=== PATIENT | male | born 1990 | race Caucasian/White ===

== ENCOUNTER 2017-06-21 16:16 | Inpatient (IN) | payer MEDICAID ==
[~2017-06-21] VITALS: Ht 177.8 cm; Wt 68.2 kg
[~2017-06-21 16:16] MED LIST: MECL-111 PO; NO HOME MEDS; ONDA4TAB12 PO
[2017-06-21 17:39] LABS: BASOPHILS # (AUTO) 0.1 X10'3 (0-0.2); BASOPHILS % (AUTO) 0.5 % (0-1); EOSINOPHILS # (AUTO) 0.2 X10'3 (0-0.9); EOSINOPHILS % (AUTO) 1.8 % (0-6); HEMATOCRIT 49.2 % (42.0-52.0); HEMOGLOBIN 16.5 g/dl (14.0-17.9); LYMPHOCYTES # (AUTO) 2.5 X10'3 (1.1-4.8); LYMPHOCYTES % (AUTO) 22.9 % (21-51); MEAN CORPUSCULAR HEMOGLOBIN 29.4 PG (27.0-31.0); MEAN CORPUSCULAR HGB CONC 33.5 % (33.0-36.5); MEAN CORPUSCULAR VOLUME 87.6 FL (78-98); MEAN PLATELET VOLUME 8.3 FL (7.4-10.4); MONOCYTES # (AUTO) 0.6 X10'3 (0-0.9); MONOCYTES % (AUTO) 5.5 % (2-12); NEUTROPHILS # (AUTO) 7.5 X10'3 (1.8-7.7); NEUTROPHILS % (AUTO) 69.3 % (42-75); PLATELET COUNT 266 X10'3 (140-440); RED BLOOD COUNT 5.61 X10'6 (4.70-6.10); RED CELL DISTRIBUTION WIDTH 12.3 % (11.5-14.5); WHITE BLOOD COUNT 10.9 X10'3 (4.5-11.0)
[2017-06-21 17:49] LABS: PARTIAL THROMBOPLASTIN TIME 26 SECONDS (22-32); PROTHROMBIN TIME 10.4 SECONDS (9.0-12.0)
[2017-06-21 17:54] LABS: ALANINE AMINOTRANSFERASE 40 U/L (12-78); ALBUMIN 4.5 G/DL (3.4-5.0); ALBUMIN/GLOBULIN RATIO 1.2 (1.1-1.5); ALKALINE PHOSPHATASE 78 IU/L (46-116); ANION GAP 10 (8-16); ASPARTATE AMINO TRANSFERASE 16 U/L (10-37); BLOOD UREA NITROGEN 12 MG/DL (7-18); BUN/CREATININE RATIO 14.6 (5.4-32.0); CHLORIDE 104 MMOL/L (99-107); CREATININE 0.82 MG/DL (0.60-1.10); GLUCOSE 100 MG/DL (70-104); SODIUM 142 MMOL/L (135-145); TOTAL CARBON DIOXIDE 28.3 MMOL/L (24-32); TOTAL PROTEIN 8.3 G/DL (6.4-8.2); eGFR > 90 ML/MIN
[2017-06-21] MEDS ORDERED: nitroGLYCERIN 0.4mg SUBLingual tab SL PRN (19:40)
[2017-06-21] MEDS ORDERED: aspirin 81mg tab.chew PO ONE (19:40)
[2017-06-21] MEDS ORDERED: temazepam 15mg capsule PO PRN (21:00)
[2017-06-21] MEDS ORDERED: normal saline 1000ml 1,000 ML IVB ONE (21:43)
[2017-06-21] MEDS: normal saline 1000ml 1,000 ML IV SCH (21:44)
[2017-06-21] MEDS ORDERED: magnesium hydroxide 30ml (MOM) UD suspension PO PRN (21:45)
[2017-06-21] MEDS ORDERED: acetaminophen 650mg rectal suppository RC PRN (21:45)
[2017-06-21] MEDS ORDERED: diphenhydrAMINE 50 mg/ml inj IV PRN (21:45)
[2017-06-21] MEDS ORDERED: HYDROcodone/acetaminophen 5mg/325mg tablet PO PRN (21:45)
[2017-06-21] MEDS ORDERED: acetaminophen 325mg tablet PO PRN ×2 (21:45)
[2017-06-21] MEDS ORDERED: diphenhydrAMINE 25mg capsule PO PRN (21:45)
[2017-06-21] MEDS ORDERED: ondansetron/PF 4mg/2ml inj IV PRN (21:45)
[2017-06-21] MEDS ORDERED: bisacodyl 10mg suppository rectal RC PRN (21:45)
[2017-06-21] MEDS ORDERED: metoclopramide 5 mg/ml inj IV PRN (21:45)
[2017-06-21] MEDS ORDERED: HYDROcodone/acetaminophen 10/325mg tab PO PRN (21:45)
[2017-06-21] MEDS ORDERED: mag hydrox/Alum hydrox/simeth 30ml oral suspension PO PRN (21:45)
[2017-06-21 22:36] LABS: CHOL/HDL RATIO 5.3 (0.00-4.99); CHOLESTEROL 165 MG/DL (0-200); HDL CHOLESTEROL 31 MG/DL (35-60); LDL CHOLESTEROL 118 MG/DL (50-100); LIPASE 98 U/L (73-393); MAGNESIUM 2.1 MG/DL (1.5-2.4); PHOSPHORUS 3.8 MG/DL (2.3-4.5); TRIGLYCERIDES 208 MG/DL (20-135)
[2017-06-21 22:50] LABS: URINE AMPHETAMINE SCREEN NEGATIVE (Neg); URINE BARBITUATE SCREEN NEGATIVE (Neg); URINE BENZODIAZEPINES SCREEN NEGATIVE (Neg); URINE CANNABINOID SCREEN NEGATIVE (Neg); URINE COCAINE SCREEN NEGATIVE (Neg); URINE METHADONE SCREEN NEGATIVE (Neg); URINE OPIATE SCREEN NEGATIVE (Neg); URINE PHENCYCLIDINE SCREEN NEGATIVE (Neg)
[2017-06-21 22:56] LABS: D-DIMER < 0.19 MG/L FEU (0-0.50)
[2017-06-21 23:00] VITALS: BP 118/74
[2017-06-21] MEDS: heparin, porcine 5000 units/ml vial SQ SCH (23:13)
[2017-06-22 05:47] LABS: BASOPHILS % (AUTO) 0.2 % (0-1); EOSINOPHILS # (AUTO) 0.3 X10'3 (0-0.9); EOSINOPHILS % (AUTO) 2.1 % (0-6); HEMATOCRIT 42.9 % (42.0-52.0); HEMOGLOBIN 14.6 g/dl (14.0-17.9); LYMPHOCYTES % (AUTO) 40.7 % (21-51); MEAN CORPUSCULAR HEMOGLOBIN 29.9 PG (27.0-31.0); MEAN CORPUSCULAR HGB CONC 33.9 % (33.0-36.5); MEAN CORPUSCULAR VOLUME 88.3 FL (78-98); MEAN PLATELET VOLUME 8.6 FL (7.4-10.4); MONOCYTES # (AUTO) 0.9 X10'3 (0-0.9); MONOCYTES % (AUTO) 7.5 % (2-12); NEUTROPHILS # (AUTO) 6.1 X10'3 (1.8-7.7); NEUTROPHILS % (AUTO) 49.5 % (42-75); PLATELET COUNT 232 X10'3 (140-440); RED BLOOD COUNT 4.86 X10'6 (4.70-6.10); RED CELL DISTRIBUTION WIDTH 12.5 % (11.5-14.5); WHITE BLOOD COUNT 12.3 X10'3 (4.5-11.0)
[2017-06-22 06:01] LABS: ALBUMIN 3.6 G/DL (3.4-5.0); ANION GAP 6 (8-16); BLOOD UREA NITROGEN 11 MG/DL (7-18); BUN/CREATININE RATIO 12.9 (5.4-32.0); CALCIUM 9.1 MG/DL (8.5-10.1); CHLORIDE 109 MMOL/L (99-107); CREATININE 0.85 MG/DL (0.60-1.10); GLUCOSE 90 MG/DL (70-104); POTASSIUM 3.9 MMOL/L (3.5-5.1); SODIUM 144 MMOL/L (135-145); eGFR > 90 ML/MIN
[2017-06-22] MEDS ORDERED: pantoprazole 40mg Tablet.DR PO SCH (07:30)
[2017-06-22] MEDS ORDERED: docusate sod 100mg capsule PO SCH (08:00)
[2017-06-22] MEDS ORDERED: nicotine 21mg patch - 24 hr TD SCH (08:00)
[2017-06-22] MEDS ORDERED: aspirin 81mg tab.chew PO SCH (08:30)
[2017-06-22] MEDS: normal saline 1000ml 1,000 ML IV SCH (08:45)
[2017-06-22] MEDS: heparin, porcine 5000 units/ml vial SQ SCH ×2 (08:50→16:10)
[2017-06-22 08:55] VITALS: BP 120/68
[2017-06-22] MEDS ORDERED: nitroGLYCERIN 0.4mg SUBLingual tab SL PRN (15:05)
[2017-06-22] MEDS ORDERED: regadenoson 0.4mg/5ml syringe IV ONE (15:05)
[2017-06-22] MEDS ORDERED: aminophylline 250mg/10ml inj. IV PRN (15:05)
[2017-06-22] MEDS ORDERED: metoprolol tartrate 1mg/ml inj IV PRN (15:05)
[2017-06-22] MEDS ORDERED: iohexol 300mg/ml 100ml inj. ONE (16:00)
[2017-06-22] MEDS ORDERED: QUET50TA PO (16:25)
[2017-06-22] MEDS ORDERED: NICO-687 TD (16:25)
[2017-06-22] MEDS ORDERED: QUEtiapine 25mg tablet PO STA (17:15)
== END 2017-06-22 18:21 | disposition home or self-care (01) | DRG 203 ==
LOC: ER 16:17 → ED HOLD 21:49 → EDBEDREQ 22:20 → SUR 3N 22:56
PROVIDERS: ADMIT Family Medicine; ATTEND Family Medicine
PROC: BW241ZZ Computerized Tomography (CT Scan) of Chest and Abdomen using Low Osmolar Contrast (ICD-10-PCS; principal; 2017-06-22)
DX: R07.89 Other chest pain (principal); F20.9 Schizophrenia, unspecified; I10 Essential (primary) hypertension; E86.1 Hypovolemia; F12.90 Cannabis use, unspecified, uncomplicated; F17.210 Nicotine dependence, cigarettes, uncomplicated; F31.9 Bipolar disorder, unspecified; F41.0 Panic disorder [episodic paroxysmal anxiety]; F41.1 Generalized anxiety disorder; F90.9 Attention-deficit hyperactivity disorder, unspecified type; I49.3 Ventricular premature depolarization; K31.9 Disease of stomach and duodenum, unspecified; Y90.3 Blood alcohol level of 60-79 mg/100 ml; F10.10 Alcohol abuse, uncomplicated; F15.10 Other stimulant abuse, uncomplicated; Z88.0 Allergy status to penicillin; Z88.8 Allergy status to other drugs, medicaments and biological substances; Z79.899 Other long term (current) drug therapy; Z79.01 Long term (current) use of anticoagulants; Z79.82 Long term (current) use of aspirin; Z82.49 Family history of ischemic heart disease and other diseases of the circulatory system; Z56.0 Unemployment, unspecified
CPT/HCPCS: 36415; 71045; 71260; 80048; 80053; 80061; 80305; 83690; 83735; 84100; 84443; 84484; 85025; 85379; 85610; 85730; 87070; 93005; 93306; 99285; J1644; J7030; Q9967

== ENCOUNTER 2017-06-24 00:13 | Observation (INO) | payer MEDICAID ==
[~2017-06-24] VITALS: Ht 177.8 cm; Wt 70.0 kg
[2017-06-24] VITALS (11 sets, daily range): BP systolic 116–168; BP diastolic 72–102
[~2017-06-24 00:13] MED LIST changes: -MECL-111 PO; +NICO-687 TD; -NO HOME MEDS; -ONDA4TAB12 PO; +QUET50TA PO
[2017-06-24] MEDS ORDERED: aspirin 81mg tab.chew PO ONE ×2 (00:40→01:25)
[2017-06-24] MEDS ORDERED: nitroGLYCERIN 0.4mg SUBLingual tab SL PRN ×3 (00:40→04:25)
[2017-06-24 00:59] LABS: BASOPHILS # (AUTO) 0.1 X10'3 (0-0.2); BASOPHILS % (AUTO) 0.7 % (0-1); EOSINOPHILS # (AUTO) 0.1 X10'3 (0-0.9); HEMATOCRIT 45.9 % (42.0-52.0); HEMOGLOBIN 15.4 g/dl (14.0-17.9); LYMPHOCYTES # (AUTO) 3.7 X10'3 (1.1-4.8); LYMPHOCYTES % (AUTO) 30.5 % (21-51); MEAN CORPUSCULAR HEMOGLOBIN 29.6 PG (27.0-31.0); MEAN CORPUSCULAR HGB CONC 33.6 % (33.0-36.5); MEAN CORPUSCULAR VOLUME 88.1 FL (78-98); MEAN PLATELET VOLUME 8.6 FL (7.4-10.4); MONOCYTES # (AUTO) 0.7 X10'3 (0-0.9); MONOCYTES % (AUTO) 5.4 % (2-12); NEUTROPHILS # (AUTO) 7.7 X10'3 (1.8-7.7); NEUTROPHILS % (AUTO) 62.4 % (42-75); PLATELET COUNT 266 X10'3 (140-440); RED BLOOD COUNT 5.21 X10'6 (4.70-6.10); RED CELL DISTRIBUTION WIDTH 11.4 % (11.5-14.5); WHITE BLOOD COUNT 12.3 X10'3 (4.5-11.0)
[2017-06-24 01:09] LABS: PARTIAL THROMBOPLASTIN TIME 25 SECONDS (22-32)
[2017-06-24 01:24] LABS: CREATINE KINASE 65 U/L (39-308)
[2017-06-24 01:27] LABS: C-REACTIVE PROTEIN < 0.05 MG/DL (0.0-0.5)
[2017-06-24 02:12] LABS: ALANINE AMINOTRANSFERASE 40 U/L (12-78); ALBUMIN 4.5 G/DL (3.4-5.0); ALBUMIN/GLOBULIN RATIO 1.2 (1.1-1.5); ALKALINE PHOSPHATASE 87 IU/L (46-116); ANION GAP 12 (8-16); ASPARTATE AMINO TRANSFERASE 15 U/L (10-37); BILIRUBIN,TOTAL 0.6 MG/DL (0.1-1.0); BLOOD UREA NITROGEN 14 MG/DL (7-18); BUN/CREATININE RATIO 17.7 (5.4-32.0); CALCIUM 9.9 MG/DL (8.5-10.1); CHLORIDE 105 MMOL/L (99-107); CREATININE 0.79 MG/DL (0.60-1.10); GLUCOSE 103 MG/DL (70-104); POTASSIUM 3.9 MMOL/L (3.5-5.1); SODIUM 144 MMOL/L (135-145); TOTAL CARBON DIOXIDE 27.4 MMOL/L (24-32); TOTAL PROTEIN 8.2 G/DL (6.4-8.2); eGFR > 90 ML/MIN
[2017-06-24 02:19] LABS: CLARITY,URINE Clear (Clear); COLOR,URINE Yellow (Yellow); GLUCOSE, URINE Negative (Neg); KETONES,URINE Negative (Neg); LEUKOCYTE ESTERASE ,URINE Negative (Neg); NITRITES, URINE Negative (Neg); OCCULT BLOOD,URINE Negative (Neg); PROTEIN,URINE Negative (Neg); UROBILINOGEN,URINE 0.2 E.U/dL (0.2-1.0)
[2017-06-24 02:26] LABS: UA COLLECTION TYPE CLN CATCH MIDSTREAM
[2017-06-24 02:28] LABS: URINE AMPHETAMINE SCREEN NEGATIVE (Neg); URINE BARBITUATE SCREEN NEGATIVE (Neg); URINE BENZODIAZEPINES SCREEN NEGATIVE (Neg); URINE CANNABINOID SCREEN NEGATIVE (Neg); URINE COCAINE SCREEN NEGATIVE (Neg); URINE METHADONE SCREEN NEGATIVE (Neg); URINE OPIATE SCREEN NEGATIVE (Neg); URINE PHENCYCLIDINE SCREEN NEGATIVE (Neg)
[2017-06-24] MEDS ORDERED: aminophylline 250mg/10ml inj. IV PRN (04:25)
[2017-06-24] MEDS ORDERED: mag hydrox/Alum hydrox/simeth 30ml oral suspension PO PRN (04:25)
[2017-06-24] MEDS ORDERED: regadenoson 0.4mg/5ml syringe IV ONE ×2 (04:25→09:39)
[2017-06-24] MEDS ORDERED: metoprolol tartrate 1mg/ml inj IV PRN (04:25)
[2017-06-24] MEDS ORDERED: ondansetron/PF 4mg/2ml inj IV PRN (04:25)
[2017-06-24] MEDS ORDERED: magnesium hydroxide 30ml (MOM) UD suspension PO PRN (04:25)
[2017-06-24] MEDS ORDERED: acetaminophen 325mg tablet PO PRN ×2 (04:25)
[2017-06-24] MEDS: QUEtiapine 25mg tablet PO SCH ×2 (08:26→19:53)
[2017-06-24] MEDS ORDERED: aminophylline inj. 0 ML IV ONE (09:39)
[2017-06-24] MEDS ORDERED: nicotine 14mg patch - 24hr TD SCH (12:20)
[2017-06-24] MEDS ORDERED: ATEN25TA PO (18:12)
[2017-06-24] MEDS ORDERED: ATOR40TA PO (18:12)
[2017-06-24] MEDS ORDERED: ASPI81TA52 PO (18:12)
== END 2017-06-24 20:10 | disposition home or self-care (01) ==
LOC: ER 00:14 → ED HOLD 04:23 → PCU 3S 05:25
PROVIDERS: ADMIT Internal Medicine; ATTEND Family Medicine
DX: R07.89 Other chest pain (principal); R55 Syncope and collapse; D72.829 Elevated white blood cell count, unspecified; F20.9 Schizophrenia, unspecified; F15.90 Other stimulant use, unspecified, uncomplicated; Z72.0 Tobacco use; F10.20 Alcohol dependence, uncomplicated; Z82.49 Family history of ischemic heart disease and other diseases of the circulatory system; Z90.81 Acquired absence of spleen
CPT/HCPCS: 36415; 78452; 80053; 80305; 81003; 82550; 82553; 82948; 83735; 83880; 84484; 85025; 85610; 85730; 86140; 87070; 93005; 93017; 99285; A9500; G0378; J0280

== ENCOUNTER 2017-06-26 01:33 | Emergency (ER) | payer MEDICAID ==
[~2017-06-26] VITALS: Ht 154.9 cm; Wt 68.1 kg
[~2017-06-26 01:33] MED LIST changes: +ASPI81TA52 PO; +ATEN25TA PO; +ATOR40TA PO
[2017-06-26 02:55] VITALS: BP 142/63
== END 2017-06-26 02:49 | disposition home or self-care (01) ==
LOC: ER 01:33
DX: R00.2 Palpitations (principal); F20.9 Schizophrenia, unspecified; Z88.0 Allergy status to penicillin; Z88.8 Allergy status to other drugs, medicaments and biological substances
CPT/HCPCS: 93005; 99283

== ENCOUNTER 2017-06-27 22:32 | Emergency (ER) | payer MEDICAID ==
[~2017-06-27] VITALS: Ht 177.8 cm; Wt 70.6 kg
[2017-06-28 02:32] VITALS: BP 143/82
[2017-06-28] MEDS ORDERED: CLIN-80 PO (03:03)
== END 2017-06-28 03:00 | disposition home or self-care (01) ==
LOC: ER 22:33
DX: K04.7 Periapical abscess without sinus (principal); F12.10 Cannabis abuse, uncomplicated; F15.10 Other stimulant abuse, uncomplicated; Z88.8 Allergy status to other drugs, medicaments and biological substances; Z88.0 Allergy status to penicillin; Z79.82 Long term (current) use of aspirin
CPT/HCPCS: 99283

== ENCOUNTER 2017-07-19 19:07 | Emergency (ER) | payer MEDICAID ==
[~2017-07-19] VITALS: Ht 177.8 cm; Wt 71.8 kg
[~2017-07-19 19:07] MED LIST changes: +CLIN-80 PO
[2017-07-19 19:40] LABS: BASOPHILS # (AUTO) 0.1 X10'3 (0-0.2); BASOPHILS % (AUTO) 0.5 % (0-1); EOSINOPHILS # (AUTO) 0.2 X10'3 (0-0.9); EOSINOPHILS % (AUTO) 1.9 % (0-6); HEMATOCRIT 48.2 % (42.0-52.0); HEMOGLOBIN 16.5 g/dl (14.0-17.9); LYMPHOCYTES # (AUTO) 3.1 X10'3 (1.1-4.8); LYMPHOCYTES % (AUTO) 27.7 % (21-51); MEAN CORPUSCULAR HEMOGLOBIN 29.9 PG (27.0-31.0); MEAN CORPUSCULAR HGB CONC 34.3 % (33.0-36.5); MEAN CORPUSCULAR VOLUME 87.2 FL (78-98); MEAN PLATELET VOLUME 8.4 FL (7.4-10.4); MONOCYTES # (AUTO) 0.6 X10'3 (0-0.9); MONOCYTES % (AUTO) 5.6 % (2-12); NEUTROPHILS # (AUTO) 7.2 X10'3 (1.8-7.7); NEUTROPHILS % (AUTO) 64.3 % (42-75); PLATELET COUNT 283 X10'3 (140-440); RED BLOOD COUNT 5.52 X10'6 (4.70-6.10); RED CELL DISTRIBUTION WIDTH 12.3 % (11.5-14.5); WHITE BLOOD COUNT 11.2 X10'3 (4.5-11.0)
[2017-07-19 19:52] LABS: PARTIAL THROMBOPLASTIN TIME 26 SECONDS (22-32); PROTHROMBIN TIME 10.6 SECONDS (9.0-12.0)
[2017-07-19 19:59] LABS: ALANINE AMINOTRANSFERASE 64 U/L (12-78); ALBUMIN 4.8 G/DL (3.4-5.0); ALBUMIN/GLOBULIN RATIO 1.3 (1.1-1.5); ALKALINE PHOSPHATASE 88 IU/L (46-116); ANION GAP 8 (8-16); ASPARTATE AMINO TRANSFERASE 19 U/L (10-37); BILIRUBIN,TOTAL 1.2 MG/DL (0.1-1.0); BLOOD UREA NITROGEN 15 MG/DL (7-18); BUN/CREATININE RATIO 16.7 (5.4-32.0); CALCIUM 9.9 MG/DL (8.5-10.1); CHLORIDE 103 MMOL/L (99-107); GLUCOSE 101 MG/DL (70-104); POTASSIUM 3.7 MMOL/L (3.5-5.1); SODIUM 141 MMOL/L (135-145); TOTAL CARBON DIOXIDE 29.6 MMOL/L (24-32); TOTAL PROTEIN 8.5 G/DL (6.4-8.2); eGFR > 90 ML/MIN
[2017-07-19] MEDS ORDERED: CIPR-230 PO (21:48)
[2017-07-19] MEDS ORDERED: LOPE-155 PO (21:48)
[2017-07-19] MEDS ORDERED: IBUP-1984 PO (21:49)
[2017-07-19 21:55] VITALS: BP 128/77
[2017-07-20] MEDS ORDERED: ALBU8.5H8 IH (18:11)
== END 2017-07-19 21:57 | disposition home or self-care (01) ==
LOC: ER 19:08
DX: R07.89 Other chest pain (principal); R19.7 Diarrhea, unspecified; R68.83 Chills (without fever); I49.9 Cardiac arrhythmia, unspecified; F12.10 Cannabis abuse, uncomplicated; F15.10 Other stimulant abuse, uncomplicated; Z98.890 Other specified postprocedural states; Z56.0 Unemployment, unspecified; Z88.0 Allergy status to penicillin; Z88.1 Allergy status to other antibiotic agents; Z88.8 Allergy status to other drugs, medicaments and biological substances; Z79.82 Long term (current) use of aspirin; Z79.899 Other long term (current) drug therapy
CPT/HCPCS: 36415; 71045; 80053; 84484; 85025; 85610; 85730; 93005; 99285

== ENCOUNTER 2017-07-20 16:14 | Emergency (ER) | payer MEDICAID ==
[~2017-07-20] VITALS: Ht 177.8 cm; Wt 70.8 kg
[~2017-07-20 16:14] MED LIST changes: +CIPR-230 PO; +IBUP-1984 PO; +LOPE-155 PO
[2017-07-20] MEDS ORDERED: ketorolac trometh inj. 60 MG/2 ML VIAL IM ONE (17:05)
[2017-07-20] MEDS ORDERED: ALBU8.5H8 IH (18:11)
[2017-07-20 18:17] VITALS: BP 135/41
== END 2017-07-20 18:20 | disposition home or self-care (01) ==
LOC: ER 16:15
DX: F41.9 Anxiety disorder, unspecified (principal); F20.9 Schizophrenia, unspecified; F17.200 Nicotine dependence, unspecified, uncomplicated; F12.10 Cannabis abuse, uncomplicated; F15.10 Other stimulant abuse, uncomplicated; Z88.1 Allergy status to other antibiotic agents; Z88.0 Allergy status to penicillin; Z88.8 Allergy status to other drugs, medicaments and biological substances; Z79.82 Long term (current) use of aspirin
CPT/HCPCS: 93005; 96372; 99283; J1885

== ENCOUNTER 2017-07-24 01:44 | Emergency (ER) | payer MEDICAID ==
[~2017-07-24] VITALS: Ht 177.8 cm; Wt 71.3 kg
[~2017-07-24 01:44] MED LIST changes: +ALBU8.5H8 IH
[2017-07-24] MEDS ORDERED: ESCI5TAB PO (04:12)
[2017-07-24 05:02] VITALS: BP 135/63
== END 2017-07-24 04:59 | disposition home or self-care (01) ==
LOC: ER 01:45
DX: F41.9 Anxiety disorder, unspecified (principal); F31.9 Bipolar disorder, unspecified; F20.9 Schizophrenia, unspecified; F17.200 Nicotine dependence, unspecified, uncomplicated; F12.10 Cannabis abuse, uncomplicated; F15.10 Other stimulant abuse, uncomplicated; Z56.0 Unemployment, unspecified; Z88.0 Allergy status to penicillin; Z88.1 Allergy status to other antibiotic agents; Z88.8 Allergy status to other drugs, medicaments and biological substances; Z79.82 Long term (current) use of aspirin; Z79.899 Other long term (current) drug therapy
CPT/HCPCS: 99284

== ENCOUNTER 2017-07-29 22:11 | Emergency (ER) | payer MEDICAID ==
[~2017-07-29] VITALS: Ht 177.8 cm; Wt 72.4 kg
[~2017-07-29 22:11] MED LIST changes: -ATOR40TA PO; +ESCI5TAB PO
[2017-07-29 23:17] VITALS: BP 124/63
== END 2017-07-29 23:19 | disposition home or self-care (01) ==
LOC: ER 22:12
DX: R06.02 Shortness of breath (principal); R07.89 Other chest pain; R55 Syncope and collapse; I49.9 Cardiac arrhythmia, unspecified; F12.10 Cannabis abuse, uncomplicated; F15.10 Other stimulant abuse, uncomplicated; Z56.0 Unemployment, unspecified; Z88.0 Allergy status to penicillin; Z88.8 Allergy status to other drugs, medicaments and biological substances; Z79.82 Long term (current) use of aspirin; Z79.899 Other long term (current) drug therapy
CPT/HCPCS: 93005; 99283

== ENCOUNTER 2017-08-07 10:52 | Emergency (ER) | payer MEDICAID ==
[~2017-08-07] VITALS: Ht 177.8 cm; Wt 70.0 kg
[~2017-08-07 10:52] MED LIST changes: -CIPR-230 PO; -CLIN-80 PO
[2017-08-07 11:32] LABS: BASOPHILS % (AUTO) 0.5 % (0-1); EOSINOPHILS # (AUTO) 0.1 X10'3 (0-0.9); EOSINOPHILS % (AUTO) 1.2 % (0-6); HEMATOCRIT 49.5 % (42.0-52.0); HEMOGLOBIN 16.9 g/dl (14.0-17.9); LYMPHOCYTES % (AUTO) 24.5 % (21-51); MEAN CORPUSCULAR HEMOGLOBIN 29.7 PG (27.0-31.0); MEAN CORPUSCULAR HGB CONC 34.2 % (33.0-36.5); MEAN CORPUSCULAR VOLUME 86.9 FL (78-98); MEAN PLATELET VOLUME 7.9 FL (7.4-10.4); MONOCYTES # (AUTO) 0.5 X10'3 (0-0.9); MONOCYTES % (AUTO) 5.5 % (2-12); NEUTROPHILS # (AUTO) 5.7 X10'3 (1.8-7.7); NEUTROPHILS % (AUTO) 68.3 % (42-75); PLATELET COUNT 307 X10'3 (140-440); RED CELL DISTRIBUTION WIDTH 12.8 % (11.5-14.5); WHITE BLOOD COUNT 8.3 X10'3 (4.5-11.0)
[2017-08-07 11:43] LABS: PARTIAL THROMBOPLASTIN TIME 27 SECONDS (22-32); PROTHROMBIN TIME 10.8 SECONDS (9.0-12.0)
[2017-08-07 11:55] LABS: ALANINE AMINOTRANSFERASE 49 U/L (12-78); ALBUMIN 4.4 G/DL (3.4-5.0); ALBUMIN/GLOBULIN RATIO 1.2 (1.1-1.5); ALKALINE PHOSPHATASE 80 IU/L (46-116); ANION GAP 14 (8-16); ASPARTATE AMINO TRANSFERASE 20 U/L (10-37); BILIRUBIN,TOTAL 1.1 MG/DL (0.1-1.0); BLOOD UREA NITROGEN 13 MG/DL (7-18); BUN/CREATININE RATIO 13.7 (5.4-32.0); CALCIUM 9.6 MG/DL (8.5-10.1); CHLORIDE 103 MMOL/L (99-107); CREATININE 0.95 MG/DL (0.60-1.10); GLUCOSE 135 MG/DL (70-104); POTASSIUM 3.7 MMOL/L (3.5-5.1); SODIUM 143 MMOL/L (135-145); TOTAL CARBON DIOXIDE 25.7 MMOL/L (24-32); eGFR > 90 ML/MIN
[2017-08-07 13:10] LABS: URINE AMPHETAMINE SCREEN NEGATIVE (Neg); URINE BARBITUATE SCREEN NEGATIVE (Neg); URINE BENZODIAZEPINES SCREEN NEGATIVE (Neg); URINE CANNABINOID SCREEN POSITIVE (Neg); URINE COCAINE SCREEN NEGATIVE (Neg); URINE METHADONE SCREEN NEGATIVE (Neg); URINE OPIATE SCREEN NEGATIVE (Neg); URINE PHENCYCLIDINE SCREEN NEGATIVE (Neg)
[2017-08-07 14:26] VITALS: BP 115/71
== END 2017-08-07 14:27 | disposition home or self-care (01) ==
LOC: ER 10:52
DX: R55 Syncope and collapse (principal); F41.9 Anxiety disorder, unspecified; F20.9 Schizophrenia, unspecified; F32.9 Major depressive disorder, single episode, unspecified; F12.90 Cannabis use, unspecified, uncomplicated; F15.90 Other stimulant use, unspecified, uncomplicated; Z56.0 Unemployment, unspecified; Z88.0 Allergy status to penicillin; Z79.899 Other long term (current) drug therapy; Z79.82 Long term (current) use of aspirin
CPT/HCPCS: 36415; 71045; 80053; 80305; 82948; 84484; 85025; 85610; 85730; 93005; 99291

== ENCOUNTER 2017-08-09 21:35 | Emergency (ER) | payer MEDICAID ==
[~2017-08-09] VITALS: Ht 177.8 cm; Wt 71.3 kg
[2017-08-09 22:04] VITALS: BP 144/96
== END 2017-08-09 22:09 | disposition home or self-care (01) ==
LOC: ER 21:36
DX: R07.89 Other chest pain (principal); J20.9 Acute bronchitis, unspecified; G62.9 Polyneuropathy, unspecified; F12.10 Cannabis abuse, uncomplicated; F15.10 Other stimulant abuse, uncomplicated; Z88.0 Allergy status to penicillin; Z88.1 Allergy status to other antibiotic agents; Z88.8 Allergy status to other drugs, medicaments and biological substances; Z79.82 Long term (current) use of aspirin; Z79.899 Other long term (current) drug therapy; Z56.0 Unemployment, unspecified
CPT/HCPCS: 99281

== ENCOUNTER 2017-08-11 11:41 | Emergency (ER) | payer MEDICAID ==
[~2017-08-11] VITALS: Ht 177.8 cm; Wt 75.0 kg
[2017-08-11 12:08] LABS: BASOPHILS # (AUTO) 0.2 X10'3 (0-0.2); BASOPHILS % (AUTO) 2.1 % (0-1); EOSINOPHILS # (AUTO) 0.1 X10'3 (0-0.9); EOSINOPHILS % (AUTO) 0.7 % (0-6); HEMATOCRIT 50.2 % (42.0-52.0); HEMOGLOBIN 17.2 g/dl (14.0-17.9); LYMPHOCYTES # (AUTO) 2.6 X10'3 (1.1-4.8); LYMPHOCYTES % (AUTO) 26.7 % (21-51); MEAN CORPUSCULAR HEMOGLOBIN 29.5 PG (27.0-31.0); MEAN CORPUSCULAR HGB CONC 34.2 % (33.0-36.5); MEAN CORPUSCULAR VOLUME 86.3 FL (78-98); MEAN PLATELET VOLUME 8.4 FL (7.4-10.4); MONOCYTES # (AUTO) 0.5 X10'3 (0-0.9); NEUTROPHILS # (AUTO) 6.2 X10'3 (1.8-7.7); NEUTROPHILS % (AUTO) 65.5 % (42-75); PLATELET COUNT 305 X10'3 (140-440); RED BLOOD COUNT 5.82 X10'6 (4.70-6.10); RED CELL DISTRIBUTION WIDTH 11.9 % (11.5-14.5); WHITE BLOOD COUNT 9.6 X10'3 (4.5-11.0)
[2017-08-11 12:19] LABS: PARTIAL THROMBOPLASTIN TIME 27 SECONDS (22-32); PROTHROMBIN TIME 10.7 SECONDS (9.0-12.0)
[2017-08-11 12:29] LABS: ALANINE AMINOTRANSFERASE 49 U/L (12-78); ALBUMIN 4.6 G/DL (3.4-5.0); ALBUMIN/GLOBULIN RATIO 1.3 (1.1-1.5); ALKALINE PHOSPHATASE 83 IU/L (46-116); ANION GAP 6 (8-16); ASPARTATE AMINO TRANSFERASE 21 U/L (10-37); BILIRUBIN,TOTAL 1.2 MG/DL (0.1-1.0); BLOOD UREA NITROGEN 14 MG/DL (7-18); BUN/CREATININE RATIO 15.1 (5.4-32.0); CHLORIDE 104 MMOL/L (99-107); CREATININE 0.93 MG/DL (0.60-1.10); GLUCOSE 103 MG/DL (70-104); POTASSIUM 3.9 MMOL/L (3.5-5.1); SODIUM 142 MMOL/L (135-145); TOTAL CARBON DIOXIDE 31.9 MMOL/L (24-32); TOTAL PROTEIN 8.2 G/DL (6.4-8.2); eGFR > 90 ML/MIN
[2017-08-11 12:38] LABS: CALCIUM 9.6 MG/DL (8.5-10.1)
[2017-08-11] MEDS ORDERED: LIDOcaine 1.5% w/epinephrine 1:200,000 5ml ampul IJ ONE (13:10)
[2017-08-11] MEDS ORDERED: SULF1TAB49 PO (13:35)
[2017-08-11 14:17] VITALS: BP 125/53
== END 2017-08-11 14:19 | disposition home or self-care (01) ==
LOC: ER 11:42
DX: R07.89 Other chest pain (principal); L02.411 Cutaneous abscess of right axilla; F12.10 Cannabis abuse, uncomplicated; F15.10 Other stimulant abuse, uncomplicated; Z88.0 Allergy status to penicillin; Z88.1 Allergy status to other antibiotic agents; Z88.8 Allergy status to other drugs, medicaments and biological substances; Z79.82 Long term (current) use of aspirin; Z79.1 Long term (current) use of non-steroidal anti-inflammatories (NSAID); Z79.899 Other long term (current) drug therapy; Z56.0 Unemployment, unspecified
CPT/HCPCS: 10060; 36415; 71045; 80053; 84484; 85025; 85610; 85730; 93005; 99285; J3490

== ENCOUNTER 2017-08-14 22:27 | Emergency (ER) | payer MEDICAID ==
[~2017-08-14] VITALS: Ht 177.8 cm; Wt 71.0 kg
[~2017-08-14 22:27] MED LIST changes: +SULF1TAB49 PO
[2017-08-14 23:57] VITALS: BP 137/96
== END 2017-08-14 23:58 | disposition home or self-care (01) ==
LOC: ER 22:28
DX: R07.89 Other chest pain (principal); F12.10 Cannabis abuse, uncomplicated; F15.10 Other stimulant abuse, uncomplicated; Z88.1 Allergy status to other antibiotic agents; Z88.0 Allergy status to penicillin; Z88.8 Allergy status to other drugs, medicaments and biological substances; Z79.82 Long term (current) use of aspirin
CPT/HCPCS: 93005; 99283

== ENCOUNTER 2017-08-20 22:04 | Emergency (ER) | payer MEDICAID ==
[~2017-08-20] VITALS: Ht 147.3 cm; Wt 70.4 kg
[~2017-08-20 22:04] MED LIST changes: -IBUP-1984 PO
[2017-08-21] MEDS ORDERED: aspirin 81mg tab.chew PO ONE (00:45)
[2017-08-21 00:56] VITALS: BP 138/75
== END 2017-08-21 00:59 | disposition home or self-care (01) ==
LOC: ER 22:06
DX: R07.89 Other chest pain (principal); F12.10 Cannabis abuse, uncomplicated; F15.10 Other stimulant abuse, uncomplicated; Z88.0 Allergy status to penicillin; Z88.1 Allergy status to other antibiotic agents; Z88.8 Allergy status to other drugs, medicaments and biological substances; Z86.14 Personal history of Methicillin resistant Staphylococcus aureus infection; Z79.82 Long term (current) use of aspirin; Z79.899 Other long term (current) drug therapy; Z56.0 Unemployment, unspecified
CPT/HCPCS: 71046; 93005; 99284

== ENCOUNTER 2017-08-28 20:31 | Emergency (ER) | payer MEDICAID ==
[~2017-08-28] VITALS: Ht 177.8 cm; Wt 72.5 kg
[~2017-08-28 20:31] MED LIST changes: -ESCI5TAB PO
[2017-08-28] MEDS ORDERED: normal saline 1000ML IV soln IVB ONE (21:45)
[2017-08-28] MEDS ORDERED: iohexol 300mg/ml 100ml inj. ONE (22:10)
[2017-08-28 22:24] LABS: BASOPHILS # (AUTO) 0.1 X10'3 (0-0.2); BASOPHILS % (AUTO) 0.8 % (0-1); EOSINOPHILS # (AUTO) 0.1 X10'3 (0-0.9); HEMATOCRIT 48.2 % (42.0-52.0); HEMOGLOBIN 16.4 g/dl (14.0-17.9); LYMPHOCYTES # (AUTO) 3.6 X10'3 (1.1-4.8); LYMPHOCYTES % (AUTO) 32.9 % (21-51); MEAN CORPUSCULAR HEMOGLOBIN 29.8 PG (27.0-31.0); MEAN CORPUSCULAR HGB CONC 34.1 % (33.0-36.5); MEAN CORPUSCULAR VOLUME 87.4 FL (78-98); MEAN PLATELET VOLUME 8.1 FL (7.4-10.4); MONOCYTES # (AUTO) 0.6 X10'3 (0-0.9); MONOCYTES % (AUTO) 5.6 % (2-12); NEUTROPHILS # (AUTO) 6.6 X10'3 (1.8-7.7); NEUTROPHILS % (AUTO) 59.7 % (42-75); PLATELET COUNT 241 X10'3 (140-440); RED BLOOD COUNT 5.52 X10'6 (4.70-6.10); RED CELL DISTRIBUTION WIDTH 12.3 % (11.5-14.5); WHITE BLOOD COUNT 11.1 X10'3 (4.5-11.0)
[2017-08-28 22:27] LABS: CLARITY,URINE SLIGHTLY CLOUDY (Clear); COLOR,URINE YELLOW (Yellow); GLUCOSE, URINE NEGATIVE (Neg); KETONES,URINE NEGATIVE (Neg); LEUKOCYTE ESTERASE ,URINE NEGATIVE (Neg); NITRITES, URINE NEGATIVE (Neg); OCCULT BLOOD,URINE NEGATIVE (Neg); PH,URINE 6.5 (4.8-8.0); PROTEIN,URINE NEGATIVE (Neg); UA COLLECTION TYPE CLN CATCH MIDSTREAM; UROBILINOGEN,URINE 0.2 E.U/dL (0.2-1.0)
[2017-08-28 22:40] LABS: ALANINE AMINOTRANSFERASE 60 U/L (12-78); ALBUMIN 4.4 G/DL (3.4-5.0); ALBUMIN/GLOBULIN RATIO 1.2 (1.1-1.5); ALKALINE PHOSPHATASE 81 IU/L (46-116); ANION GAP 6 (8-16); ASPARTATE AMINO TRANSFERASE 20 U/L (10-37); BILIRUBIN,TOTAL 0.7 MG/DL (0.1-1.0); BLOOD UREA NITROGEN 14 MG/DL (7-18); BUN/CREATININE RATIO 12.6 (5.4-32.0); CALCIUM 9.6 MG/DL (8.5-10.1); CHLORIDE 104 MMOL/L (99-107); CREATININE 1.11 MG/DL (0.60-1.10); GLUCOSE 99 MG/DL (70-104); LIPASE 96 U/L (73-393); POTASSIUM 4.2 MMOL/L (3.5-5.1); SODIUM 141 MMOL/L (135-145); TOTAL CARBON DIOXIDE 30.8 MMOL/L (24-32); TOTAL PROTEIN 8.2 G/DL (6.4-8.2); eGFR 81 ML/MIN
[2017-08-28 22:56] LABS: BACTERIA,URINE NONE SEEN /HPF (Neg); RBC,URINE 0-2 /HPF (0-2); WBC,URINE 0-4 /HPF (0-4)
[2017-08-28 22:57] LABS: AMORPHOUS URATES 2+; MUCUS STRANDS NONE SEEN /LPF (Neg); SQUAMOUS EPITHELIAL CELL,UR FEW /LPF (FEW)
[2017-08-29 00:05] VITALS: BP 115/66
== END 2017-08-29 00:06 | disposition home or self-care (01) ==
LOC: ER 20:32
DX: S30.1XXA Contusion of abdominal wall, initial encounter (principal); I49.9 Cardiac arrhythmia, unspecified; F12.10 Cannabis abuse, uncomplicated; F15.10 Other stimulant abuse, uncomplicated; Z56.0 Unemployment, unspecified; Z98.890 Other specified postprocedural states; Z86.14 Personal history of Methicillin resistant Staphylococcus aureus infection; Z88.0 Allergy status to penicillin; Z88.1 Allergy status to other antibiotic agents; Z88.8 Allergy status to other drugs, medicaments and biological substances; Z79.899 Other long term (current) drug therapy; Z79.82 Long term (current) use of aspirin; V89.2XXA Person injured in unspecified motor-vehicle accident, traffic, initial encounter; Y93.89 Activity, other specified; Y92.89 Other specified places as the place of occurrence of the external cause; Y99.8 Other external cause status
CPT/HCPCS: 36415; 74176; 80053; 81001; 83690; 85025; 96360; 99285; J7030; Q9967

== ENCOUNTER 2017-09-05 22:16 | Emergency (ER) | payer MEDICAID ==
[~2017-09-05] VITALS: Ht 177.8 cm; Wt 71.8 kg
[2017-09-05] MEDS ORDERED: DOXY100C2 PO (23:17)
[2017-09-05 23:45] VITALS: BP 142/81
== END 2017-09-05 23:50 | disposition home or self-care (01) ==
LOC: ER 22:17
DX: L02.411 Cutaneous abscess of right axilla (principal); I49.9 Cardiac arrhythmia, unspecified; Z86.14 Personal history of Methicillin resistant Staphylococcus aureus infection; Z56.0 Unemployment, unspecified; Z88.0 Allergy status to penicillin; Z88.8 Allergy status to other drugs, medicaments and biological substances; Z79.82 Long term (current) use of aspirin; Z79.899 Other long term (current) drug therapy
CPT/HCPCS: 99283

== ENCOUNTER 2017-09-14 22:57 | Emergency (ER) | payer MEDICAID ==
[~2017-09-14] VITALS: Ht 177.8 cm; Wt 72.7 kg
[~2017-09-14 22:57] MED LIST changes: +DOXY100C2 PO; -SULF1TAB49 PO
[2017-09-15 00:10] VITALS: BP 157/88
== END 2017-09-15 00:12 | disposition home or self-care (01) ==
LOC: ER 23:00
DX: R07.89 Other chest pain (principal); R51 Headache; I49.9 Cardiac arrhythmia, unspecified; Z86.14 Personal history of Methicillin resistant Staphylococcus aureus infection; Z56.0 Unemployment, unspecified; Z88.0 Allergy status to penicillin; Z88.1 Allergy status to other antibiotic agents; Z88.8 Allergy status to other drugs, medicaments and biological substances; Z79.82 Long term (current) use of aspirin; Z79.899 Other long term (current) drug therapy
CPT/HCPCS: 93005; 99283

== ENCOUNTER 2017-10-01 17:10 | Emergency (ER) | payer MEDICAID ==
[~2017-10-01] VITALS: Ht 177.8 cm; Wt 72.7 kg
[~2017-10-01 17:10] MED LIST changes: -DOXY100C2 PO
[2017-10-01 17:39] LABS: BASOPHILS # (AUTO) 0.1 X10'3 (0-0.2); BASOPHILS % (AUTO) 0.4 % (0-1); EOSINOPHILS # (AUTO) 0.2 X10'3 (0-0.9); EOSINOPHILS % (AUTO) 1.6 % (0-6); HEMATOCRIT 47.6 % (42.0-52.0); HEMOGLOBIN 16.6 g/dl (14.0-17.9); LYMPHOCYTES # (AUTO) 1.8 X10'3 (1.1-4.8); LYMPHOCYTES % (AUTO) 14.8 % (21-51); MEAN CORPUSCULAR HEMOGLOBIN 29.8 PG (27.0-31.0); MEAN CORPUSCULAR HGB CONC 34.9 % (33.0-36.5); MEAN CORPUSCULAR VOLUME 85.4 FL (78-98); MEAN PLATELET VOLUME 8.2 FL (7.4-10.4); MONOCYTES # (AUTO) 0.8 X10'3 (0-0.9); MONOCYTES % (AUTO) 6.9 % (2-12); NEUTROPHILS # (AUTO) 9.1 X10'3 (1.8-7.7); NEUTROPHILS % (AUTO) 76.3 % (42-75); PLATELET COUNT 269 X10'3 (140-440); RED BLOOD COUNT 5.57 X10'6 (4.70-6.10); RED CELL DISTRIBUTION WIDTH 12.4 % (11.5-14.5); WHITE BLOOD COUNT 11.9 X10'3 (4.5-11.0)
[2017-10-01 17:50] LABS: PARTIAL THROMBOPLASTIN TIME 27 SECONDS (22-32); PROTHROMBIN TIME 10.3 SECONDS (9.0-12.0)
[2017-10-01 17:57] LABS: ALANINE AMINOTRANSFERASE 91 U/L (12-78); ALBUMIN 4.1 G/DL (3.4-5.0); ALBUMIN/GLOBULIN RATIO 1.1 (1.1-1.5); ALKALINE PHOSPHATASE 84 IU/L (46-116); ANION GAP 11 (8-16); ASPARTATE AMINO TRANSFERASE 28 U/L (10-37); BILIRUBIN,TOTAL 0.8 MG/DL (0.1-1.0); BLOOD UREA NITROGEN 12 MG/DL (7-18); BUN/CREATININE RATIO 13.8 (5.4-32.0); CALCIUM 9.3 MG/DL (8.5-10.1); CHLORIDE 102 MMOL/L (99-107); CREATININE 0.87 MG/DL (0.60-1.10); GLUCOSE 99 MG/DL (70-104); POTASSIUM 3.5 MMOL/L (3.5-5.1); SODIUM 140 MMOL/L (135-145); TOTAL CARBON DIOXIDE 27.3 MMOL/L (24-32); eGFR > 90 ML/MIN
[2017-10-01 20:25] VITALS: BP 142/71
== END 2017-10-01 20:47 | disposition home or self-care (01) ==
LOC: ER 17:11
DX: R06.02 Shortness of breath (principal); R51 Headache; R42 Dizziness and giddiness; I49.9 Cardiac arrhythmia, unspecified; F12.10 Cannabis abuse, uncomplicated; Z86.14 Personal history of Methicillin resistant Staphylococcus aureus infection; Z56.0 Unemployment, unspecified; Z88.0 Allergy status to penicillin; Z88.8 Allergy status to other drugs, medicaments and biological substances; Z79.82 Long term (current) use of aspirin; Z79.899 Other long term (current) drug therapy
CPT/HCPCS: 36415; 71045; 80053; 84484; 85025; 85610; 85730; 93005; 99285

== ENCOUNTER 2017-10-09 12:56 | Emergency (ER) | payer MEDICAID ==
[~2017-10-09] VITALS: Ht 177.8 cm; Wt 72.7 kg
[2017-10-09 14:07] VITALS: BP 136/88
[2017-10-09] MEDS ORDERED: SULF1TAB49 PO (14:08)
[2017-10-09] MEDS ORDERED: LIDOcaine 1.5% w/epinephrine 1:200,000 5ml ampul IJ ONE (14:10)
== END 2017-10-09 14:50 | disposition home or self-care (01) ==
LOC: ER 12:57
DX: L02.411 Cutaneous abscess of right axilla (principal); I49.9 Cardiac arrhythmia, unspecified; F12.10 Cannabis abuse, uncomplicated; Z86.14 Personal history of Methicillin resistant Staphylococcus aureus infection; Z56.0 Unemployment, unspecified; Z88.0 Allergy status to penicillin; Z88.8 Allergy status to other drugs, medicaments and biological substances; Z79.82 Long term (current) use of aspirin; Z79.899 Other long term (current) drug therapy
CPT/HCPCS: 10060; 93005; 99283; A6449; J3490

== ENCOUNTER 2017-10-14 19:02 | Emergency (ER) | payer MEDICAID ==
[~2017-10-14] VITALS: Ht 177.8 cm; Wt 53.9 kg
[~2017-10-14 19:02] MED LIST changes: +SULF1TAB49 PO
[2017-10-14 19:09] VITALS: BP 132/76
== END 2017-10-14 22:08 | disposition left against medical advice (07) ==
LOC: ER 19:03
DX: R07.89 Other chest pain (principal); Z53.21 Procedure and treatment not carried out due to patient leaving prior to being seen by health care provider
CPT/HCPCS: 93005; 99281

== ENCOUNTER 2017-11-06 20:37 | Emergency (ER) | payer MEDICAID ==
[~2017-11-06] VITALS: Ht 177.8 cm; Wt 76.5 kg
[~2017-11-06 20:37] MED LIST changes: -SULF1TAB49 PO
[2017-11-06] MEDS ORDERED: METO-384 PO (22:41)
[2017-11-06 22:55] VITALS: BP 152/88
== END 2017-11-06 22:57 | disposition home or self-care (01) ==
LOC: ER 20:37
DX: R00.8 Other abnormalities of heart beat (principal); I10 Essential (primary) hypertension; F12.10 Cannabis abuse, uncomplicated; Z86.14 Personal history of Methicillin resistant Staphylococcus aureus infection; Z88.0 Allergy status to penicillin; Z88.1 Allergy status to other antibiotic agents; Z88.8 Allergy status to other drugs, medicaments and biological substances; Z79.82 Long term (current) use of aspirin; Z79.899 Other long term (current) drug therapy; Z56.0 Unemployment, unspecified
CPT/HCPCS: 93005; 99284

== ENCOUNTER 2017-11-30 19:04 | Emergency (ER) | payer MEDICAID ==
[~2017-11-30] VITALS: Ht 180.3 cm; Wt 72.7 kg
[~2017-11-30 19:04] MED LIST changes: +METO-384 PO
[2017-11-30 19:44] LABS: BASOPHILS # (AUTO) 0.1 X10'3 (0-0.2); BASOPHILS % (AUTO) 0.5 % (0-1); EOSINOPHILS # (AUTO) 0.1 X10'3 (0-0.9); EOSINOPHILS % (AUTO) 0.7 % (0-6); HEMATOCRIT 50.4 % (42.0-52.0); HEMOGLOBIN 17.4 g/dl (14.0-17.9); LYMPHOCYTES # (AUTO) 3.2 X10'3 (1.1-4.8); LYMPHOCYTES % (AUTO) 24.5 % (21-51); MEAN CORPUSCULAR HEMOGLOBIN 29.1 PG (27.0-31.0); MEAN CORPUSCULAR HGB CONC 34.6 % (33.0-36.5); MEAN CORPUSCULAR VOLUME 84.1 FL (78-98); MEAN PLATELET VOLUME 8.6 FL (7.4-10.4); MONOCYTES % (AUTO) 7.7 % (2-12); NEUTROPHILS # (AUTO) 8.6 X10'3 (1.8-7.7); NEUTROPHILS % (AUTO) 66.6 % (42-75); PLATELET COUNT 253 X10'3 (140-440); RED BLOOD COUNT 5.99 X10'6 (4.70-6.10); RED CELL DISTRIBUTION WIDTH 13.4 % (11.5-14.5); WHITE BLOOD COUNT 12.9 X10'3 (4.5-11.0)
[2017-11-30 19:53] LABS: PARTIAL THROMBOPLASTIN TIME 28 SECONDS (22-32); PROTHROMBIN TIME 10.7 SECONDS (9.0-12.0)
[2017-11-30 20:08] LABS: ALANINE AMINOTRANSFERASE 82 U/L (12-78); ALBUMIN 4.7 G/DL (3.4-5.0); ALBUMIN/GLOBULIN RATIO 1.3 (1.1-1.5); ALKALINE PHOSPHATASE 87 IU/L (46-116); ANION GAP 13 (8-16); ASPARTATE AMINO TRANSFERASE 31 U/L (10-37); BILIRUBIN,TOTAL 1.3 MG/DL (0.1-1.0); BLOOD UREA NITROGEN 14 MG/DL (7-18); BUN/CREATININE RATIO 14.6 (5.4-32.0); CHLORIDE 104 MMOL/L (99-107); CREATININE 0.96 MG/DL (0.60-1.10); GLUCOSE 99 MG/DL (70-104); POTASSIUM 3.7 MMOL/L (3.5-5.1); SODIUM 142 MMOL/L (135-145); TOTAL CARBON DIOXIDE 25.4 MMOL/L (24-32); TOTAL PROTEIN 8.4 G/DL (6.4-8.2); eGFR > 90 ML/MIN
[2017-11-30] MEDS ORDERED: METO50TA17 PO (21:55)
[2017-11-30] MEDS ORDERED: CLIN300C54 PO (21:55)
[2017-11-30 22:04] VITALS: BP 143/98
== END 2017-11-30 22:06 | disposition home or self-care (01) ==
LOC: ER 19:05
DX: R00.0 Tachycardia, unspecified (principal); I10 Essential (primary) hypertension; K08.89 Other specified disorders of teeth and supporting structures; F12.90 Cannabis use, unspecified, uncomplicated; Z86.14 Personal history of Methicillin resistant Staphylococcus aureus infection; Z98.890 Other specified postprocedural states; Z56.0 Unemployment, unspecified; Z88.0 Allergy status to penicillin; Z88.1 Allergy status to other antibiotic agents; Z88.8 Allergy status to other drugs, medicaments and biological substances; Z79.82 Long term (current) use of aspirin; Z79.2 Long term (current) use of antibiotics; Z79.899 Other long term (current) drug therapy
CPT/HCPCS: 36415; 71045; 80053; 84484; 85025; 85610; 85730; 93005; 99285

== ENCOUNTER 2018-02-22 11:12 | Emergency (ER) | payer MEDICAID ==
[~2018-02-22] VITALS: Ht 172.7 cm; Wt 77.5 kg
[~2018-02-22 11:12] MED LIST changes: +METO50TA17 PO
[2018-02-22 12:35] LABS: BASOPHILS # (AUTO) 0.1 X10'3 (0-0.2); BASOPHILS % (AUTO) 0.4 % (0-1); EOSINOPHILS # (AUTO) 0.1 X10'3 (0-0.9); EOSINOPHILS % (AUTO) 0.3 % (0-6); HEMATOCRIT 50.3 % (42.0-52.0); HEMOGLOBIN 17.1 g/dl (14.0-17.9); LYMPHOCYTES # (AUTO) 2.7 X10'3 (1.1-4.8); LYMPHOCYTES % (AUTO) 17.4 % (21-51); MEAN CORPUSCULAR HEMOGLOBIN 29.4 PG (27.0-31.0); MEAN CORPUSCULAR HGB CONC 34.1 % (33.0-36.5); MEAN CORPUSCULAR VOLUME 86.3 FL (78-98); MEAN PLATELET VOLUME 8.2 FL (7.4-10.4); MONOCYTES % (AUTO) 6.5 % (2-12); NEUTROPHILS # (AUTO) 11.9 X10'3 (1.8-7.7); NEUTROPHILS % (AUTO) 75.4 % (42-75); PLATELET COUNT 313 X10'3 (140-440); RED BLOOD COUNT 5.83 X10'6 (4.70-6.10); RED CELL DISTRIBUTION WIDTH 12.5 % (11.5-14.5); WHITE BLOOD COUNT 15.7 X10'3 (4.5-11.0)
[2018-02-22 12:41] LABS: CLARITY,URINE CLEAR (Clear); COLOR,URINE YELLOW (Yellow); GLUCOSE, URINE NEGATIVE (Neg); KETONES,URINE NEGATIVE (Neg); LEUKOCYTE ESTERASE ,URINE NEGATIVE (Neg); NITRITES, URINE NEGATIVE (Neg); OCCULT BLOOD,URINE NEGATIVE (Neg); PROTEIN,URINE NEGATIVE (Neg)
[2018-02-22 12:42] VITALS: BP 133/66
[2018-02-22 12:46] LABS: UA COLLECTION TYPE CLN CATCH MIDSTREAM
[2018-02-22 12:56] LABS: ALANINE AMINOTRANSFERASE 55 U/L (12-78); ALKALINE PHOSPHATASE 85 IU/L (46-116); ANION GAP 9 (8-16); ASPARTATE AMINO TRANSFERASE 17 U/L (10-37); BILIRUBIN,TOTAL 0.8 MG/DL (0.1-1.0); BLOOD UREA NITROGEN 9 MG/DL (7-18); BUN/CREATININE RATIO 10.8 (5.4-32.0); CALCIUM 9.5 MG/DL (8.5-10.1); CHLORIDE 102 MMOL/L (99-107); CREATININE 0.83 MG/DL (0.60-1.10); GLUCOSE 91 MG/DL (70-104); SODIUM 137 MMOL/L (135-145); TOTAL CARBON DIOXIDE 26.3 MMOL/L (24-32); TOTAL PROTEIN 7.9 G/DL (6.4-8.2); eGFR > 90 ML/MIN
[2018-02-24] MEDS ORDERED: SULF1TAB49 PO (01:27)
== END 2018-02-22 13:02 | disposition home or self-care (01) ==
LOC: ER 11:12
DX: J20.9 Acute bronchitis, unspecified (principal); I10 Essential (primary) hypertension; Z86.14 Personal history of Methicillin resistant Staphylococcus aureus infection; F12.90 Cannabis use, unspecified, uncomplicated; F17.210 Nicotine dependence, cigarettes, uncomplicated; Z88.0 Allergy status to penicillin; Z88.1 Allergy status to other antibiotic agents; Z88.8 Allergy status to other drugs, medicaments and biological substances; Z79.82 Long term (current) use of aspirin; Z79.899 Other long term (current) drug therapy; Z56.0 Unemployment, unspecified
CPT/HCPCS: 36415; 71045; 80053; 81003; 84484; 85025; 93005; 99285; 99406

== ENCOUNTER 2018-05-03 21:25 | Emergency (ER) | payer MEDICAID ==
[~2018-05-03] VITALS: Ht 177.8 cm; Wt 72.7 kg
[2018-05-03 21:30] VITALS: BP 119/81
== END 2018-05-03 22:58 | disposition home or self-care (01) ==
LOC: ER 21:26
DX: R00.2 Palpitations (principal); I10 Essential (primary) hypertension; F12.90 Cannabis use, unspecified, uncomplicated; Z56.0 Unemployment, unspecified; Z88.6 Allergy status to analgesic agent; Z88.1 Allergy status to other antibiotic agents; Z88.0 Allergy status to penicillin; Z88.8 Allergy status to other drugs, medicaments and biological substances; Z79.82 Long term (current) use of aspirin
CPT/HCPCS: 93005; 99283

== ENCOUNTER 2018-06-27 21:12 | Emergency (ER) | payer MEDICAID ==
[~2018-06-27] VITALS: Ht 175.3 cm; Wt 74.6 kg
[2018-06-27 21:42] LABS: BASOPHILS # (AUTO) 0.1 X10'3 (0-0.2); EOSINOPHILS # (AUTO) 0.2 X10'3 (0-0.9); EOSINOPHILS % (AUTO) 1.5 % (0-6); HEMATOCRIT 47.7 % (42.0-52.0); HEMOGLOBIN 16.3 g/dl (14.0-17.9); LYMPHOCYTES # (AUTO) 3.8 X10'3 (1.1-4.8); MEAN CORPUSCULAR HEMOGLOBIN 29.4 PG (27.0-31.0); MEAN CORPUSCULAR HGB CONC 34.1 % (33.0-36.5); MEAN CORPUSCULAR VOLUME 86.3 FL (78-98); MEAN PLATELET VOLUME 8.5 FL (7.4-10.4); MONOCYTES # (AUTO) 0.6 X10'3 (0-0.9); MONOCYTES % (AUTO) 5.1 % (2-12); NEUTROPHILS # (AUTO) 6.2 X10'3 (1.8-7.7); NEUTROPHILS % (AUTO) 57.4 % (42-75); PLATELET COUNT 272 X10'3 (140-440); RED BLOOD COUNT 5.52 X10'6 (4.70-6.10); RED CELL DISTRIBUTION WIDTH 12.5 % (11.5-14.5); WHITE BLOOD COUNT 10.8 X10'3 (4.5-11.0)
[2018-06-27 21:56] LABS: ALANINE AMINOTRANSFERASE 41 U/L (12-78); ALBUMIN 4.2 G/DL (3.4-5.0); ALBUMIN/GLOBULIN RATIO 1.2 (1.1-1.5); ALKALINE PHOSPHATASE 78 IU/L (46-116); ANION GAP 9 (8-16); ASPARTATE AMINO TRANSFERASE 18 U/L (10-37); BLOOD UREA NITROGEN 14 MG/DL (7-18); BUN/CREATININE RATIO 11.9 (5.4-32.0); CALCIUM 8.9 MG/DL (8.5-10.1); CHLORIDE 103 MMOL/L (99-107); CREATININE 1.18 MG/DL (0.60-1.10); GLUCOSE 97 MG/DL (70-104); POTASSIUM 3.5 MMOL/L (3.5-5.1); SODIUM 141 MMOL/L (135-145); TOTAL CARBON DIOXIDE 28.9 MMOL/L (24-32); TOTAL PROTEIN 7.6 G/DL (6.4-8.2); eGFR 75 ML/MIN
[2018-06-27 22:37] VITALS: BP 124/52
== END 2018-06-27 22:46 | disposition home or self-care (01) ==
LOC: ER 21:13
DX: R00.2 Palpitations (principal); R00.8 Other abnormalities of heart beat; I10 Essential (primary) hypertension; F12.90 Cannabis use, unspecified, uncomplicated; Z56.0 Unemployment, unspecified; Z88.8 Allergy status to other drugs, medicaments and biological substances; Z88.0 Allergy status to penicillin; Z88.1 Allergy status to other antibiotic agents; Z79.82 Long term (current) use of aspirin; Z79.899 Other long term (current) drug therapy
CPT/HCPCS: 36415; 71045; 80053; 83880; 84484; 85025; 93005; 99284

== ENCOUNTER → 2018-08-09 | Emergency (ER) | payer MEDICAID ==
[~2018-08-09] VITALS: Ht 180.3 cm; Wt 75.0 kg
--- NOTE | 2018-08-09 19:24 | NUR ---
VERBALIZED TO ORDER EKG AND WAIT FOR FURTHER WORK UP TO BE ORDERED AFTER EKG IS READ
[2018-08-09 19:26] VITALS: BP 127/79
== END | disposition left against medical advice (07) ==
LOC: ER 19:21
DX: R07.89 Other chest pain (principal); Z53.21 Procedure and treatment not carried out due to patient leaving prior to being seen by health care provider
CPT/HCPCS: 93005

== ENCOUNTER 2018-09-07 11:30 | Emergency (ER) | payer MEDICAID ==
[~2018-09-07] VITALS: Ht 180.3 cm; Wt 75.0 kg
[2018-09-07] MEDS ORDERED: aspirin 81mg tab.chew PO ONE (12:00)
[2018-09-07] MEDS ORDERED: ALPR2TAB2 PO (12:09)
[2018-09-07] MEDS ORDERED: METO-384 PO (12:13)
[2018-09-07] MEDS ORDERED: METO25TA6 PO (12:14)
[2018-09-07 12:20] LABS: BASOPHILS # (AUTO) 0.1 X10'3 (0-0.2); BASOPHILS % (AUTO) 0.9 % (0-1); EOSINOPHILS # (AUTO) 0.1 X10'3 (0-0.9); EOSINOPHILS % (AUTO) 1.5 % (0-6); HEMATOCRIT 48.2 % (42.0-52.0); HEMOGLOBIN 16.6 g/dl (14.0-17.9); LYMPHOCYTES # (AUTO) 3.1 X10'3 (1.1-4.8); LYMPHOCYTES % (AUTO) 35.7 % (21-51); MEAN CORPUSCULAR HEMOGLOBIN 29.8 PG (27.0-31.0); MEAN CORPUSCULAR HGB CONC 34.5 g/dL (33.0-36.5); MEAN CORPUSCULAR VOLUME 86.4 FL (78-98); MEAN PLATELET VOLUME 8.4 FL (7.4-10.4); MONOCYTES # (AUTO) 0.8 X10'3 (0-0.9); MONOCYTES % (AUTO) 9.7 % (2-12); NEUTROPHILS # (AUTO) 4.5 X10'3 (1.8-7.7); NEUTROPHILS % (AUTO) 52.2 % (42-75); PLATELET COUNT 247 X10'3 (140-440); RED BLOOD COUNT 5.58 X10'6 (4.70-6.10); RED CELL DISTRIBUTION WIDTH 13.6 % (11.5-14.5); WHITE BLOOD COUNT 8.6 X10'3 (4.5-11.0)
[2018-09-07 12:36] LABS: ALANINE AMINOTRANSFERASE 58 U/L (12-78); ALBUMIN/GLOBULIN RATIO 1.1 (1.1-1.5); ALKALINE PHOSPHATASE 78 IU/L (46-116); ANION GAP 8 (8-16); ASPARTATE AMINO TRANSFERASE 19 U/L (10-37); BLOOD UREA NITROGEN 9 MG/DL (7-18); BUN/CREATININE RATIO 10.6 (5.4-32.0); CALCIUM 9.4 MG/DL (8.5-10.1); CHLORIDE 104 MMOL/L (99-107); CREATININE 0.85 MG/DL (0.60-1.10); GLUCOSE 83 MG/DL (70-104); POTASSIUM 3.5 MMOL/L (3.5-5.1); SODIUM 141 MMOL/L (135-145); TOTAL CARBON DIOXIDE 29.5 MMOL/L (24-32); TOTAL PROTEIN 7.7 G/DL (6.4-8.2); eGFR > 90 ML/MIN
[2018-09-07] MEDS ORDERED: potassium Cl 20 mEq SR tablet PO STA (12:37)
[2018-09-07] MEDS ORDERED: normal saline 1000ML IV soln IVB ONE (12:40)
[2018-09-07 12:43] LABS: MAGNESIUM 1.7 MG/DL (1.5-2.4)
--- NOTE | 2018-09-07 13:04 | NUR ---
INTERGATED PACE MAKER PER DR. ALATORRE WITH BEDSIDE MACHINE.
--- NOTE | 2018-09-07 13:12 | NUR ---
CALLED [facility] TRANSMISSION. TAKES 20-30MIN TO TRANSMIT. THEN WE GET A FAX.
[2018-09-07] MEDS ORDERED: DOXE25CA3 PO (13:21)
--- NOTE | 2018-09-07 13:45 | NUR ---
MO FROM [facility] AT BEDSIDE WITH PTJoseph
[2018-09-07 14:16] VITALS: BP 143/84
== END 2018-09-07 14:10 | disposition home or self-care (01) ==
LOC: ER 11:31
DX: R42 Dizziness and giddiness (principal); R00.2 Palpitations; R07.89 Other chest pain; I11.0 Hypertensive heart disease with heart failure; F17.210 Nicotine dependence, cigarettes, uncomplicated; F12.90 Cannabis use, unspecified, uncomplicated; Z56.0 Unemployment, unspecified; Z88.0 Allergy status to penicillin; Z88.8 Allergy status to other drugs, medicaments and biological substances; Z88.6 Allergy status to analgesic agent; Z79.82 Long term (current) use of aspirin; Z79.899 Other long term (current) drug therapy; Z95.0 Presence of cardiac pacemaker
CPT/HCPCS: 36415; 71045; 80053; 83735; 83880; 84484; 85025; 93005; 99284; J7030

== ENCOUNTER 2018-10-03 18:35 | Emergency (ER) | payer MEDICAID ==
[~2018-10-03] VITALS: Ht 180.3 cm; Wt 75.0 kg
[~2018-10-03 18:35] MED LIST changes: -ALBU8.5H8 IH; +ALPR2TAB2 PO; -ASPI81TA52 PO; -ATEN25TA PO; +DOXE25CA3 PO; -LOPE-155 PO; +METO25TA6 PO; -METO50TA17 PO; -NICO-687 TD; -QUET50TA PO
[2018-10-03 18:46] VITALS: BP 168/74
[2018-10-03 19:21] LABS: BASOPHILS # (AUTO) 0.1 X10'3 (0-0.2); BASOPHILS % (AUTO) 0.9 % (0-1); EOSINOPHILS # (AUTO) 0.1 X10'3 (0-0.9); EOSINOPHILS % (AUTO) 1.1 % (0-6); HEMATOCRIT 48.8 % (42.0-52.0); HEMOGLOBIN 16.6 g/dl (14.0-17.9); LYMPHOCYTES # (AUTO) 5.2 X10'3 (1.1-4.8); LYMPHOCYTES % (AUTO) 39.9 % (21-51); MEAN CORPUSCULAR HEMOGLOBIN 29.9 PG (27.0-31.0); MEAN CORPUSCULAR HGB CONC 34.1 g/dL (33.0-36.5); MEAN CORPUSCULAR VOLUME 87.6 FL (78-98); MEAN PLATELET VOLUME 8.8 FL (7.4-10.4); MONOCYTES % (AUTO) 7.9 % (2-12); NEUTROPHILS # (AUTO) 6.5 X10'3 (1.8-7.7); NEUTROPHILS % (AUTO) 50.2 % (42-75); PLATELET COUNT 262 X10'3 (140-440); RED BLOOD COUNT 5.57 X10'6 (4.70-6.10); RED CELL DISTRIBUTION WIDTH 13.4 % (11.5-14.5)
[2018-10-03 19:33] LABS: ANION GAP 11 (8-16); CHLORIDE 102 MMOL/L (99-107); GLUCOSE 103 MG/DL (70-104); POTASSIUM 3.7 MMOL/L (3.5-5.1); SODIUM 141 MMOL/L (135-145); TOTAL CARBON DIOXIDE 27.8 MMOL/L (24-32)
[2018-10-03 19:34] LABS: ALANINE AMINOTRANSFERASE 51 U/L (12-78); ALBUMIN 4.4 G/DL (3.4-5.0); ALBUMIN/GLOBULIN RATIO 1.3 (1.1-1.5); ALKALINE PHOSPHATASE 88 IU/L (46-116); ASPARTATE AMINO TRANSFERASE 22 U/L (10-37); BILIRUBIN,TOTAL 0.5 MG/DL (0.1-1.0); BLOOD UREA NITROGEN 9 MG/DL (7-18); BUN/CREATININE RATIO 9.5 (5.4-32.0); CALCIUM 9.5 MG/DL (8.5-10.1); CREATININE 0.95 MG/DL (0.60-1.10); TOTAL PROTEIN 7.9 G/DL (6.4-8.2); eGFR > 90 ML/MIN
[2018-10-03 19:42] LABS: PARTIAL THROMBOPLASTIN TIME 27 SECONDS (22-32); PROTHROMBIN TIME 10.2 SECONDS (9.0-12.0)
--- NOTE | 2018-10-03 19:46 | NUR ---
Pt shaking his right leg, and asking "how did I get here." He is alert and talking to me. He appears to NOT be having a seizure.
[2018-10-03] MEDS ORDERED: acetaminophen 325mg tablet PO ONE (21:20)
--- NOTE | 2018-10-03 21:32 | NUR ---
wants his pacemaker interogated. [facility] call center called and they are going to page out the regional person that does this and they will get back to me on an ETA. Pt made aware. Gave him some tylenol for generalized chest wall discomfort.
--- NOTE | 2018-10-03 22:41 | NUR ---
[facility] and the interogator has not showed up yet. Abimael says he is tired of waiting and thinking about just leaving.
--- NOTE | 2018-10-03 22:43 | NUR ---
Yaya from [facility] called, doing an interogation now.
== END 2018-10-03 23:03 | disposition home or self-care (01) ==
LOC: ER 18:36
DX: R07.89 Other chest pain (principal); I49.9 Cardiac arrhythmia, unspecified; I10 Essential (primary) hypertension; F12.90 Cannabis use, unspecified, uncomplicated; Z86.14 Personal history of Methicillin resistant Staphylococcus aureus infection; Z98.890 Other specified postprocedural states; Z56.0 Unemployment, unspecified; Z88.0 Allergy status to penicillin; Z88.1 Allergy status to other antibiotic agents; Z88.8 Allergy status to other drugs, medicaments and biological substances; Z79.899 Other long term (current) drug therapy
CPT/HCPCS: 36415; 71045; 80053; 84484; 85025; 85610; 85730; 93005; 99284

== ENCOUNTER 2018-11-25 16:29 | Emergency (ER) | payer MEDICAID ==
[~2018-11-25] VITALS: Ht 180.3 cm; Wt 77.3 kg
[2018-11-25 17:23] VITALS: BP 131/69
== END 2018-11-25 17:25 | disposition home or self-care (01) ==
LOC: ER 16:30
DX: R07.89 Other chest pain (principal); I10 Essential (primary) hypertension; F12.90 Cannabis use, unspecified, uncomplicated; Z56.0 Unemployment, unspecified; Z95.0 Presence of cardiac pacemaker; Z88.8 Allergy status to other drugs, medicaments and biological substances; Z88.0 Allergy status to penicillin; Z88.1 Allergy status to other antibiotic agents; Z88.5 Allergy status to narcotic agent
CPT/HCPCS: 93005; 99283

== ENCOUNTER 2018-12-04 22:21 | Emergency (ER) | payer MEDICAID ==
[~2018-12-04] VITALS: Ht 175.3 cm; Wt 72.0 kg
[2018-12-04] MEDS ORDERED: ALPRAZolam 0.5mg tablet PO ONE (23:15)
[2018-12-04] MEDS ORDERED: ALPR2TAB2 PO (23:25)
[2018-12-04 23:47] VITALS: BP 107/66
== END 2018-12-04 23:49 | disposition home or self-care (01) ==
LOC: ER 22:22
DX: F11.23 Opioid dependence with withdrawal (principal); G40.802 Other epilepsy, not intractable, without status epilepticus; R07.89 Other chest pain; I49.9 Cardiac arrhythmia, unspecified; I10 Essential (primary) hypertension; F41.9 Anxiety disorder, unspecified; F32.9 Major depressive disorder, single episode, unspecified; F20.9 Schizophrenia, unspecified; F12.90 Cannabis use, unspecified, uncomplicated; Z86.14 Personal history of Methicillin resistant Staphylococcus aureus infection; Z95.0 Presence of cardiac pacemaker; Z98.890 Other specified postprocedural states; Z56.0 Unemployment, unspecified; Z88.0 Allergy status to penicillin; Z88.1 Allergy status to other antibiotic agents; Z88.8 Allergy status to other drugs, medicaments and biological substances; Z79.899 Other long term (current) drug therapy
CPT/HCPCS: 93005; 99283

== ENCOUNTER 2018-12-26 19:10 | Emergency (ER) | payer MEDICAID ==
[~2018-12-26] VITALS: Ht 175.3 cm; Wt 72.7 kg
[~2018-12-26 19:10] MED LIST changes: -DOXE25CA3 PO; +DOXE50CA4 PO; +KEP500T PO; -METO25TA6 PO
[2018-12-26 20:01] LABS: BASOPHILS # (AUTO) 0.1 X10'3 (0-0.2); BASOPHILS % (AUTO) 0.5 % (0-1); EOSINOPHILS # (AUTO) 0.1 X10'3 (0-0.9); EOSINOPHILS % (AUTO) 0.9 % (0-6); HEMATOCRIT 43.2 % (42.0-52.0); HEMOGLOBIN 14.6 g/dl (14.0-17.9); LYMPHOCYTES # (AUTO) 3.1 X10'3 (1.1-4.8); LYMPHOCYTES % (AUTO) 27.6 % (21-51); MEAN CORPUSCULAR HEMOGLOBIN 29.7 PG (27.0-31.0); MEAN CORPUSCULAR HGB CONC 33.8 g/dL (33.0-36.5); MEAN CORPUSCULAR VOLUME 87.8 FL (78-98); MEAN PLATELET VOLUME 8.5 FL (7.4-10.4); MONOCYTES # (AUTO) 0.8 X10'3 (0-0.9); MONOCYTES % (AUTO) 6.8 % (2-12); NEUTROPHILS # (AUTO) 7.3 X10'3 (1.8-7.7); NEUTROPHILS % (AUTO) 64.2 % (42-75); PLATELET COUNT 237 X10'3 (140-440); RED BLOOD COUNT 4.92 X10'6 (4.70-6.10); RED CELL DISTRIBUTION WIDTH 12.8 % (11.5-14.5); WHITE BLOOD COUNT 11.4 X10'3 (4.5-11.0)
[2018-12-26 20:03] LABS: ALANINE AMINOTRANSFERASE 37 U/L (12-78); ALBUMIN 3.7 G/DL (3.4-5.0); ALBUMIN/GLOBULIN RATIO 1.2 (1.1-1.5); ALKALINE PHOSPHATASE 75 IU/L (46-116); ANION GAP 9 (8-16); ASPARTATE AMINO TRANSFERASE 14 U/L (10-37); BILIRUBIN,TOTAL 0.7 MG/DL (0.1-1.0); BLOOD UREA NITROGEN 11 MG/DL (7-18); BUN/CREATININE RATIO 11.7 (5.4-32.0); CALCIUM 8.2 MG/DL (8.5-10.1); CHLORIDE 104 MMOL/L (99-107); CREATININE 0.94 MG/DL (0.60-1.10); GLUCOSE 140 MG/DL (70-104); MAGNESIUM 1.8 MG/DL (1.5-2.4); POTASSIUM 3.2 MMOL/L (3.5-5.1); SODIUM 140 MMOL/L (135-145); TOTAL PROTEIN 6.9 G/DL (6.4-8.2); eGFR > 90 ML/MIN
[2018-12-26] MEDS ORDERED: HYDROcodone/acetaminophen 5mg/325mg tablet PO ONE (20:15)
[2018-12-26] MEDS ORDERED: BACDS PO (21:15)
[2018-12-26] MEDS ORDERED: sulfamethoxazole/trimethoprim DS (800/160mg) tablet PO ONE (21:15)
[2018-12-26 22:39] VITALS: BP 128/69
== END 2018-12-26 21:15 | disposition home or self-care (01) ==
LOC: ER 19:12
DX: S00.93XA Contusion of unspecified part of head, initial encounter (principal); M25.512 Pain in left shoulder; R68.84 Jaw pain; R55 Syncope and collapse; I48.91 Unspecified atrial fibrillation; I10 Essential (primary) hypertension; Z86.14 Personal history of Methicillin resistant Staphylococcus aureus infection; F41.9 Anxiety disorder, unspecified; F32.9 Major depressive disorder, single episode, unspecified; Z95.0 Presence of cardiac pacemaker; F17.210 Nicotine dependence, cigarettes, uncomplicated; F12.90 Cannabis use, unspecified, uncomplicated; Z88.0 Allergy status to penicillin; Z88.5 Allergy status to narcotic agent; Z88.1 Allergy status to other antibiotic agents; Z88.8 Allergy status to other drugs, medicaments and biological substances; Z79.899 Other long term (current) drug therapy; Z56.0 Unemployment, unspecified; W19.XXXA Unspecified fall, initial encounter; Y93.89 Activity, other specified; Y92.89 Other specified places as the place of occurrence of the external cause; Y99.8 Other external cause status
CPT/HCPCS: 36415; 70450; 70486; 71045; 80053; 83735; 85025; 93005; 99284

== ENCOUNTER 2018-12-30 15:35 | Emergency (ER) | payer MEDICAID ==
[~2018-12-30] VITALS: Ht 175.3 cm; Wt 70.9 kg
[~2018-12-30 15:35] MED LIST changes: +BACDS PO
[2018-12-30 15:43] VITALS: BP 115/83
--- NOTE | 2018-12-30 15:55 | NUR ---
Spoke to EDMD regarding pt history. States that EKG is all that is needed at this time.
--- NOTE | 2018-12-30 15:55 | NUR ---
Pt stated to registration that he is "just going to go to [facility]". She attempted to have pt wait to speak with myself or MD, but pt immediately left the lobby.
== END 2018-12-30 15:45 | disposition left against medical advice (07) ==
LOC: ER 15:36
DX: L02.412 Cutaneous abscess of left axilla (principal); I48.91 Unspecified atrial fibrillation; Z53.21 Procedure and treatment not carried out due to patient leaving prior to being seen by health care provider; Z95.0 Presence of cardiac pacemaker; Z79.899 Other long term (current) drug therapy
CPT/HCPCS: 93005

== ENCOUNTER 2019-02-13 21:57 | Emergency (ER) | payer MEDICAID ==
[~2019-02-13] VITALS: Ht 175.3 cm; Wt 70.5 kg
[~2019-02-13 21:57] MED LIST changes: -BACDS PO
[2019-02-13] MEDS ORDERED: aspirin 81mg tab.chew PO ONE (22:35)
[2019-02-13 22:45] LABS: BASOPHILS # (AUTO) 0.1 X10'3 (0-0.2); BASOPHILS % (AUTO) 0.8 % (0-1); EOSINOPHILS # (AUTO) 0.1 X10'3 (0-0.9); EOSINOPHILS % (AUTO) 0.5 % (0-6); HEMATOCRIT 48.3 % (42.0-52.0); HEMOGLOBIN 16.4 g/dl (14.0-17.9); LYMPHOCYTES # (AUTO) 3.8 X10'3 (1.1-4.8); LYMPHOCYTES % (AUTO) 29.3 % (21-51); MEAN CORPUSCULAR HEMOGLOBIN 29.7 PG (27.0-31.0); MEAN CORPUSCULAR HGB CONC 33.9 g/dL (33.0-36.5); MEAN CORPUSCULAR VOLUME 87.7 FL (78-98); MEAN PLATELET VOLUME 8.2 FL (7.4-10.4); MONOCYTES % (AUTO) 7.7 % (2-12); NEUTROPHILS % (AUTO) 61.7 % (42-75); PLATELET COUNT 260 X10'3 (140-440); RED BLOOD COUNT 5.51 X10'6 (4.70-6.10); RED CELL DISTRIBUTION WIDTH 13.2 % (11.5-14.5)
[2019-02-13 22:56] LABS: PARTIAL THROMBOPLASTIN TIME 29 SECONDS (22-32)
[2019-02-13] MEDS ORDERED: HYDR-4353 PO (22:58)
[2019-02-13 23:09] LABS: ALANINE AMINOTRANSFERASE 59 U/L (12-78); ALBUMIN 4.5 G/DL (3.4-5.0); ALBUMIN/GLOBULIN RATIO 1.3 (1.1-1.5); ALKALINE PHOSPHATASE 74 IU/L (46-116); ANION GAP 16 (8-16); ASPARTATE AMINO TRANSFERASE 21 U/L (10-37); BILIRUBIN,TOTAL 1.8 MG/DL (0.1-1.0); BLOOD UREA NITROGEN 11 MG/DL (7-18); BUN/CREATININE RATIO 11.3 (5.4-32.0); CALCIUM 9.6 MG/DL (8.5-10.1); CHLORIDE 102 MMOL/L (99-107); CREATININE 0.97 MG/DL (0.60-1.10); GLUCOSE 109 MG/DL (70-104); POTASSIUM 3.3 MMOL/L (3.5-5.1); SODIUM 138 MMOL/L (135-145); TOTAL CARBON DIOXIDE 20.5 MMOL/L (24-32); eGFR > 90 ML/MIN
[2019-02-13] MEDS ORDERED: ondansetron/PF 4mg/2ml inj IV ONE (23:40)
[2019-02-13] MEDS ORDERED: normal saline 1000ML IV soln IVB ONE (23:40)
[2019-02-13] MEDS ORDERED: iohexol 350MG/ML 100ml bottle IV ONE (23:48)
[2019-02-14] MEDS ORDERED: ketorolac trometh. 30mg/ml inj. IV ONE (00:30)
[2019-02-14 01:13] VITALS: BP 120/74
== END 2019-02-14 01:16 | disposition home or self-care (01) ==
LOC: ER 21:57
DX: G40.909 Epilepsy, unspecified, not intractable, without status epilepticus (principal); R55 Syncope and collapse; I10 Essential (primary) hypertension; I48.91 Unspecified atrial fibrillation; F32.9 Major depressive disorder, single episode, unspecified; F41.9 Anxiety disorder, unspecified; F20.9 Schizophrenia, unspecified; F12.90 Cannabis use, unspecified, uncomplicated; Z98.890 Other specified postprocedural states; Z95.0 Presence of cardiac pacemaker; Z56.0 Unemployment, unspecified; Z88.6 Allergy status to analgesic agent; Z88.1 Allergy status to other antibiotic agents; Z88.0 Allergy status to penicillin; Z88.8 Allergy status to other drugs, medicaments and biological substances
CPT/HCPCS: 36415; 71045; 71275; 80053; 84484; 85025; 85610; 85730; 93005; 96361; 96374; 96375; 99284; J1885; J2405; J7030; Q9967

== ENCOUNTER 2019-03-25 20:56 | Emergency (ER) | payer MEDICAID ==
[~2019-03-25] VITALS: Ht 175.3 cm; Wt 72.0 kg
[~2019-03-25 20:56] MED LIST changes: -DOXE50CA4 PO; +HYDR-4353 PO
[2019-03-25 21:35] LABS: BASOPHILS # (AUTO) 0.1 X10'3 (0-0.2); BASOPHILS % (AUTO) 0.7 % (0-1); EOSINOPHILS # (AUTO) 0.1 X10'3 (0-0.9); EOSINOPHILS % (AUTO) 0.6 % (0-6); HEMATOCRIT 45.6 % (42.0-52.0); HEMOGLOBIN 15.5 g/dl (14.0-17.9); LYMPHOCYTES # (AUTO) 4.6 X10'3 (1.1-4.8); LYMPHOCYTES % (AUTO) 36.5 % (21-51); MEAN CORPUSCULAR HEMOGLOBIN 30.1 PG (27.0-31.0); MEAN CORPUSCULAR HGB CONC 33.9 g/dL (33.0-36.5); MEAN PLATELET VOLUME 8.6 FL (7.4-10.4); MONOCYTES % (AUTO) 7.7 % (2-12); NEUTROPHILS # (AUTO) 6.8 X10'3 (1.8-7.7); NEUTROPHILS % (AUTO) 54.5 % (42-75); PLATELET COUNT 257 X10'3 (140-440); RED BLOOD COUNT 5.13 X10'6 (4.70-6.10); RED CELL DISTRIBUTION WIDTH 13.4 % (11.5-14.5); WHITE BLOOD COUNT 12.5 X10'3 (4.5-11.0)
[2019-03-25 22:02] LABS: PARTIAL THROMBOPLASTIN TIME 27 SECONDS (22-32)
[2019-03-25] MEDS ORDERED: ketorolac tromethamine 15mg/ml inj. IM ONE (22:20)
[2019-03-25] MEDS ORDERED: acetaminophen 325mg tablet PO ONE (22:25)
[2019-03-25 22:37] LABS: ALANINE AMINOTRANSFERASE 36 U/L (12-78); ALBUMIN 4.5 G/DL (3.4-5.0); ALBUMIN/GLOBULIN RATIO 1.3 (1.1-1.5); ALKALINE PHOSPHATASE 73 IU/L (46-116); ANION GAP 10 (8-16); ASPARTATE AMINO TRANSFERASE 19 U/L (10-37); BILIRUBIN,TOTAL 1.1 MG/DL (0.1-1.0); BLOOD UREA NITROGEN 8 MG/DL (7-18); BUN/CREATININE RATIO 8.2 (5.4-32.0); CALCIUM 9.3 MG/DL (8.5-10.1); CHLORIDE 106 MMOL/L (99-107); CREATININE 0.97 MG/DL (0.60-1.10); GLUCOSE 88 MG/DL (70-104); POTASSIUM 3.6 MMOL/L (3.5-5.1); SODIUM 143 MMOL/L (135-145); TOTAL CARBON DIOXIDE 27.1 MMOL/L (24-32); eGFR > 90 ML/MIN
[2019-03-25 23:06] VITALS: BP 118/60
== END 2019-03-25 23:05 | disposition home or self-care (01) ==
LOC: ER 20:56
DX: R55 Syncope and collapse (principal); R07.89 Other chest pain; I48.91 Unspecified atrial fibrillation; I10 Essential (primary) hypertension; F12.90 Cannabis use, unspecified, uncomplicated; F17.200 Nicotine dependence, unspecified, uncomplicated; Z56.0 Unemployment, unspecified; Z98.890 Other specified postprocedural states; Z95.0 Presence of cardiac pacemaker; Z86.14 Personal history of Methicillin resistant Staphylococcus aureus infection; Z88.0 Allergy status to penicillin; Z88.1 Allergy status to other antibiotic agents; Z88.6 Allergy status to analgesic agent
CPT/HCPCS: 36415; 71046; 80053; 84484; 85025; 85610; 85730; 93005; 99284; J1885

== ENCOUNTER 2019-06-02 18:38 | Emergency (ER) | payer MEDICAID ==
[~2019-06-02] VITALS: Ht 175.3 cm; Wt 72.7 kg
[2019-06-02 19:06] VITALS: BP 106/77
[2019-06-02] MEDS ORDERED: HYDR-3965 PO (21:12)
== END 2019-06-02 21:25 | disposition home or self-care (01) ==
LOC: ER 18:41
DX: S92.352A Displaced fracture of fifth metatarsal bone, left foot, initial encounter for closed fracture (principal); I48.91 Unspecified atrial fibrillation; I10 Essential (primary) hypertension; F41.9 Anxiety disorder, unspecified; F32.9 Major depressive disorder, single episode, unspecified; F20.9 Schizophrenia, unspecified; F12.90 Cannabis use, unspecified, uncomplicated; Z86.14 Personal history of Methicillin resistant Staphylococcus aureus infection; Z95.0 Presence of cardiac pacemaker; Z98.890 Other specified postprocedural states; Z88.0 Allergy status to penicillin; Z88.8 Allergy status to other drugs, medicaments and biological substances; Z79.899 Other long term (current) drug therapy; W51.XXXA Accidental striking against or bumped into by another person, initial encounter; Y93.89 Activity, other specified; Y92.89 Other specified places as the place of occurrence of the external cause; Y99.8 Other external cause status
CPT/HCPCS: 29515; 73630; 99284

== ENCOUNTER 2019-06-20 20:59 | Emergency (ER) | payer MEDICAID ==
[~2019-06-20] VITALS: Ht 175.3 cm; Wt 71.0 kg
[2019-06-20 21:42] LABS: BASOPHILS # (AUTO) 0.2 X10'3 (0-0.2); BASOPHILS % (AUTO) 1.2 % (0-1); EOSINOPHILS # (AUTO) 0.1 X10'3 (0-0.9); HEMATOCRIT 44.3 % (42.0-52.0); HEMOGLOBIN 15.2 g/dl (14.0-17.9); LYMPHOCYTES # (AUTO) 3.8 X10'3 (1.1-4.8); LYMPHOCYTES % (AUTO) 27.9 % (21-51); MEAN CORPUSCULAR HGB CONC 34.2 g/dL (33.0-36.5); MEAN CORPUSCULAR VOLUME 87.5 FL (78-98); MEAN PLATELET VOLUME 8.4 FL (7.4-10.4); NEUTROPHILS # (AUTO) 8.7 X10'3 (1.8-7.7); NEUTROPHILS % (AUTO) 62.9 % (42-75); PLATELET COUNT 270 X10'3 (140-440); RED BLOOD COUNT 5.06 X10'6 (4.70-6.10); RED CELL DISTRIBUTION WIDTH 13.1 % (11.5-14.5); WHITE BLOOD COUNT 13.8 X10'3 (4.5-11.0)
[2019-06-20 21:58] LABS: ALANINE AMINOTRANSFERASE 27 U/L (12-78); ALBUMIN 4.3 G/DL (3.4-5.0); ALBUMIN/GLOBULIN RATIO 1.3 (1.1-1.5); ALKALINE PHOSPHATASE 77 IU/L (46-116); ANION GAP 8 (8-16); ASPARTATE AMINO TRANSFERASE 15 U/L (10-37); BILIRUBIN,TOTAL 0.6 MG/DL (0.1-1.0); BLOOD UREA NITROGEN 14 MG/DL (7-18); BUN/CREATININE RATIO 14.3 (5.4-32.0); CHLORIDE 106 MMOL/L (99-107); CREATININE 0.98 MG/DL (0.60-1.10); GLUCOSE 97 MG/DL (70-104); POTASSIUM 3.8 MMOL/L (3.5-5.1); SODIUM 144 MMOL/L (135-145); TOTAL CARBON DIOXIDE 29.8 MMOL/L (24-32); TOTAL PROTEIN 7.7 G/DL (6.4-8.2); eGFR > 90 ML/MIN
--- NOTE | 2019-06-20 22:16 | NUR ---
Pacemaker interrogated using [facility] device.
[2019-06-20 23:14] VITALS: BP 117/75
== END 2019-06-20 23:15 | disposition home or self-care (01) ==
LOC: ER 21:00
DX: R07.89 Other chest pain (principal); R55 Syncope and collapse; R10.13 Epigastric pain; I48.91 Unspecified atrial fibrillation; I10 Essential (primary) hypertension; F17.200 Nicotine dependence, unspecified, uncomplicated; F12.90 Cannabis use, unspecified, uncomplicated; Z95.0 Presence of cardiac pacemaker; Z98.890 Other specified postprocedural states; Z56.0 Unemployment, unspecified; Z86.14 Personal history of Methicillin resistant Staphylococcus aureus infection; Z88.6 Allergy status to analgesic agent; Z88.0 Allergy status to penicillin; Z88.1 Allergy status to other antibiotic agents
CPT/HCPCS: 36415; 71045; 80053; 84484; 85025; 93005; 99284

== ENCOUNTER 2019-07-11 20:18 | Emergency (ER) | payer MEDICAID ==
[~2019-07-11] VITALS: Ht 175.3 cm; Wt 75.0 kg
[2019-07-11 20:20] VITALS: BP 138/83
[2019-07-11 21:04] LABS: BASOPHILS # (AUTO) 0.1 X10'3 (0-0.2); BASOPHILS % (AUTO) 0.5 % (0-1); EOSINOPHILS # (AUTO) 0.1 X10'3 (0-0.9); EOSINOPHILS % (AUTO) 1.1 % (0-6); HEMATOCRIT 44.3 % (42.0-52.0); LYMPHOCYTES # (AUTO) 3.3 X10'3 (1.1-4.8); LYMPHOCYTES % (AUTO) 29.2 % (21-51); MEAN CORPUSCULAR HEMOGLOBIN 29.7 PG (27.0-31.0); MEAN CORPUSCULAR HGB CONC 33.8 g/dL (33.0-36.5); MEAN CORPUSCULAR VOLUME 88.1 FL (78-98); MEAN PLATELET VOLUME 8.8 FL (7.4-10.4); MONOCYTES # (AUTO) 0.8 X10'3 (0-0.9); MONOCYTES % (AUTO) 7.3 % (2-12); NEUTROPHILS # (AUTO) 7.1 X10'3 (1.8-7.7); NEUTROPHILS % (AUTO) 61.9 % (42-75); PLATELET COUNT 265 X10'3 (140-440); RED BLOOD COUNT 5.03 X10'6 (4.70-6.10); RED CELL DISTRIBUTION WIDTH 12.8 % (11.5-14.5); WHITE BLOOD COUNT 11.4 X10'3 (4.5-11.0)
[2019-07-11 21:18] LABS: ALANINE AMINOTRANSFERASE 26 U/L (12-78); ALBUMIN 4.1 G/DL (3.4-5.0); ALBUMIN/GLOBULIN RATIO 1.3 (1.1-1.5); ALKALINE PHOSPHATASE 80 IU/L (46-116); ANION GAP 10 (8-16); ASPARTATE AMINO TRANSFERASE 14 U/L (10-37); BILIRUBIN,TOTAL 0.7 MG/DL (0.1-1.0); BLOOD UREA NITROGEN 9 MG/DL (7-18); BUN/CREATININE RATIO 9.7 (5.4-32.0); CALCIUM 8.7 MG/DL (8.5-10.1); CHLORIDE 106 MMOL/L (99-107); CREATININE 0.93 MG/DL (0.60-1.10); GLUCOSE 108 MG/DL (70-104); POTASSIUM 3.7 MMOL/L (3.5-5.1); SODIUM 142 MMOL/L (135-145); TOTAL CARBON DIOXIDE 25.9 MMOL/L (24-32); TOTAL PROTEIN 7.3 G/DL (6.4-8.2); eGFR > 90 ML/MIN
== END 2019-07-11 22:15 | disposition left against medical advice (07) ==
LOC: ER 20:19
DX: R55 Syncope and collapse (principal); Z53.21 Procedure and treatment not carried out due to patient leaving prior to being seen by health care provider
CPT/HCPCS: 36415; 71045; 80053; 84484; 85025; 93005

== ENCOUNTER 2019-07-29 10:08 | Emergency (ER) | payer MEDICAID ==
[~2019-07-29] VITALS: Ht 180.3 cm; Wt 78.0 kg
[2019-07-29 10:12] VITALS: BP 98/63
== END 2019-07-29 10:44 | disposition home or self-care (01) ==
LOC: ER 10:09
DX: Z02.79 Encounter for issue of other medical certificate (principal); I48.91 Unspecified atrial fibrillation; I10 Essential (primary) hypertension; F12.90 Cannabis use, unspecified, uncomplicated; F17.210 Nicotine dependence, cigarettes, uncomplicated; Z56.0 Unemployment, unspecified; Z98.890 Other specified postprocedural states; Z95.0 Presence of cardiac pacemaker; Z86.14 Personal history of Methicillin resistant Staphylococcus aureus infection; Z88.8 Allergy status to other drugs, medicaments and biological substances; Z88.0 Allergy status to penicillin; Z88.1 Allergy status to other antibiotic agents
CPT/HCPCS: 99281

== ENCOUNTER 2019-08-10 21:21 | Emergency (ER) | payer MEDICAID ==
[~2019-08-10] VITALS: Ht 152.4 cm; Wt 75.0 kg
[2019-08-10 21:47] LABS: BASOPHILS # (AUTO) 0.2 X10'3 (0-0.2); BASOPHILS % (AUTO) 1.4 % (0-1); EOSINOPHILS # (AUTO) 0.2 X10'3 (0-0.9); EOSINOPHILS % (AUTO) 1.4 % (0-6); HEMATOCRIT 45.3 % (42.0-52.0); HEMOGLOBIN 15.5 g/dl (14.0-17.9); LYMPHOCYTES % (AUTO) 33.1 % (21-51); MEAN CORPUSCULAR HEMOGLOBIN 30.1 PG (27.0-31.0); MEAN CORPUSCULAR HGB CONC 34.1 g/dL (33.0-36.5); MEAN CORPUSCULAR VOLUME 88.2 FL (78-98); MEAN PLATELET VOLUME 8.4 FL (7.4-10.4); MONOCYTES % (AUTO) 8.1 % (2-12); NEUTROPHILS # (AUTO) 6.7 X10'3 (1.8-7.7); PLATELET COUNT 280 X10'3 (140-440); RED BLOOD COUNT 5.13 X10'6 (4.70-6.10); RED CELL DISTRIBUTION WIDTH 13.2 % (11.5-14.5)
[2019-08-10 21:53] VITALS: BP 109/69
[2019-08-10 22:03] LABS: ALANINE AMINOTRANSFERASE 23 U/L (12-78); ALBUMIN 4.2 G/DL (3.4-5.0); ALBUMIN/GLOBULIN RATIO 1.2 (1.1-1.5); ALKALINE PHOSPHATASE 79 IU/L (46-116); ANION GAP 6 (8-16); ASPARTATE AMINO TRANSFERASE 15 U/L (10-37); BILIRUBIN,TOTAL 0.9 MG/DL (0.1-1.0); BLOOD UREA NITROGEN 10 MG/DL (7-18); BUN/CREATININE RATIO 9.4 (5.4-32.0); CALCIUM 8.9 MG/DL (8.5-10.1); CHLORIDE 107 MMOL/L (99-107); CREATININE 1.06 MG/DL (0.60-1.10); GLUCOSE 95 MG/DL (70-104); POTASSIUM 3.4 MMOL/L (3.5-5.1); SODIUM 144 MMOL/L (135-145); TOTAL CARBON DIOXIDE 30.6 MMOL/L (24-32); TOTAL PROTEIN 7.6 G/DL (6.4-8.2); eGFR 84 ML/MIN
[2019-08-10] MEDS ORDERED: potassium Cl 20 mEq SR tablet PO ONE (22:10)
[2019-08-10] MEDS ORDERED: cefpodoxime proxetil 100mg tablet PO ONE (22:45)
[2019-08-10] MEDS ORDERED: azithromycin 250mg tablet PO ONE (22:45)
[2019-08-10] MEDS ORDERED: ALBU8HFA PO (22:51)
[2019-08-10] MEDS ORDERED: AZIT500T PO (22:51)
[2019-08-10] MEDS ORDERED: CEFP200T13 PO (22:51)
[2019-08-10] MEDS ORDERED: BENZ-16 PO (23:09)
== END 2019-08-10 23:31 | disposition home or self-care (01) ==
LOC: ER 21:22
DX: J18.8 Other pneumonia, unspecified organism (principal); I48.91 Unspecified atrial fibrillation; I10 Essential (primary) hypertension; R07.89 Other chest pain; F41.9 Anxiety disorder, unspecified; F12.90 Cannabis use, unspecified, uncomplicated; F32.9 Major depressive disorder, single episode, unspecified; F20.9 Schizophrenia, unspecified; Z56.0 Unemployment, unspecified; Z88.0 Allergy status to penicillin; Z88.1 Allergy status to other antibiotic agents; Z88.8 Allergy status to other drugs, medicaments and biological substances; Z88.5 Allergy status to narcotic agent; Z79.2 Long term (current) use of antibiotics; Z79.899 Other long term (current) drug therapy
CPT/HCPCS: 36415; 71045; 80053; 84484; 85025; 93005; 99285

== ENCOUNTER 2019-08-26 11:54 | Emergency (ER) | payer MEDICAID ==
[~2019-08-26] VITALS: Ht 177.8 cm; Wt 70.5 kg
[~2019-08-26 11:54] MED LIST changes: +ALBU8HFA PO
[2019-08-26 11:57] VITALS: BP 115/62
[2019-08-26] MEDS ORDERED: CLIN150C2 PO (13:21)
[2019-08-26] MEDS ORDERED: acetaminophen 325mg tablet PO ONE (13:25)
== END 2019-08-26 13:32 | disposition home or self-care (01) ==
LOC: ER 11:55
DX: S60.221A Contusion of right hand, initial encounter (principal); S60.021A Contusion of right index finger without damage to nail, initial encounter; S60.031A Contusion of right middle finger without damage to nail, initial encounter; S60.041A Contusion of right ring finger without damage to nail, initial encounter; S60.051A Contusion of right little finger without damage to nail, initial encounter; I48.91 Unspecified atrial fibrillation; I10 Essential (primary) hypertension; F41.9 Anxiety disorder, unspecified; F32.9 Major depressive disorder, single episode, unspecified; F20.9 Schizophrenia, unspecified; F12.90 Cannabis use, unspecified, uncomplicated; Z86.69 Personal history of other diseases of the nervous system and sense organs; Z86.14 Personal history of Methicillin resistant Staphylococcus aureus infection; Z95.0 Presence of cardiac pacemaker; Z98.890 Other specified postprocedural states; Z56.0 Unemployment, unspecified; Z88.0 Allergy status to penicillin; Z88.8 Allergy status to other drugs, medicaments and biological substances; Z79.2 Long term (current) use of antibiotics; Z79.899 Other long term (current) drug therapy; X99.1XXA Assault by knife, initial encounter; Y93.89 Activity, other specified; Y92.89 Other specified places as the place of occurrence of the external cause; Y99.8 Other external cause status
CPT/HCPCS: 73130; 93005; 99284

== ENCOUNTER 2020-03-11 14:34 | Emergency (ER) | payer MEDICAID, OTHER ==
[~2020-03-11] VITALS: Ht 177.8 cm; Wt 84.1 kg
[~2020-03-11 14:34] MED LIST changes: -ALBU8HFA PO
[2020-03-11 15:32] LABS: BASOPHILS # (AUTO) 0.1 X10'3 (0-0.2); EOSINOPHILS # (AUTO) 0.1 X10'3 (0-0.9); EOSINOPHILS % (AUTO) 0.5 % (0-6); HEMATOCRIT 45.4 % (42.0-52.0); HEMOGLOBIN 15.6 g/dl (14.0-17.9); LYMPHOCYTES # (AUTO) 2.6 X10'3 (1.1-4.8); LYMPHOCYTES % (AUTO) 26.4 % (21-51); MEAN CORPUSCULAR HEMOGLOBIN 29.7 PG (27.0-31.0); MEAN CORPUSCULAR HGB CONC 34.4 g/dL (33.0-36.5); MEAN CORPUSCULAR VOLUME 86.2 FL (78-98); MEAN PLATELET VOLUME 8.1 FL (7.4-10.4); MONOCYTES # (AUTO) 0.7 X10'3 (0-0.9); MONOCYTES % (AUTO) 6.9 % (2-12); NEUTROPHILS # (AUTO) 6.5 X10'3 (1.8-7.7); NEUTROPHILS % (AUTO) 65.2 % (42-75); PLATELET COUNT 272 X10'3 (140-440); RED BLOOD COUNT 5.26 X10'6 (4.70-6.10); RED CELL DISTRIBUTION WIDTH 12.3 % (11.5-14.5); WHITE BLOOD COUNT 9.9 X10'3 (4.5-11.0)
[2020-03-11 15:36] LABS: ALBUMIN 4.3 G/DL (3.4-5.0); ALBUMIN/GLOBULIN RATIO 1.2 (1.1-1.5); ANION GAP 7 (8-16); ASPARTATE AMINO TRANSFERASE 20 U/L (10-37); BILIRUBIN,TOTAL 0.9 MG/DL (0.1-1.0); BLOOD UREA NITROGEN 13 MG/DL (7-18); CALCIUM 9.1 MG/DL (8.5-10.1); CHLORIDE 103 MMOL/L (99-107); CREATININE 1.18 MG/DL (0.60-1.10); GLUCOSE 117 MG/DL (70-104); POTASSIUM 4.2 MMOL/L (3.5-5.1); SODIUM 140 MMOL/L (135-145); TOTAL CARBON DIOXIDE 29.6 MMOL/L (24-32); eGFR 74 ML/MIN
[2020-03-11 15:37] LABS: ALANINE AMINOTRANSFERASE 48 U/L (12-78); ALKALINE PHOSPHATASE 73 IU/L (46-116)
[2020-03-11 15:53] LABS: D-DIMER < 0.19 MG/L FEU (0-0.50)
[2020-03-11 17:00] VITALS: BP 128/88
== END 2020-03-11 18:19 ==
LOC: ER 14:35
DX: I48.0 Paroxysmal atrial fibrillation (principal); R07.89 Other chest pain; I47.1 Supraventricular tachycardia; I10 Essential (primary) hypertension; F41.9 Anxiety disorder, unspecified; F32.9 Major depressive disorder, single episode, unspecified; F20.9 Schizophrenia, unspecified; F12.90 Cannabis use, unspecified, uncomplicated; Z86.69 Personal history of other diseases of the nervous system and sense organs; Z86.14 Personal history of Methicillin resistant Staphylococcus aureus infection; Z95.0 Presence of cardiac pacemaker; Z98.890 Other specified postprocedural states; Z56.0 Unemployment, unspecified; Z88.0 Allergy status to penicillin; Z88.8 Allergy status to other drugs, medicaments and biological substances; Z79.899 Other long term (current) drug therapy
CPT/HCPCS: 36415; 71045; 80053; 83880; 84484; 85025; 85379; 93005; 99285

== ENCOUNTER 2021-06-02 12:08 | Emergency (ER) | payer MEDICAID, OTHER ==
[~2021-06-02] VITALS: Ht 175.3 cm; Wt 84.1 kg
[2021-06-02 12:35] LABS: BASOPHILS # (AUTO) 0.1 X10'3 (0-0.2); BASOPHILS % (AUTO) 0.6 % (0-1); EOSINOPHILS # (AUTO) 0.1 X10'3 (0-0.9); EOSINOPHILS % (AUTO) 0.6 % (0-6); HEMATOCRIT 47.8 % (42.0-52.0); HEMOGLOBIN 16.5 g/dl (14.0-17.9); LYMPHOCYTES # (AUTO) 2.5 X10'3 (1.1-4.8); LYMPHOCYTES % (AUTO) 21.9 % (21-51); MEAN CORPUSCULAR HGB CONC 34.5 g/dL (33.0-36.5); MEAN PLATELET VOLUME 8.1 FL (7.4-10.4); MONOCYTES # (AUTO) 1.1 X10'3 (0-0.9); MONOCYTES % (AUTO) 9.3 % (2-12); NEUTROPHILS # (AUTO) 7.9 X10'3 (1.8-7.7); NEUTROPHILS % (AUTO) 67.6 % (42-75); PLATELET COUNT 302 X10'3 (140-440); RED BLOOD COUNT 5.49 X10'6 (4.70-6.10); WHITE BLOOD COUNT 11.6 X10'3 (4.5-11.0)
[2021-06-02 12:43] LABS: ALANINE AMINOTRANSFERASE 49 U/L (12-78); ALBUMIN 3.8 G/DL (3.4-5.0); ALKALINE PHOSPHATASE 86 IU/L (46-116); ANION GAP 7 (8-16); ASPARTATE AMINO TRANSFERASE 29 U/L (10-37); BILIRUBIN,TOTAL 0.8 MG/DL (0.1-1.0); BLOOD UREA NITROGEN 10 MG/DL (7-18); BUN/CREATININE RATIO 10.3 (5.4-32.0); CALCIUM 9.3 MG/DL (8.5-10.1); CHLORIDE 106 MMOL/L (99-107); CREATININE 0.97 MG/DL (0.60-1.10); GLUCOSE 93 MG/DL (70-104); SODIUM 144 MMOL/L (135-145); TOTAL CARBON DIOXIDE 30.6 MMOL/L (24-32); TOTAL PROTEIN 7.7 G/DL (6.4-8.2); eGFR > 90 ML/MIN
[2021-06-02] MEDS ORDERED: FLEC100T2 PO (14:55)
--- NOTE | 2021-06-02 15:41 | NUR ---
pacemaker interagated nothing found on intaragation
[2021-06-02 16:32] VITALS: BP 137/98
== END 2021-06-02 16:34 | disposition home or self-care (01) ==
LOC: ER 12:09
DX: R07.89 Other chest pain (principal); R06.02 Shortness of breath; M79.602 Pain in left arm; R20.0 Anesthesia of skin; G40.909 Epilepsy, unspecified, not intractable, without status epilepticus; I48.91 Unspecified atrial fibrillation; I10 Essential (primary) hypertension; F17.200 Nicotine dependence, unspecified, uncomplicated; F12.90 Cannabis use, unspecified, uncomplicated; Z56.0 Unemployment, unspecified; Z72.89 Other problems related to lifestyle; Z98.890 Other specified postprocedural states; Z86.14 Personal history of Methicillin resistant Staphylococcus aureus infection; Z87.81 Personal history of (healed) traumatic fracture; Z88.8 Allergy status to other drugs, medicaments and biological substances; Z88.0 Allergy status to penicillin; Z88.1 Allergy status to other antibiotic agents; Z88.6 Allergy status to analgesic agent; Z79.899 Other long term (current) drug therapy; Z95.0 Presence of cardiac pacemaker
CPT/HCPCS: 36415; 71045; 80053; 83880; 84484; 85025; 93005; 99285

== ENCOUNTER 2021-08-05 09:02 | Emergency (ER) | payer MEDICAID ==
[~2021-08-05] VITALS: Ht 177.8 cm; Wt 88.6 kg
[~2021-08-05 09:02] MED LIST changes: +FLEC100T2 PO
[2021-08-05] MEDS ORDERED: aspirin 81mg tab.chew PO ONE (09:20)
[2021-08-05 09:30] VITALS: BP 107/77
[2021-08-05 09:43] LABS: BASOPHILS # (AUTO) 0.1 X10'3 (0-0.2); NEUTROPHILS # (AUTO) 7.6 X10'3 (1.8-7.7)
[2021-08-05 09:45] LABS: BASOPHILS % (AUTO) 0.9 % (0-1); EOSINOPHILS # (AUTO) 0.1 X10'3 (0-0.9); EOSINOPHILS % (AUTO) 0.5 % (0-6); HEMATOCRIT 49.4 % (42.0-52.0); HEMOGLOBIN 17.2 g/dl (14.0-17.9); LYMPHOCYTES # (AUTO) 2.2 X10'3 (1.1-4.8); LYMPHOCYTES % (AUTO) 20.2 % (21-51); MEAN CORPUSCULAR HEMOGLOBIN 31.3 PG (27.0-31.0); MEAN CORPUSCULAR HGB CONC 34.9 g/dL (33.0-36.5); MEAN CORPUSCULAR VOLUME 89.9 FL (78-98); NEUTROPHILS % (AUTO) 69.4 % (42-75); PLATELET COUNT 275 X10'3 (140-440); RED CELL DISTRIBUTION WIDTH 13.8 % (11.5-14.5); WHITE BLOOD COUNT 10.9 X10'3 (4.5-11.0)
[2021-08-05 10:08] LABS: ALANINE AMINOTRANSFERASE 74 U/L (12-78); ALBUMIN 3.8 G/DL (3.4-5.0); ANION GAP 10 (8-16); ASPARTATE AMINO TRANSFERASE 30 U/L (10-37); BILIRUBIN,TOTAL 0.9 MG/DL (0.1-1.0); BLOOD UREA NITROGEN 11 MG/DL (7-18); BUN/CREATININE RATIO 12.4 (5.4-32.0); CALCIUM 8.9 MG/DL (8.5-10.1); CHLORIDE 105 MMOL/L (99-107); CREATININE 0.89 MG/DL (0.60-1.10); GLUCOSE 99 MG/DL (70-104); POTASSIUM 3.8 MMOL/L (3.5-5.1); SODIUM 140 MMOL/L (135-145); TOTAL CARBON DIOXIDE 24.7 MMOL/L (24-32); TOTAL PROTEIN 7.5 G/DL (6.4-8.2); eGFR > 90 ML/MIN
== END 2021-08-05 11:39 | disposition home or self-care (01) ==
LOC: ER 09:02
DX: R07.89 Other chest pain (principal); M79.602 Pain in left arm; F41.9 Anxiety disorder, unspecified; Z95.0 Presence of cardiac pacemaker
CPT/HCPCS: 36415; 71045; 80053; 83735; 83880; 84484; 85025; 93005; 99285

== ENCOUNTER 2021-09-01 13:04 | Emergency (ER) | payer MEDICAID ==
[~2021-09-01] VITALS: Ht 177.8 cm; Wt 88.6 kg
[2021-09-01 13:15] VITALS: BP 112/77
[2021-09-01 13:47] LABS: BASOPHILS # (AUTO) 0.1 X10'3 (0-0.2); BASOPHILS % (AUTO) 0.6 % (0-1); EOSINOPHILS % (AUTO) 0.4 % (0-6); HEMATOCRIT 51.1 % (42.0-52.0); HEMOGLOBIN 17.2 g/dl (14.0-17.9); LYMPHOCYTES # (AUTO) 2.1 X10'3 (1.1-4.8); MEAN CORPUSCULAR HEMOGLOBIN 31.1 PG (27.0-31.0); MEAN CORPUSCULAR HGB CONC 33.6 g/dL (33.0-36.5); MEAN CORPUSCULAR VOLUME 92.6 FL (78-98); MEAN PLATELET VOLUME 8.1 FL (7.4-10.4); MONOCYTES % (AUTO) 8.7 % (2-12); NEUTROPHILS # (AUTO) 8.6 X10'3 (1.8-7.7); NEUTROPHILS % (AUTO) 72.3 % (42-75); PLATELET COUNT 293 X10'3 (140-440); RED BLOOD COUNT 5.52 X10'6 (4.70-6.10); RED CELL DISTRIBUTION WIDTH 13.5 % (11.5-14.5); WHITE BLOOD COUNT 11.8 X10'3 (4.5-11.0)
[2021-09-01 14:02] LABS: ALANINE AMINOTRANSFERASE 58 U/L (12-78); ALBUMIN 3.9 G/DL (3.4-5.0); ALKALINE PHOSPHATASE 78 IU/L (46-116); ANION GAP 10 (8-16); ASPARTATE AMINO TRANSFERASE 34 U/L (10-37); BILIRUBIN,TOTAL 0.8 MG/DL (0.1-1.0); BLOOD UREA NITROGEN 9 MG/DL (7-18); BUN/CREATININE RATIO 10.6 (5.4-32.0); CALCIUM 9.3 MG/DL (8.5-10.1); CHLORIDE 104 MMOL/L (99-107); CREATININE 0.85 MG/DL (0.60-1.10); GLUCOSE 101 MG/DL (70-104); POTASSIUM 4.3 MMOL/L (3.5-5.1); SODIUM 139 MMOL/L (135-145); TOTAL CARBON DIOXIDE 24.6 MMOL/L (24-32); TOTAL PROTEIN 7.9 G/DL (6.4-8.2); eGFR > 90 ML/MIN
== END 2021-09-01 19:34 | disposition left against medical advice (07) ==
LOC: ER 13:05
DX: R07.9 Chest pain, unspecified (principal); Z53.21 Procedure and treatment not carried out due to patient leaving prior to being seen by health care provider
CPT/HCPCS: 36415; 71045; 80053; 83880; 84484; 85025; 93005

== ENCOUNTER 2021-09-05 16:18 | Emergency (ER) | payer MEDICAID ==
[~2021-09-05] VITALS: Ht 177.8 cm; Wt 86.0 kg
[2021-09-05 17:59] VITALS: BP 117/73
[2021-09-05] MEDS ORDERED: DOXYCYCLINE 100MG CAPSULE PO STA (18:10)
[2021-09-05] MEDS ORDERED: ALBU8.5H17 IH (18:14)
[2021-09-05] MEDS ORDERED: DOXY100C43 PO (18:14)
== END 2021-09-05 19:02 | disposition home or self-care (01) ==
LOC: ER 16:19
DX: J40 Bronchitis, not specified as acute or chronic (principal); J02.9 Acute pharyngitis, unspecified; R05.9 Cough, unspecified; R07.89 Other chest pain; I48.91 Unspecified atrial fibrillation; I10 Essential (primary) hypertension; F41.9 Anxiety disorder, unspecified; F32.A Depression, unspecified; F12.90 Cannabis use, unspecified, uncomplicated; F17.210 Nicotine dependence, cigarettes, uncomplicated; F20.9 Schizophrenia, unspecified; Z86.69 Personal history of other diseases of the nervous system and sense organs; Z86.14 Personal history of Methicillin resistant Staphylococcus aureus infection; Z95.0 Presence of cardiac pacemaker; Z98.890 Other specified postprocedural states; Z72.89 Other problems related to lifestyle; Z56.0 Unemployment, unspecified; Z88.8 Allergy status to other drugs, medicaments and biological substances; Z88.1 Allergy status to other antibiotic agents; Z79.2 Long term (current) use of antibiotics; Z79.899 Other long term (current) drug therapy
CPT/HCPCS: 93005; 99283

== ENCOUNTER 2021-09-11 16:49 | Emergency (ER) | payer MEDICAID ==
[~2021-09-11] VITALS: Ht 177.8 cm; Wt 88.6 kg
[~2021-09-11 16:49] MED LIST changes: +ALBU8.5H17 IH; +DOXY100C43 PO
[2021-09-11 17:21] LABS: HEMOGLOBIN 16.5 g/dl (14.0-17.9); WHITE BLOOD COUNT 10.8 X10'3 (4.5-11.0)
[2021-09-11 17:23] LABS: BASOPHILS # (AUTO) 0.1 X10'3 (0-0.2); BASOPHILS % (AUTO) 0.9 % (0-1); EOSINOPHILS % (AUTO) 0.3 % (0-6); LYMPHOCYTES % (AUTO) 18.9 % (21-51); MEAN CORPUSCULAR HEMOGLOBIN 31.2 PG (27.0-31.0); MEAN CORPUSCULAR HGB CONC 34.5 g/dL (33.0-36.5); MEAN CORPUSCULAR VOLUME 90.6 FL (78-98); MONOCYTES # (AUTO) 0.8 X10'3 (0-0.9); MONOCYTES % (AUTO) 7.7 % (2-12); NEUTROPHILS # (AUTO) 7.8 X10'3 (1.8-7.7); NEUTROPHILS % (AUTO) 72.2 % (42-75); PLATELET COUNT 235 X10'3 (140-440); RED CELL DISTRIBUTION WIDTH 12.7 % (11.5-14.5)
[2021-09-11 17:35] LABS: ALANINE AMINOTRANSFERASE 46 U/L (12-78); ALBUMIN 3.7 G/DL (3.4-5.0); ALKALINE PHOSPHATASE 68 IU/L (46-116); ANION GAP 14 (8-16); ASPARTATE AMINO TRANSFERASE 29 U/L (10-37); BILIRUBIN,TOTAL 0.9 MG/DL (0.1-1.0); BLOOD UREA NITROGEN 8 MG/DL (7-18); BUN/CREATININE RATIO 8.7 (5.4-32.0); CALCIUM 8.8 MG/DL (8.5-10.1); CHLORIDE 106 MMOL/L (99-107); CREATININE 0.92 MG/DL (0.60-1.10); GLUCOSE 139 MG/DL (70-104); POTASSIUM 3.5 MMOL/L (3.5-5.1); SODIUM 143 MMOL/L (135-145); TOTAL CARBON DIOXIDE 23.4 MMOL/L (24-32); TOTAL PROTEIN 7.4 G/DL (6.4-8.2); eGFR > 90 ML/MIN
[2021-09-11 18:42] VITALS: BP 151/99
== END 2021-09-11 19:47 | disposition home or self-care (01) ==
LOC: ER 16:50
DX: R07.9 Chest pain, unspecified (principal); I11.9 Hypertensive heart disease without heart failure; F31.9 Bipolar disorder, unspecified; F20.9 Schizophrenia, unspecified; F12.10 Cannabis abuse, uncomplicated; Z88.8 Allergy status to other drugs, medicaments and biological substances; Z88.0 Allergy status to penicillin; Z88.1 Allergy status to other antibiotic agents; Z88.6 Allergy status to analgesic agent
CPT/HCPCS: 36415; 71045; 80053; 83880; 84484; 85025; 93005; 99285

== ENCOUNTER 2021-09-28 18:57 | Emergency (ER) | payer MEDICAID ==
[~2021-09-28] VITALS: Ht 180.3 cm; Wt 93.0 kg
[~2021-09-28 18:57] MED LIST changes: -DOXY100C43 PO
[2021-09-28 19:26] LABS: BASOPHILS # (AUTO) 0.1 X10'3 (0-0.2); BASOPHILS % (AUTO) 0.5 % (0-1); EOSINOPHILS # (AUTO) 0.1 X10'3 (0-0.9); EOSINOPHILS % (AUTO) 0.7 % (0-6); HEMATOCRIT 47.8 % (42.0-52.0); HEMOGLOBIN 16.3 g/dl (14.0-17.9); LYMPHOCYTES # (AUTO) 3.1 X10'3 (1.1-4.8); LYMPHOCYTES % (AUTO) 22.5 % (21-51); MEAN CORPUSCULAR HEMOGLOBIN 31.3 PG (27.0-31.0); MEAN CORPUSCULAR HGB CONC 34.1 g/dL (33.0-36.5); MEAN CORPUSCULAR VOLUME 91.7 FL (78-98); MONOCYTES % (AUTO) 7.6 % (2-12); NEUTROPHILS # (AUTO) 9.5 X10'3 (1.8-7.7); NEUTROPHILS % (AUTO) 68.7 % (42-75); PLATELET COUNT 259 X10'3 (140-440); RED BLOOD COUNT 5.21 X10'6 (4.70-6.10); RED CELL DISTRIBUTION WIDTH 13.3 % (11.5-14.5); WHITE BLOOD COUNT 13.8 X10'3 (4.5-11.0)
[2021-09-28] MEDS ORDERED: chlordiazePOXIDE 25mg capsule PO ONE (19:35)
[2021-09-28] MEDS ORDERED: normal saline 1000ML IV soln IVB ONE (19:35)
[2021-09-28 19:57] LABS: ALANINE AMINOTRANSFERASE 67 U/L (12-78); ALBUMIN 3.6 G/DL (3.4-5.0); ALKALINE PHOSPHATASE 68 IU/L (46-116); ANION GAP 15 (8-16); ASPARTATE AMINO TRANSFERASE 43 U/L (10-37); BILIRUBIN,TOTAL 0.6 MG/DL (0.1-1.0); BLOOD UREA NITROGEN 11 MG/DL (7-18); BUN/CREATININE RATIO 11.7 (5.4-32.0); CALCIUM 8.7 MG/DL (8.5-10.1); CHLORIDE 101 MMOL/L (99-107); CREATININE 0.94 MG/DL (0.60-1.10); GLUCOSE 119 MG/DL (70-104); POTASSIUM 3.7 MMOL/L (3.5-5.1); SODIUM 139 MMOL/L (135-145); TOTAL CARBON DIOXIDE 22.7 MMOL/L (24-32); TOTAL PROTEIN 7.2 G/DL (6.4-8.2); eGFR > 90 ML/MIN
[2021-09-28] MEDS ORDERED: CHLO25CA10 PO (20:25)
[2021-09-28 20:40] VITALS: BP 124/81
== END 2021-09-28 20:42 | disposition home or self-care (01) ==
LOC: ER 18:57
DX: R07.9 Chest pain, unspecified (principal); F10.230 Alcohol dependence with withdrawal, uncomplicated; I11.9 Hypertensive heart disease without heart failure; F31.9 Bipolar disorder, unspecified; F20.9 Schizophrenia, unspecified; F17.210 Nicotine dependence, cigarettes, uncomplicated; F12.10 Cannabis abuse, uncomplicated; Z88.2 Allergy status to sulfonamides; Z88.0 Allergy status to penicillin; Z88.6 Allergy status to analgesic agent; Z87.81 Personal history of (healed) traumatic fracture
CPT/HCPCS: 36415; 71045; 80053; 83880; 84484; 85025; 93005; 99285; J7030

== ENCOUNTER 2021-10-04 16:25 | Emergency (ER) | payer MEDICAID ==
[~2021-10-04] VITALS: Ht 180.3 cm; Wt 87.2 kg
[~2021-10-04 16:25] MED LIST changes: +CHLO25CA10 PO
[2021-10-04 16:36] VITALS: BP 113/74
[2021-10-04] MEDS ORDERED: dexamethasone sod phosphate 10mg/ml inj PO STA (17:00)
[2021-10-04] MEDS ORDERED: CEPH500C2 PO (17:37)
[2021-10-04] MEDS ORDERED: cephalexin 250mg capsule PO ONE (17:40)
== END 2021-10-04 17:57 | disposition home or self-care (01) ==
LOC: ER 16:25
DX: J02.9 Acute pharyngitis, unspecified (principal); R05.9 Cough, unspecified; R11.0 Nausea; I48.91 Unspecified atrial fibrillation; I10 Essential (primary) hypertension; F17.200 Nicotine dependence, unspecified, uncomplicated; F12.90 Cannabis use, unspecified, uncomplicated; Z87.81 Personal history of (healed) traumatic fracture; Z86.14 Personal history of Methicillin resistant Staphylococcus aureus infection; Z72.89 Other problems related to lifestyle; Z56.0 Unemployment, unspecified; Z95.0 Presence of cardiac pacemaker; Z88.0 Allergy status to penicillin; Z88.1 Allergy status to other antibiotic agents; Z88.8 Allergy status to other drugs, medicaments and biological substances; Z79.2 Long term (current) use of antibiotics; Z79.899 Other long term (current) drug therapy
CPT/HCPCS: 87880; 99283; J1100

== ENCOUNTER 2021-11-19 15:25 | Emergency (ER) | payer MEDICAID ==
[~2021-11-19] VITALS: Ht 175.3 cm; Wt 88.6 kg
[2021-11-19 15:31] VITALS: BP 122/80
[2021-11-19 16:07] LABS: BASOPHILS # (AUTO) 0.2 X10'3 (0-0.2); BASOPHILS % (AUTO) 1.6 % (0-1); EOSINOPHILS % (AUTO) 0.3 % (0-6); HEMATOCRIT 48.8 % (42.0-52.0); HEMOGLOBIN 16.5 g/dl (14.0-17.9); LYMPHOCYTES # (AUTO) 3.2 X10'3 (1.1-4.8); LYMPHOCYTES % (AUTO) 30.5 % (21-51); MEAN CORPUSCULAR HEMOGLOBIN 30.2 PG (27.0-31.0); MEAN CORPUSCULAR HGB CONC 33.9 g/dL (33.0-36.5); MEAN CORPUSCULAR VOLUME 89.2 FL (78-98); MEAN PLATELET VOLUME 8.2 FL (7.4-10.4); MONOCYTES # (AUTO) 0.9 X10'3 (0-0.9); MONOCYTES % (AUTO) 9.1 % (2-12); NEUTROPHILS # (AUTO) 6.1 X10'3 (1.8-7.7); NEUTROPHILS % (AUTO) 58.5 % (42-75); PLATELET COUNT 283 X10'3 (140-440); RED BLOOD COUNT 5.47 X10'6 (4.70-6.10); RED CELL DISTRIBUTION WIDTH 13.8 % (11.5-14.5); WHITE BLOOD COUNT 10.4 X10'3 (4.5-11.0)
[2021-11-19 16:25] LABS: ALANINE AMINOTRANSFERASE 28 U/L (12-78); ALBUMIN 4.2 G/DL (3.4-5.0); ALBUMIN/GLOBULIN RATIO 1.1 (1.1-1.5); ALKALINE PHOSPHATASE 82 IU/L (46-116); ANION GAP 13 (8-16); ASPARTATE AMINO TRANSFERASE 23 U/L (10-37); BLOOD UREA NITROGEN 6 MG/DL (7-18); BUN/CREATININE RATIO 6.3 (5.4-32.0); CALCIUM 9.1 MG/DL (8.5-10.1); CHLORIDE 105 MMOL/L (99-107); CREATININE 0.95 MG/DL (0.60-1.10); GLUCOSE 114 MG/DL (70-104); POTASSIUM 3.5 MMOL/L (3.5-5.1); SODIUM 143 MMOL/L (135-145); TOTAL CARBON DIOXIDE 25.3 MMOL/L (24-32); TOTAL PROTEIN 8.1 G/DL (6.4-8.2); eGFR > 90 ML/MIN
[2021-11-19] MEDS ORDERED: DOXY100C76 PO (18:03)
== END 2021-11-19 18:09 | disposition home or self-care (01) ==
LOC: ER 15:26
DX: J20.9 Acute bronchitis, unspecified (principal); R07.9 Chest pain, unspecified; I11.9 Hypertensive heart disease without heart failure; F31.9 Bipolar disorder, unspecified; F20.9 Schizophrenia, unspecified; Z86.14 Personal history of Methicillin resistant Staphylococcus aureus infection; F12.10 Cannabis abuse, uncomplicated; Z88.0 Allergy status to penicillin; Z88.2 Allergy status to sulfonamides; Z88.1 Allergy status to other antibiotic agents; Z88.8 Allergy status to other drugs, medicaments and biological substances; Z79.899 Other long term (current) drug therapy
CPT/HCPCS: 36415; 71045; 80053; 83880; 84484; 85025; 93005; 99285

== ENCOUNTER 2021-12-13 18:32 | Emergency (ER) | payer MEDICAID ==
[~2021-12-13] VITALS: Ht 177.8 cm; Wt 81.6 kg
[2021-12-13 18:53] VITALS: BP 120/87
[2021-12-13 19:33] LABS: HEMOGLOBIN 16.6 g/dl (14.0-17.9); RED CELL DISTRIBUTION WIDTH 13.9 % (11.5-14.5)
[2021-12-13 19:35] LABS: BASOPHILS # (AUTO) 0.1 X10'3 (0-0.2); BASOPHILS % (AUTO) 0.6 % (0-1); EOSINOPHILS # (AUTO) 0.1 X10'3 (0-0.9); EOSINOPHILS % (AUTO) 0.9 % (0-6); HEMATOCRIT 48.5 % (42.0-52.0); LYMPHOCYTES # (AUTO) 3.2 X10'3 (1.1-4.8); LYMPHOCYTES % (AUTO) 27.3 % (21-51); MEAN CORPUSCULAR HEMOGLOBIN 30.4 PG (27.0-31.0); MEAN CORPUSCULAR HGB CONC 34.2 g/dL (33.0-36.5); MEAN CORPUSCULAR VOLUME 88.9 FL (78-98); MEAN PLATELET VOLUME 7.9 FL (7.4-10.4); MONOCYTES % (AUTO) 8.2 % (2-12); NEUTROPHILS # (AUTO) 7.4 X10'3 (1.8-7.7); PLATELET COUNT 298 X10'3 (140-440); RED BLOOD COUNT 5.46 X10'6 (4.70-6.10); WHITE BLOOD COUNT 11.7 X10'3 (4.5-11.0)
[2021-12-13 19:41] LABS: ALANINE AMINOTRANSFERASE 31 U/L (12-78); ALBUMIN 3.8 G/DL (3.4-5.0); ALKALINE PHOSPHATASE 73 IU/L (46-116); ANION GAP 9 (8-16); ASPARTATE AMINO TRANSFERASE 24 U/L (10-37); BILIRUBIN,TOTAL 0.8 MG/DL (0.1-1.0); BLOOD UREA NITROGEN 6 MG/DL (7-18); BUN/CREATININE RATIO 7.4 (5.4-32.0); CALCIUM 8.9 MG/DL (8.5-10.1); CHLORIDE 105 MMOL/L (99-107); CREATININE 0.81 MG/DL (0.60-1.10); GLUCOSE 98 MG/DL (70-104); POTASSIUM 3.8 MMOL/L (3.5-5.1); SODIUM 141 MMOL/L (135-145); TOTAL CARBON DIOXIDE 26.9 MMOL/L (24-32); TOTAL PROTEIN 7.6 G/DL (6.4-8.2); eGFR > 90 ML/MIN
== END 2021-12-13 20:03 | disposition left against medical advice (07) ==
LOC: ER 18:33
DX: R42 Dizziness and giddiness (principal); R07.9 Chest pain, unspecified; R06.02 Shortness of breath; Z53.21 Procedure and treatment not carried out due to patient leaving prior to being seen by health care provider
CPT/HCPCS: 36415; 71045; 80053; 83880; 84484; 85025; 93005

== ENCOUNTER 2022-03-13 08:11 | Emergency (ER) | payer MEDICAID ==
[~2022-03-13] VITALS: Ht 175.3 cm; Wt 84.1 kg
[2022-03-13 09:02] LABS: BASOPHILS # (AUTO) 0.1 X10'3 (0-0.2); BASOPHILS % (AUTO) 0.8 % (0-1); EOSINOPHILS % (AUTO) 0.3 % (0-6); HEMATOCRIT 51.5 % (42.0-52.0); HEMOGLOBIN 17.7 g/dl (14.0-17.9); LYMPHOCYTES # (AUTO) 2.7 X10'3 (1.1-4.8); LYMPHOCYTES % (AUTO) 27.6 % (21-51); MEAN CORPUSCULAR HEMOGLOBIN 30.6 PG (27.0-31.0); MEAN CORPUSCULAR HGB CONC 34.4 g/dL (33.0-36.5); MEAN CORPUSCULAR VOLUME 88.9 FL (78-98); MEAN PLATELET VOLUME 8.8 FL (7.4-10.4); MONOCYTES # (AUTO) 0.6 X10'3 (0-0.9); MONOCYTES % (AUTO) 6.1 % (2-12); NEUTROPHILS # (AUTO) 6.4 X10'3 (1.8-7.7); NEUTROPHILS % (AUTO) 65.2 % (42-75); PLATELET COUNT 287 X10'3 (140-440); RED BLOOD COUNT 5.79 X10'6 (4.70-6.10); RED CELL DISTRIBUTION WIDTH 12.9 % (11.5-14.5); WHITE BLOOD COUNT 9.8 X10'3 (4.5-11.0)
[2022-03-13 09:20] LABS: ALANINE AMINOTRANSFERASE 36 U/L (12-78); ALBUMIN 4.6 G/DL (3.4-5.0); ALBUMIN/GLOBULIN RATIO 1.2 (1.1-1.5); ALKALINE PHOSPHATASE 70 IU/L (46-116); ANION GAP 11 (8-16); ASPARTATE AMINO TRANSFERASE 16 U/L (10-37); BILIRUBIN,TOTAL 0.8 MG/DL (0.1-1.0); BLOOD UREA NITROGEN 7 MG/DL (7-18); BUN/CREATININE RATIO 7.8 (5.4-32.0); CALCIUM 8.7 MG/DL (8.5-10.1); CHLORIDE 107 MMOL/L (99-107); GLUCOSE 105 MG/DL (70-104); POTASSIUM 3.8 MMOL/L (3.5-5.1); SODIUM 144 MMOL/L (135-145); TOTAL CARBON DIOXIDE 26.5 MMOL/L (24-32); TOTAL PROTEIN 8.6 G/DL (6.4-8.2); eGFR > 90 ML/MIN
[2022-03-13] MEDS ORDERED: normal saline 1000ML IV soln IVB ONE (09:20)
[2022-03-13 09:23] LABS: ETHANOL 0.167 GM/DL (0.0-0.010)
[2022-03-13] MEDS ORDERED: OLANZapine **IM** 10 mg inj. IM ONE (11:10)
[2022-03-13] MEDS ORDERED: diphenhydrAMINE 50 mg/ml inj IM ONE (11:10)
--- NOTE | 2022-03-13 11:21 | NUR ---
Amanda rivers in [facility] - 03/13/22 at 1539 by TAMMY Removed LLE restraint.
--- NOTE | 2022-03-13 11:25 | NUR ---
Amanda rivers in [facility] - 03/13/22 at 1541 by TAMMY Removed LLE restraint.
--- NOTE | 2022-03-13 11:45 | NUR ---
Pt moved from ER main bed 9 to ER overflow bed 20 at 1045 accompanied by PCT and security. Pt refused to comply with safety measures. He would not change into green scrubs or remove his jewelry despite explanation of why it must be done and despite a show of support by staff and security. Pt became belligerent with verbal threats and posturing. Pt did not respond to verbal de-escalation and could not follow direction. Pt was not receptive to oral meds and became combative. An order was obtained for emergent IM meds and 4 point behavioral restraints. Pt was given Zyprexa 10 mg and Benadryl 50 mg IM. Behavioral restraints initiated at 1121.
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
--- NOTE | 2022-03-13 12:25 | NUR ---
Removed LLE restraint.
--- NOTE | 2022-03-13 12:40 | NUR ---
Pt is calm and sleeping. All restraints removed.
[2022-03-13] MEDS ORDERED: ALPR1TAB2 PO (12:59)
[2022-03-13] MEDS ORDERED: PREG150C PO (12:59)
[2022-03-13] MEDS ORDERED: METO75TA PO (12:59)
--- NOTE | 2022-03-13 14:13 | NUR ---
Pt is independently repositioning himself in bed, he turned from his back to his right side.
--- NOTE | 2022-03-13 14:49 | NUR ---
Esther Arceo: [phone]
[2022-03-13] MEDS: pregabalin 75mg capsule PO SCH ×2 (17:00→20:21)
--- NOTE | 2022-03-13 17:01 | NUR ---
Urine collected and sent. Pt is on the phone with his .
[2022-03-13 17:15] LABS: CLARITY,URINE CLEAR (Clear); GLUCOSE, URINE NEGATIVE (Neg); KETONES,URINE NEGATIVE (Neg); LEUKOCYTE ESTERASE ,URINE NEGATIVE (Neg); NITRITES, URINE NEGATIVE (Neg); OCCULT BLOOD,URINE NEGATIVE (Neg); PROTEIN,URINE NEGATIVE (Neg); UROBILINOGEN,URINE 0.2 E.U/dL (0.2-1.0)
[2022-03-13 17:16] LABS: COLOR,URINE STRAW (Yellow); UA COLLECTION TYPE CLN CATCH MIDSTREAM
[2022-03-13 17:35] LABS: URINE AMPHETAMINE SCREEN NEGATIVE (Neg); URINE BARBITUATE SCREEN NEGATIVE (Neg); URINE BENZODIAZEPINES SCREEN POSITIVE (Neg); URINE CANNABINOID SCREEN POSITIVE (Neg); URINE COCAINE SCREEN NEGATIVE (Neg); URINE METHADONE SCREEN NEGATIVE (Neg); URINE OPIATE SCREEN NEGATIVE (Neg); URINE PHENCYCLIDINE SCREEN NEGATIVE (Neg)
--- NOTE | 2022-03-13 17:54 | NUR ---
Faxed packet to [facility].
--- NOTE | 2022-03-13 18:01 | NUR ---
Pt refused his Lyrica, states he has not been taking it. Pt requesting Xanax and wished to ensure that he would get his metoprolol and flecainide tonight.
[2022-03-13] MEDS: ALPRAZolam 0.5mg tablet PO PRN (18:08)
--- NOTE | 2022-03-13 19:46 | NUR ---
Patient was sleeping at shift change. Patient awoke and ate dinner. 1:1 Interview at bedside. Patient is oriented X4, he is cooperative. Speech is clear. Eye contact is good. Patient states he would like to go home. He denies S/I, H/I, or any hallucinations. Patient states his S/I state was secondary to alcohol intoxification. Patient was advised that he would need to be evaluated by [facility] prior to his hold being changed in any way. He exhibits understanding. Patient returns to sleep.
[2022-03-13] MEDS: flecainide 50mg tablet PO SCH (20:21)
[2022-03-13] MEDS: metoprolol tartrate 25mg tablet PO SCH (20:21)
--- NOTE | 2022-03-13 21:40 | NUR ---
Patient is sleeping quietly, supine in bed.
--- NOTE | 2022-03-14 00:02 | NUR ---
Patient is sleeping on his left side. Mid Fowlers bed position.
--- NOTE | 2022-03-14 02:31 | NUR ---
Patient sleeping quietly, he has self repositioned in bed. No distress noted.
--- NOTE | 2022-03-14 05:28 | NUR ---
Patient is sleeping, mid fowlers in bed. No distress.
--- NOTE | 2022-03-14 07:00 | NUR ---
Pt is lying in bed, appears to be sleeping.
[2022-03-14] MEDS: metoprolol tartrate 25mg tablet PO SCH (08:00)
[2022-03-14] MEDS: pregabalin 75mg capsule PO SCH (08:23)
[2022-03-14] MEDS: flecainide 50mg tablet PO SCH (08:23)
[2022-03-14] MEDS: ALPRAZolam 0.5mg tablet PO PRN (08:25)
--- NOTE | 2022-03-14 09:00 | NUR ---
Pt being evaluated by SCM.
--- NOTE | 2022-03-14 09:45 | NUR ---
Pt is being discharged home with .
--- NOTE | 2022-03-14 09:55 | NUR ---
Removed saline lock right AC.
--- NOTE | 2022-03-14 10:11 | NUR ---
Pt discharged home, ambulated off the unit accompanied by security.
[2022-03-14 10:12] VITALS: BP 94/61
== END 2022-03-14 10:11 | disposition home or self-care (01) ==
LOC: ER 08:12
DX: R45.851 Suicidal ideations (principal); Z20.822 Contact with and (suspected) exposure to COVID-19; F10.920 Alcohol use, unspecified with intoxication, uncomplicated; F20.9 Schizophrenia, unspecified; F31.9 Bipolar disorder, unspecified; F15.10 Other stimulant abuse, uncomplicated; F12.10 Cannabis abuse, uncomplicated; I11.9 Hypertensive heart disease without heart failure; Z95.1 Presence of aortocoronary bypass graft; Z88.0 Allergy status to penicillin; Z88.6 Allergy status to analgesic agent; Z88.1 Allergy status to other antibiotic agents; Z79.899 Other long term (current) drug therapy
CPT/HCPCS: 36415; 80053; 80305; 80320; 81003; 84443; 85025; 87811; 96360; 96372; 99285; J1200; J3490; J7030; A6258

== ENCOUNTER 2022-07-01 13:32 | Emergency (ER) | payer MEDICAID ==
[~2022-07-01 13:32] MED LIST changes: -ALBU8.5H17 IH; +ALPR1TAB2 PO; -ALPR2TAB2 PO; -CHLO25CA10 PO; -HYDR-4353 PO; -KEP500T PO; -METO-384 PO; +METO75TA PO; +PREG150C PO
[2022-07-01 13:58] LABS: BASOPHILS # (AUTO) 0.1 X10'3 (0-0.2); BASOPHILS % (AUTO) 0.7 % (0-1); EOSINOPHILS # (AUTO) 0.1 X10'3 (0-0.9); EOSINOPHILS % (AUTO) 0.4 % (0-6); HEMATOCRIT 46.5 % (42.0-52.0); HEMOGLOBIN 15.6 g/dl (14.0-17.9); LYMPHOCYTES # (AUTO) 3.6 X10'3 (1.1-4.8); LYMPHOCYTES % (AUTO) 22.7 % (21-51); MEAN CORPUSCULAR HEMOGLOBIN 31.2 PG (27.0-31.0); MEAN CORPUSCULAR HGB CONC 33.5 g/dL (33.0-36.5); MEAN CORPUSCULAR VOLUME 93.1 FL (78-98); MEAN PLATELET VOLUME 7.6 FL (7.4-10.4); MONOCYTES # (AUTO) 1.9 X10'3 (0-0.9); MONOCYTES % (AUTO) 11.7 % (2-12); NEUTROPHILS # (AUTO) 10.3 X10'3 (1.8-7.7); NEUTROPHILS % (AUTO) 64.5 % (42-75); PLATELET COUNT 416 X10'3 (140-440); RED BLOOD COUNT 4.99 X10'6 (4.70-6.10)
[2022-07-01 14:16] LABS: ALANINE AMINOTRANSFERASE 26 U/L (12-78); ALBUMIN 3.4 G/DL (3.4-5.0); ALBUMIN/GLOBULIN RATIO 0.8 (1.1-1.5); ALKALINE PHOSPHATASE 80 IU/L (46-116); ANION GAP 7 (8-16); ASPARTATE AMINO TRANSFERASE 22 U/L (10-37); BILIRUBIN,TOTAL 0.6 MG/DL (0.1-1.0); BLOOD UREA NITROGEN 2 MG/DL (7-18); BUN/CREATININE RATIO 2.4 (5.4-32.0); CALCIUM 8.7 MG/DL (8.5-10.1); CHLORIDE 103 MMOL/L (99-107); CREATININE 0.85 MG/DL (0.60-1.10); GLUCOSE 147 MG/DL (70-104); MAGNESIUM 1.9 MG/DL (1.5-2.4); POTASSIUM 3.7 MMOL/L (3.5-5.1); SODIUM 140 MMOL/L (135-145); TOTAL CARBON DIOXIDE 29.8 MMOL/L (24-32); TOTAL PROTEIN 7.5 G/DL (6.4-8.2); eGFR > 90 ML/MIN
== END 2022-07-01 15:44 | disposition left against medical advice (07) ==
LOC: ER 13:33
DX: R55 Syncope and collapse (principal); Z53.21 Procedure and treatment not carried out due to patient leaving prior to being seen by health care provider
CPT/HCPCS: 36415; 80053; 83735; 83880; 84484; 85025; 93005

== ENCOUNTER 2022-08-19 20:06 | Emergency (ER) | payer MEDICAID ==
[~2022-08-19] VITALS: Ht 175.3 cm; Wt 67.8 kg
[2022-08-19 21:07] LABS: BASOPHILS # (AUTO) 0.1 X10'3 (0-0.2); BASOPHILS % (AUTO) 1.1 % (0-1); EOSINOPHILS # (AUTO) 0.1 X10'3 (0-0.9); EOSINOPHILS % (AUTO) 1.2 % (0-6); HEMATOCRIT 49.6 % (42.0-52.0); LYMPHOCYTES % (AUTO) 33.6 % (21-51); MEAN CORPUSCULAR HEMOGLOBIN 31.8 PG (27.0-31.0); MEAN CORPUSCULAR HGB CONC 34.2 g/dL (33.0-36.5); MEAN PLATELET VOLUME 7.9 FL (7.4-10.4); MONOCYTES # (AUTO) 0.7 X10'3 (0-0.9); NEUTROPHILS # (AUTO) 6.9 X10'3 (1.8-7.7); NEUTROPHILS % (AUTO) 58.1 % (42-75); PLATELET COUNT 335 X10'3 (140-440); RED BLOOD COUNT 5.34 X10'6 (4.70-6.10); RED CELL DISTRIBUTION WIDTH 13.7 % (11.5-14.5); WHITE BLOOD COUNT 11.9 X10'3 (4.5-11.0)
[2022-08-19 21:17] LABS: ALANINE AMINOTRANSFERASE 74 U/L (12-78); ALBUMIN 4.1 G/DL (3.4-5.0); ALKALINE PHOSPHATASE 86 IU/L (46-116); ANION GAP 8 (8-16); ASPARTATE AMINO TRANSFERASE 37 U/L (10-37); BILIRUBIN,TOTAL 0.4 MG/DL (0.1-1.0); BLOOD UREA NITROGEN 11 MG/DL (7-18); BUN/CREATININE RATIO 11.8 (5.4-32.0); CALCIUM 8.8 MG/DL (8.5-10.1); CHLORIDE 105 MMOL/L (99-107); CREATININE 0.93 MG/DL (0.60-1.10); GLUCOSE 105 MG/DL (70-104); POTASSIUM 3.8 MMOL/L (3.5-5.1); SODIUM 143 MMOL/L (135-145); TOTAL CARBON DIOXIDE 30.4 MMOL/L (24-32); TOTAL PROTEIN 8.1 G/DL (6.4-8.2); eGFR > 90 ML/MIN
[2022-08-19 21:24] LABS: MAGNESIUM 2.3 MG/DL (1.5-2.4)
--- NOTE | 2022-08-19 21:52 | NUR ---
PER PTS SISTER, CLEO, PT IS A KNOWN DRUG USER AND ETOH.
[2022-08-19 22:14] VITALS: BP 126/93
--- NOTE | 2022-08-19 22:38 | NUR ---
WENT TO CALL PT FOR A ROOM. HE SAID THAT HE WAS GOING TO GO HOME NOW, THAT [facility] AND THAT HIS RIDE IS HERE. HE SAID THAT HE FEELS FINE.
== END 2022-08-19 22:40 | disposition left against medical advice (07) ==
LOC: ER 20:06
DX: R55 Syncope and collapse (principal); Z53.21 Procedure and treatment not carried out due to patient leaving prior to being seen by health care provider
CPT/HCPCS: 36415; 71045; 80053; 83735; 83880; 84484; 85025; 93005; 99281

== ENCOUNTER 2022-08-26 10:01 | Inpatient (IN) | payer MEDICAID ==
[~2022-08-26] VITALS: Ht 177.8 cm; Wt 80.8 kg
[2022-08-26] MEDS ORDERED: ALPRAZolam 0.5mg tablet PO ONE (12:50)
[2022-08-26] MEDS ORDERED: normal saline 1000ML IV soln IV ONE (12:50)
[2022-08-26] MEDS ORDERED: chlordiazePOXIDE 25mg capsule PO ONE (12:50)
[2022-08-26 13:42] LABS: BASOPHILS # (AUTO) 0.1 X10'3 (0-0.2); BASOPHILS % (AUTO) 0.6 % (0-1); EOSINOPHILS # (AUTO) 0.1 X10'3 (0-0.9); EOSINOPHILS % (AUTO) 0.6 % (0-6); HEMATOCRIT 50.9 % (42.0-52.0); LYMPHOCYTES # (AUTO) 2.8 X10'3 (1.1-4.8); LYMPHOCYTES % (AUTO) 20.4 % (21-51); MEAN CORPUSCULAR HEMOGLOBIN 31.1 PG (27.0-31.0); MEAN CORPUSCULAR HGB CONC 33.5 g/dL (33.0-36.5); MEAN CORPUSCULAR VOLUME 92.8 FL (78-98); MEAN PLATELET VOLUME 7.9 FL (7.4-10.4); MONOCYTES % (AUTO) 7.1 % (2-12); NEUTROPHILS # (AUTO) 9.7 X10'3 (1.8-7.7); NEUTROPHILS % (AUTO) 71.3 % (42-75); PLATELET COUNT 254 X10'3 (140-440); RED BLOOD COUNT 5.48 X10'6 (4.70-6.10); RED CELL DISTRIBUTION WIDTH 13.4 % (11.5-14.5); WHITE BLOOD COUNT 13.7 X10'3 (4.5-11.0)
[2022-08-26 13:51] LABS: ALANINE AMINOTRANSFERASE 122 U/L (12-78); ALBUMIN 3.9 G/DL (3.4-5.0); ALKALINE PHOSPHATASE 84 IU/L (46-116); ANION GAP 11 (8-16); ASPARTATE AMINO TRANSFERASE 67 U/L (10-37); BILIRUBIN,TOTAL 0.7 MG/DL (0.1-1.0); BLOOD UREA NITROGEN 11 MG/DL (7-18); BUN/CREATININE RATIO 13.9 (5.4-32.0); CALCIUM 9.1 MG/DL (8.5-10.1); CHLORIDE 104 MMOL/L (99-107); CREATININE 0.79 MG/DL (0.60-1.10); GLUCOSE 96 MG/DL (70-104); POTASSIUM 4.2 MMOL/L (3.5-5.1); SODIUM 141 MMOL/L (135-145); TOTAL CARBON DIOXIDE 26.5 MMOL/L (24-32); TOTAL PROTEIN 7.8 G/DL (6.4-8.2); eGFR > 90 ML/MIN
[2022-08-26 14:01] LABS: ETHANOL 0.173 GM/DL (0.0-0.010)
[2022-08-26 14:32] LABS: CLARITY,URINE CLEAR (Clear); COLOR,URINE YELLOW (Yellow); GLUCOSE, URINE NEGATIVE (Neg); KETONES,URINE NEGATIVE (Neg); LEUKOCYTE ESTERASE ,URINE NEGATIVE (Neg); NITRITES, URINE NEGATIVE (Neg); OCCULT BLOOD,URINE NEGATIVE (Neg); PROTEIN,URINE NEGATIVE (Neg)
[2022-08-26 14:34] LABS: UA COLLECTION TYPE VOIDED
[2022-08-26] MEDS ORDERED: phenobarbital inj 260 MG in normal saline 100ml IV soln 98 ML IV STA (14:38)
[2022-08-26] MEDS ORDERED: thiamine 100mg/ml 2ml inj. IV ONE (14:40)
[2022-08-26] MEDS ORDERED: folic acid 1mg/0.2ml inj IV ONE (14:40)
[2022-08-26] MEDS ORDERED: ondansetron/PF 4mg/2ml inj IV ONE (14:40)
[2022-08-26 14:53] LABS: URINE AMPHETAMINE SCREEN NEGATIVE (Neg); URINE BARBITUATE SCREEN NEGATIVE (Neg); URINE BENZODIAZEPINES SCREEN NEGATIVE (Neg); URINE CANNABINOID SCREEN NEGATIVE (Neg); URINE COCAINE SCREEN NEGATIVE (Neg); URINE METHADONE SCREEN NEGATIVE (Neg); URINE OPIATE SCREEN NEGATIVE (Neg); URINE PHENCYCLIDINE SCREEN NEGATIVE (Neg)
[2022-08-26] MEDS ORDERED: phenobarbital inj 130 MG in normal saline 100ml IV soln 99 ML IV ONE ×2 (15:15→15:40)
--- NOTE | 2022-08-26 18:35 | NUR ---
Patient brought over to bed 22. Patient eats his dinner and then pulls covers over his face and is lying in bed appears to be sleeping.
[2022-08-26] MEDS ORDERED: FLEC100T35 PO (21:20)
[2022-08-26] MEDS ORDERED: ATI1T (21:20)
[2022-08-26] MEDS ORDERED: APIX5TAB3 (21:30)
--- NOTE | 2022-08-26 23:09 | NUR ---
Patient is sleeping in bed on right side sleeping. No distress noted.
[2022-08-26] MEDS ORDERED: CHLO25CA10 PO (23:45)
[2022-08-27] MEDS: chlordiazePOXIDE 25mg capsule PO SCH ×4 (01:02→20:48)
--- NOTE | 2022-08-27 01:13 | NUR ---
Awakened patient and administered Librium for ETOH withdrawal. Patient is sweaty upon awakening. VS WNL. Patient pulled covers over his head and went back to sleep. Patient with multiple facial tatoos.
--- NOTE | 2022-08-27 02:58 | NUR ---
Patient awakened and took his Librium and then went back to sleep.
--- NOTE | 2022-08-27 05:13 | NUR ---
Patient was awakened by another patient on the unit that was yelling. Patient yelled back at patient, but to no avail. Patient lightly snoring.
--- NOTE | 2022-08-27 06:30 | NUR ---
Pt is lying in bed on his right side, he appears to be sleeping.
[2022-08-27] MEDS ORDERED: APIX5TAB3 PO (08:43)
--- NOTE | 2022-08-27 09:10 | NUR ---
Pt is c/o anxiety, pt was asking about his heart medication. Pt is a smoker and would like a nicotine patch. Completed pt's med rec, had MD sign and faxed to pharmacy.
--- NOTE | 2022-08-27 09:19 | NUR ---
Pt's girlfriend is at bedside visiting.
--- NOTE | 2022-08-27 09:50 | NUR ---
Pt states that it's okay to share information with his sister and his girlfriend.
--- NOTE | 2022-08-27 09:51 | NUR ---
Pt got up to use the bathroom.
[2022-08-27] MEDS ORDERED: NICO-731 TOP (10:05)
--- NOTE | 2022-08-27 10:40 | NUR ---
[facility] at bedside evaluating the patient.
--- NOTE | 2022-08-27 10:52 | NUR ---
Amanda rivers in [facility] - 08/27/22 at 1053 by TAMMY Pt's 5150 hold is being upheld per [facility].
--- NOTE | 2022-08-27 10:54 | NUR ---
Pt is being placed on a [facility].
[2022-08-27] MEDS: apixaban 5mg tablet PO SCH ×2 (10:56→20:49)
[2022-08-27] MEDS: metoprolol tartrate 25mg tablet PO SCH ×2 (10:56→20:49)
[2022-08-27] MEDS: flecainide 50mg tablet PO SCH ×2 (10:57→20:49)
[2022-08-27] MEDS: ALPRAZolam 0.5mg tablet PO PRN ×2 (10:57→18:42)
[2022-08-27] MEDS: nicotine 14mg patch - 24hr TD SCH (11:00)
--- NOTE | 2022-08-27 12:40 | NUR ---
Pt is lying in bed on his left side, he appears to be sleeping.
[2022-08-27] MEDS ORDERED: chlordiazePOXIDE 25mg capsule PO SCH (13:00)
--- NOTE | 2022-08-27 13:34 | NUR ---
Pt is lying in bed on his left side with his blanket over his head.
--- NOTE | 2022-08-27 15:20 | NUR ---
Pt asked for a snack and was provided with one.
--- NOTE | 2022-08-27 17:31 | NUR ---
Pt's girlfriend is at bedside visiting.
--- NOTE | 2022-08-27 19:46 | NUR ---
Patient resting comfortably. Requested prn xanax at beginning of shift. Girlfriend was at bedside but has since left. Patient sleeping at this time
--- NOTE | 2022-08-27 21:52 | NUR ---
Meds given per orders, Patient cooperative. patient resting comfortably in bed.
[2022-08-27] MEDS ORDERED: ALPRAZolam 0.5mg tablet PO ONE (22:05)
--- NOTE | 2022-08-28 01:10 | NUR ---
Patient sleeping comfortably on back.
--- NOTE | 2022-08-28 01:53 | NUR ---
Patient woke up asking nurse about medications for opiate withdrawl. Patient stated he smoked Heroin 2 days prior to coming in to hospital. Tox screen neg for opiates. Patient also stated he uses suboxone at home but underwriter does not see prescription for it. Guideman told patient she would talk to ER . No further interventions at this time. Will continue to monitor, Patient is able to rest well throughout shift
--- NOTE | 2022-08-28 03:55 | NUR ---
Patient sleeping, will continue to monitor
[2022-08-28] MEDS: ALPRAZolam 0.5mg tablet PO PRN ×4 (04:56→19:19)
--- NOTE | 2022-08-28 07:07 | NUR ---
Received pt. sleeping in bed, respirations are even and unlabored.
[2022-08-28] MEDS: apixaban 5mg tablet PO SCH ×2 (08:34→19:42)
[2022-08-28] MEDS: chlordiazePOXIDE 25mg capsule PO SCH ×3 (08:34→19:43)
[2022-08-28] MEDS: flecainide 50mg tablet PO SCH ×2 (08:34→19:42)
[2022-08-28] MEDS: nicotine 14mg patch - 24hr TD SCH (08:35)
[2022-08-28] MEDS: metoprolol tartrate 25mg tablet PO SCH ×2 (08:36→19:43)
--- NOTE | 2022-08-28 09:00 | NUR ---
1:1 was completed at bedside, pt. currently reports S/I, however denies any current plan. He reports his last suicide attempt was in 20ll during which he overdosed and slit his wrists. Pt. states, "They had to resuscitate me." Pt. is hoping to attend rehabilitation and get sober.
--- NOTE | 2022-08-28 09:39 | NUR ---
Pt. is laying in bed sleeping at this time, no s/s of distress noted.
--- NOTE | 2022-08-28 11:07 | NUR ---
Pt. awoke and c/o anxiety r/t "Nightmares." He requested PRN Xanax and this was administered.
--- NOTE | 2022-08-28 12:31 | NUR ---
Pt. has a family member visiting at bedside at this time.
--- NOTE | 2022-08-28 13:11 | NUR ---
Pt's visitor remains at bedside at this time.
--- NOTE | 2022-08-28 15:00 | NUR ---
Pt. is on the telephone at this time, acting appropriately.
[2022-08-28] MEDS ORDERED: CLON0.1T2 PO (16:56)
--- NOTE | 2022-08-28 17:12 | NUR ---
Pt. is sleeping at this time, rr are even and unlabored.
--- NOTE | 2022-08-28 17:28 | NUR ---
Pt. reported taking Clonidine 0.1mg at HS and this was verified by extended medication reconciliation. This was endorsed to Dr. Henry, and medication was added to Med Recc.
--- NOTE | 2022-08-28 18:31 | NUR ---
Patient sitting in bed and eating dinner. No distress observed. Continue to monitor.
--- NOTE | 2022-08-28 18:57 | NUR ---
Patient came to desk and stated that if he didn't get Haldol he would leave and securiety will need to show up to stop him. And he's trying really hard to be nice.-MARCIA, EMT
--- NOTE | 2022-08-28 19:25 | NUR ---
Patient slowly walked out but did not really make a run for it. RN walking with patient and patient tried doors but not any that led to outside. Patient pushed the elevator button and RN stopped the doors from closing. Security arrived and patient was escorted back to his room. Patient was calm and polite with RN. Continue to monitor.
[2022-08-28] MEDS: cloNIDine 0.1 mg tablet PO SCH ×2 (19:41→21:00)
[2022-08-28] MEDS ORDERED: haloperidol lactate 5mg/ml inj IM ONE (19:50)
--- NOTE | 2022-08-28 20:59 | NUR ---
Patient stating he is hearing voices and needs Haldol. RN spoke to Jojo Salgado NP, who was going to order Haldol but it was listed as an allergy. Patient states he is not allergic to Haldol and he does not know why this is on his list. RN clarified with patient that he was not allergic. Patient stated several times he has never had a reaction to Haldol. Patient stated he wants an injection because it works better. Jojo fuller and RN gave patient and injection of Haldol. Continue to monitor.
--- NOTE | 2022-08-28 21:11 | NUR ---
RN gave patient a sandwich for a snack. No distress observed. Continue to monitor.
--- NOTE | 2022-08-28 22:09 | NUR ---
Patient sleeping supine. No distress observed. Continue to monitor.
--- NOTE | 2022-08-28 23:59 | NUR ---
Patient continues to sleep. No distress observed. Continue to monitor.
--- NOTE | 2022-08-29 02:19 | NUR ---
Patient sleeping on left side. No distress observed. Continue to monitor.
--- NOTE | 2022-08-29 03:25 | NUR ---
Patient continues to sleep on his left side. No distress observed. Continue to monitor.
--- NOTE | 2022-08-29 05:18 | NUR ---
Patient sleeping on his right side. No distress observed. Continue to monitor.
--- NOTE | 2022-08-29 06:36 | NUR ---
Patient appears to be sleeping. His head is covered, and he's not showing s/sx of distress.
[2022-08-29] MEDS: metoprolol tartrate 25mg tablet PO SCH ×2 (08:00→20:09)
--- NOTE | 2022-08-29 08:44 | NUR ---
Patient continues to sleep. His breakfast is waiting for when he gets up.
[2022-08-29] MEDS: nicotine 14mg patch - 24hr TD SCH (09:24)
[2022-08-29] MEDS: cloNIDine 0.1 mg tablet PO SCH ×2 (09:25→21:00)
[2022-08-29] MEDS: apixaban 5mg tablet PO SCH ×2 (09:26→20:08)
[2022-08-29] MEDS: chlordiazePOXIDE 25mg capsule PO SCH ×3 (09:26→20:08)
[2022-08-29] MEDS: flecainide 50mg tablet PO SCH ×2 (09:32→20:08)
[2022-08-29] MEDS: ALPRAZolam 0.5mg tablet PO PRN ×3 (09:32→15:13)
--- NOTE | 2022-08-29 10:03 | NUR ---
Patient has eaten his breakfast and was compliant with AM meds. He asked about placement, wanting to know when he's placed. Patient has gone back to sleep.
--- NOTE | 2022-08-29 12:46 | NUR ---
Patient has eaten lunch, made some phone calls, received his Librium, and laid back down for a nap.
--- NOTE | 2022-08-29 13:40 | NUR ---
Patient appears to be sleeping. His head is covered, and he's not showing s/sx of distress.
--- NOTE | 2022-08-29 15:01 | NUR ---
Patient is awake and making phone calls. He has been calm and cooperative all day. Patient asked for a sandwich, which was provided.
--- NOTE | 2022-08-29 15:16 | NUR ---
Patient showing s/sx of anxiety after phone call. Xanax provided with good relief.
[2022-08-29] MEDS ORDERED: ziprasidone IM 20mg inj **IM only IM ONE (17:25)
--- NOTE | 2022-08-29 17:51 | NUR ---
Patient was getting agitated. Received orders for Geodon 20mg IM now, then Geodon 20mg PO HS. Patient accepted medication with no problem.
--- NOTE | 2022-08-29 19:09 | NUR ---
Patient visited with girlfriend at bedside at shift change. She has now departed and patient is sleeping on his right side, in view from nurses station.
--- NOTE | 2022-08-29 20:14 | NUR ---
Cameliabaldo is compliant with nightime medications. He returns to sleep.
--- NOTE | 2022-08-29 22:05 | NUR ---
Patient is awake, sitting up in bed. No distress.
[2022-08-29] MEDS ORDERED: ziprasidone 20mg capsule PO SCH (22:18)
--- NOTE | 2022-08-29 23:14 | NUR ---
Patient is resting in a prone position in his bed. In view from nurses station.
--- NOTE | 2022-08-30 01:30 | NUR ---
This patient has self repositioned in bed multiple times. He is restless secondary to a disturbance and loud screaming by another patient. The patient awoke and yelled at the other patient "shut up!" When the unit quieted this patient returned to sleep.
--- NOTE | 2022-08-30 02:20 | NUR ---
Patient is sleeping quietly on his left side.
--- NOTE | 2022-08-30 03:31 | NUR ---
The patient continues to sleep quietly. No distress.
--- NOTE | 2022-08-30 04:28 | NUR ---
The patient is sleeping quietly.
--- NOTE | 2022-08-30 05:50 | NUR ---
The patient is still sleeping quietly on his left side. Warm blankets were placed.
[2022-08-30] MEDS: ALPRAZolam 0.5mg tablet PO PRN ×4 (06:39→20:07)
--- NOTE | 2022-08-30 07:31 | NUR ---
Patient ate a full breakfast. He complains of some depression. He endorses S/I with a plan to cut his own throat. Patient denies H/I. Patient is well oriented, his color good, skin is warm and dry. Patient denies audible or visual hallucinations. Patient is medication compliant. Patient exhibits clear speach with a regular rhythm.
[2022-08-30] MEDS: nicotine 14mg patch - 24hr TD SCH ×3 (08:00→20:06)
[2022-08-30] MEDS: metoprolol tartrate 25mg tablet PO SCH ×2 (08:00→20:08)
[2022-08-30] MEDS: flecainide 50mg tablet PO SCH ×2 (10:34→20:14)
[2022-08-30] MEDS: apixaban 5mg tablet PO SCH ×2 (10:38→20:07)
[2022-08-30] MEDS: chlordiazePOXIDE 25mg capsule PO SCH ×3 (10:38→20:07)
--- NOTE | 2022-08-30 10:52 | NUR ---
Patient is sleeping quietly. He self repositions in bed.
--- NOTE | 2022-08-30 10:57 | NUR ---
This patient was re-evaluated by [facility] this am. A 5150 was re-written for DTS.
--- NOTE | 2022-08-30 11:37 | NUR ---
VAUGHN Peña from [facility] in [place] called and requested report on this patient. The patient will be considered for admission at that facility, possibly tomorrow.
--- NOTE | 2022-08-30 11:47 | NUR ---
Patient has self repositioned onto his right side, knees flexed. He remains sleeping. Pulse is regular. Normal resp. Good color.
--- NOTE | 2022-08-30 12:40 | NUR ---
Patient ate a full lunch, he has returned to sleep. No distress. Patient is well oriented.
--- NOTE | 2022-08-30 13:44 | NUR ---
Patient is now sleeping on his right side. No distress.
--- NOTE | 2022-08-30 14:10 | NUR ---
Patient is sleeping quietly in a supine position. No distress.
--- NOTE | 2022-08-30 15:17 | NUR ---
This patient just finished a call from his girlfriend. He states she told him that she "is moving out." Patient is quite upset. This brief writer used calming measures. Patients was given xanax and librium.
--- NOTE | 2022-08-30 16:44 | NUR ---
The patient is sleeping in a supine position. He has covered himself with a blanket. Patient is in a direct view from the nurses station.
[2022-08-30] MEDS ORDERED: diphenhydrAMINE 50 mg/ml inj ONE (17:04)
[2022-08-30] MEDS ORDERED: metoclopramide 5 mg/ml inj IM ONE (17:05)
[2022-08-30] MEDS ORDERED: diphenhydrAMINE 50 mg/ml inj IM ONE (17:05)
[2022-08-30] MEDS ORDERED: haloperidol lactate 5mg/ml inj ONE (17:05)
[2022-08-30] MEDS ORDERED: haloperidol lactate 5mg/ml inj IM ONE (17:05)
[2022-08-30] MEDS ORDERED: LORazepam 2 mg/ml vial ONE (17:06)
--- NOTE | 2022-08-30 17:34 | NUR ---
This patient attempted to elope, he exhibited labile behavior. Patient was escorted back by security whom he resisted and yelled at. Once at bedside security released patient. The patient threw objects randomly. Haldol 10 mg IM, Benadryl 50 mg IM, and Reglan 10 mg IM were all given.
--- NOTE | 2022-08-30 17:39 | NUR ---
This patient is laying in bed, he is cooperative now. Security is released.
--- NOTE | 2022-08-30 19:35 | NUR ---
The patient ate 100% of his evening meal. He was wanting to have his medications now with food and he was made aware that it was too early and he accepted that and went back to lay on his bed.
[2022-08-30] MEDS: cloNIDine 0.1 mg tablet PO SCH (20:07)
--- NOTE | 2022-08-30 21:21 | NUR ---
The patient is asleep on his bed
--- NOTE | 2022-08-30 22:00 | NUR ---
The patient has been accepted at [facility] for transfer on 08/31/22
--- NOTE | 2022-08-30 22:14 | NUR ---
The patient appears to be sleeping
[2022-08-30] MEDS ORDERED: QUEtiapine 25mg tablet PO STA (23:16)
--- NOTE | 2022-08-30 23:17 | NUR ---
The patient is stating that if he doesn't get something for sleep he will be agitated. Discussed with Naomi AMADOR and orders received.
--- NOTE | 2022-08-31 00:31 | NUR ---
The patient appears to be back asleep
[2022-08-31] MEDS ORDERED: QUEtiapine 25mg tablet PO STA (01:01)
--- NOTE | 2022-08-31 01:14 | NUR ---
The patient has been awake for the last 30 minutes and upset about being awakened by female peer. Dr Ny made aware and Seroquel 100mg given
--- NOTE | 2022-08-31 02:56 | NUR ---
The patient appears to be sleeping
--- NOTE | 2022-08-31 04:47 | NUR ---
The patient appears to be sleeping
--- NOTE | 2022-08-31 05:19 | NUR ---
The patient appears to be sleeping
[2022-08-31] MEDS: ALPRAZolam 0.5mg tablet PO PRN ×2 (05:55→11:16)
--- NOTE | 2022-08-31 07:00 | NUR ---
Pt resting comfortably, rr even and unlabored.
[2022-08-31] MEDS: flecainide 50mg tablet PO SCH ×2 (08:22→20:30)
[2022-08-31] MEDS: apixaban 5mg tablet PO SCH ×2 (08:22→20:32)
[2022-08-31] MEDS: chlordiazePOXIDE 25mg capsule PO SCH ×2 (08:22→12:43)
[2022-08-31] MEDS: metoprolol tartrate 25mg tablet PO SCH ×2 (08:24→20:32)
[2022-08-31] MEDS ORDERED: nicotine 14mg patch - 24hr TD ONE (08:40)
--- NOTE | 2022-08-31 08:48 | NUR ---
PT IS NOT TO TALK TO GIRL FRIEND ANYMORE, SHE UPSETS HIM AND MAKES HIM FEEL S.I.
--- NOTE | 2022-08-31 09:04 | NUR ---
Pt was talking on phone when show card writer approached. Pt was having increased anxiety and SI during and after conversation with "girl friend." When pt got off phone he stated "If I had a car I would drive it off a [place] just because of her." "She is a f_ Addendum: 08/31/22 at 0907 by CAMMIE "f...ing bitch!." Pt states "The reason I'm here is to get help." Pt told show card writer "I will talk to anyone, but her." Pt was compliant with care and medication. Pt states he hasn't had a BM for several days. Some tenderness, BS x 4. Pt declined intervention at this time.
--- NOTE | 2022-08-31 11:35 | NUR ---
PT TRANSFERRED TO [facility]. PT A&O X4. PT LEFT WITH ALL PERSONAL BELONGINGS. ORIGINAL 5150 AND REVAL,COPY OF BELONGINGS LIST WITH TECH. PT HAS MEDICATION IN PHARMACY, DOCUMENTATION ALSO SENT.
[2022-08-31 11:40] VITALS: BP 108/72
[2022-08-31] MEDS ORDERED: mag hydrox/Alum hydrox/simeth 30ml oral suspension PO PRN (11:45)
[2022-08-31] MEDS ORDERED: acetaminophen 325mg tablet PO PRN (11:45)
[2022-08-31] MEDS ORDERED: loperamide 2mg capsule PO PRN (11:45)
[2022-08-31] MEDS: ALPRAZolam 0.5mg tablet PO SCH ×2 (12:57→20:32)
[2022-08-31] MEDS: acetaminophen 325mg tablet PO PRN (13:00)
--- NOTE | 2022-08-31 16:42 | NUR ---
ADMIT NOTE: Pt transferred from ER overflow to [facility] in w/c accompanied by rimidi and D4P at 1140. Pt was cooperative with safety check, skin check, shower, and admission process. Pt was BIB family to [facility] ED on 08/26/22 for making suicidal statements while intoxicated. Pt has a history of previous suicide attempts. BAL was 0.173. Tox screen was negative for other substances although pt reports using Fentanyl 2 days prior to coming to the hospital. Pt reports that he is supposed to be on Suboxone. Per report/5150 , pt was endorsing SI with a plan to cut his wrists and could not contract for safety. Pt has a Hx of polysubstance abuse as well as anxiety, depression, Bipolar Disorder, Schizophrenia, ADHD, A-fib, SVT, HF, coronary ablation, pacemaker placement, asthma, and bronchitis. Pt would like to go to rehab. Pt is on CIWA Q8H, call MD for score >10. Pt c/o FUNG, shakiness, nausea, and anxiety. He scored a 10 on the CIWA scale at 1216. He was given Librium 50 mg which brought his CIWA score down to a 3. Addendum: 08/31/22 at 1656 by Dinora Frederick RN (Lee) Pt has a Hx of withdrawal seizures. Pt's girlfriend broke up with him while he was down in the ER Overflow. Addendum: 08/31/22 at 1741 by Dinora Frederick RN (Lee) Correction: Call for CIWA score > 8 not 10.
[2022-08-31 20:00] VITALS: BP 113/77
[2022-08-31] MEDS: cloNIDine 0.1 mg tablet PO SCH (20:32)
[2022-08-31] MEDS: quetiapine 100mg tablet PO PRN (21:07)
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
[2022-09-01] MEDS: apixaban 5mg tablet PO SCH ×2 (07:53→20:09)
[2022-09-01] MEDS: flecainide 50mg tablet PO SCH ×2 (07:53→20:09)
[2022-09-01] MEDS: metoprolol tartrate 25mg tablet PO SCH ×2 (07:54→20:10)
[2022-09-01] MEDS: ALPRAZolam 0.5mg tablet PO SCH ×3 (07:54→20:09)
[2022-09-01] MEDS: acetaminophen 325mg tablet PO PRN (07:54)
[2022-09-01] MEDS: nicotine 14mg patch - 24hr TD SCH (07:56)
[2022-09-01 08:00] VITALS: BP 136/84
[2022-09-01 09:06] LABS: HEMOGLOBIN A1C 5.2 % (4.5-6.2)
[2022-09-01 09:07] LABS: CHOL/HDL RATIO 5.7 (0.00-4.99); CHOLESTEROL 267 MG/DL (0-200); HDL CHOLESTEROL 47 MG/DL (35-60); LDL CHOLESTEROL 183 MG/DL (50-100); TRIGLYCERIDES 265 MG/DL (20-135)
[2022-09-01 12:02] VITALS: BP 107/70
[2022-09-01] MEDS ORDERED: LORazepam 1 MG tablet PO ONE (15:20)
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
--- NOTE | 2022-09-01 17:22 | NUR ---
Nursing Progress Note: Problem: Pt was BIB family to [facility] ED on 08/26/22 for making suicidal statements while intoxicated. Pt has a history of previous suicide attempts. Pts plan was to cut his wrists and could not contract for safety. Pt has a Hx of polysubstance abuse as well as anxiety, depression, Bipolar Disorder, Schizophrenia, ADHD, A-fib, SVT, HF, coronary ablation, pacemaker placement, asthma, and bronchitis. Interventions: 1:1 assessment, establishment of rapport, therapeutic conversation, active listening, medication administration/education/monitoring, CIWA per orders, ensured contract for safety, behavior monitoring and intervention as needed; discussion of alternate coping mechanisms to medications, provided distraction, redirection, limit setting, positive reinforcement, and Q 15 minute safety checks. Response: Pt was up before breakfast socializing with peers in the dining room. Pt was cooperative with his medications. Pt was given PRN Tylenol 650 mg at 0754 for generalized pain with good effect. Pt c/o difficulty falling asleep last night, pt c/o nightmares, pt c/o difficulty focusing. Pt rated his depression at a 10/10, when asked about SI, pt replied, "not right this minute." Pt reports AH and VH; "sometimes I hear voices" and "shadowy figures and weird blurry dots." "I think I have a split personality disorder or something because there's this herve named Callum who talks to me all the time." Pt states this has been going on for the past 3 months or so. Pt wants the doctor to order Adderall for his ADHD. Pt reports that he was on Adderall from age [age] and it was helpful. Pt would like his antianxiety medication increased and would like to be started on an antidepressant. Pt seems to be changing his mind about going to rehab. Pt reports that his sister said he could stay with her but when he drinks he can't stay there. Pt reports that he graduated from [employer] in 2013 and was sober from [id number]. Pt states he decided he was going to have a beer one day and he's been going full force since then. 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 Pt c/o increased anxiety around 1200. He scored an 11 on the CIWA scale for c/o anxiety, agitation, mild sweating, and slight tremor. Notified Dr Reich who pointed out that pt's demeanor and VS did not match his statements. Dr Reich instructed to give him his routine 1300 Xanax 1 mg. Pt kept asking it the doctor had changed his orders periodically after that. Suggested distraction techniques for anxiety instead of medications such as radio headphones, TV, writing, or drawing. Pt did sit down to watch a movie and socialize with peers. At around 1515, pt approached this nurse to report that he was really getting anxious and agitated and really needed some medicine or he was going to leave. Reminded pt that he was on a 5150 hold and would not be allowed to leave. Pt indicated that he would rather try so security could be called and he could get a shot of something that would help him. Notified Dr Reich of pt's statements. A one time dose of Ativan 2 mg was ordered and given at 1521 with good effect. Around 1625, pt was discovered in a female peer's bathroom with the female peer. See previous incident note. Plan: Crisis interruption and stabilization in a safe and therapeutic environment.
[2022-09-01 19:31] VITALS: BP 138/81
[2022-09-01] MEDS: cloNIDine 0.1 mg tablet PO SCH (20:09)
[2022-09-01] MEDS: quetiapine 100mg tablet PO PRN (20:13)
[2022-09-01] MEDS ORDERED: LORazepam 1 MG tablet PO PRN (20:45)
--- NOTE | 2022-09-01 22:25 | NUR ---
Nursing Progress Note: Problem: Pt was BIB family to [facility] ED on 08/26/22 for making suicidal statements while intoxicated. Pt has a history of previous suicide attempts. Pts plan was to cut his wrists and could not contract for safety. Pt has a Hx of polysubstance abuse as well as anxiety, depression, Bipolar Disorder, Schizophrenia, ADHD, A-fib, SVT, HF, coronary ablation, pacemaker placement, asthma, and bronchitis. Interventions: One to one with the patient. Assessed for ETOH withdrawals. Assessed for severity of depressive symptoms and self harm risk. Reviewed his evening medications with him. He was given prn Seroquel per his request. He was assessed for continued presence of psychotic symptoms. Response: The patient denied having any S/S of withdrawals or cravings. He denied hearing voices and did not appear to be responding to internal stimuli during the evening assessment. He stated that he wanted to be discharged tomorrow. He denied having side effects to his medications. When asked what his discharge plans were he stated that he wanted to get a Uber to his sister's house and stay with her. He stated that he would follow up with [facility]. When asked about Rehab he stated that his booking officer is working on getting him into rehab. He stated that he had faxed an application to get into [facility] treatment program. She denied active or passive suicidal thoughts. He denied mood swings. Plan: Continue hospitalization.
[2022-09-02 05:23] LABS: ALANINE AMINOTRANSFERASE 151 U/L (12-78); ALBUMIN/GLOBULIN RATIO 1.1 (1.1-1.5); ALKALINE PHOSPHATASE 80 IU/L (46-116); ANION GAP 10 (8-16); ASPARTATE AMINO TRANSFERASE 81 U/L (10-37); BILIRUBIN,TOTAL 0.3 MG/DL (0.1-1.0); BLOOD UREA NITROGEN 19 MG/DL (7-18); BUN/CREATININE RATIO 19.8 (5.4-32.0); CALCIUM 9.2 MG/DL (8.5-10.1); CHLORIDE 104 MMOL/L (99-107); CREATININE 0.96 MG/DL (0.60-1.10); GLUCOSE 89 MG/DL (70-104); POTASSIUM 3.9 MMOL/L (3.5-5.1); SODIUM 140 MMOL/L (135-145); TOTAL CARBON DIOXIDE 26.1 MMOL/L (24-32); TOTAL PROTEIN 7.8 G/DL (6.4-8.2); eGFR > 90 ML/MIN
[2022-09-02] MEDS: flecainide 50mg tablet PO SCH (07:54)
[2022-09-02] MEDS: apixaban 5mg tablet PO SCH (07:54)
[2022-09-02] MEDS: metoprolol tartrate 25mg tablet PO SCH (07:55)
[2022-09-02] MEDS: nicotine 14mg patch - 24hr TD SCH (07:56)
[2022-09-02 08:00] VITALS: BP 108/47
[2022-09-02] MEDS ORDERED: LORazepam 1 MG tablet PO SCH (08:00)
[2022-09-02] MEDS ORDERED: folic acid 1mg tablet PO SCH (08:00)
[2022-09-02] MEDS ORDERED: multivitamins, therapeutics tablet PO SCH (08:00)
[2022-09-02] MEDS ORDERED: thiamine 100mg tablet PO SCH (08:00)
[2022-09-02] MEDS ORDERED: NALT50TA PO (11:49)
[2022-09-02] MEDS ORDERED: ARIP5TAB14 PO (11:49)
[2022-09-02] MEDS ORDERED: QUET200T31 PO (11:49)
[2022-09-02] MEDS ORDERED: thiamine tablet PO (11:49)
[2022-09-02] MEDS ORDERED: BUPR-317 PO (11:49)
[2022-09-02] MEDS ORDERED: MULT-25 PO (11:49)
[2022-09-02] MEDS ORDERED: APIX5TAB3 PO (11:49)
[2022-09-02] MEDS ORDERED: ALPR1TAB2 PO (11:49)
--- NOTE | 2022-09-02 12:15 | NUR ---
Pt transported to his sisters place of business by [place] office and then will go home with her. Pt reports, "I am now sober x11 days and on the right medications." He plans to go to a "rehab program." Education provided on resources for sobriety and encouraged pt to find an AA sponsor. Pt agreed to call AA to find someone. Pt left with all his personal belongings in a backpack. He will F/U with [facility]. He declined smoking cessation referral or education.
[2022-09-02 13:28] LABS: HBSAG SCREEN Negative (Negative); HEP B CORE AB, TOT Negative (Negative)
== END 2022-09-02 12:13 | disposition home or self-care (01) | DRG 753 ==
LOC: ER 10:02 → ADULT MH 08-30 21:45
PROVIDERS: ADMIT Psychiatry & Neurology Psychiatry; ATTEND Psychiatry & Neurology Psychiatry
DX: F39 Unspecified mood [affective] disorder (principal); F33.1 Major depressive disorder, recurrent, moderate; I42.9 Cardiomyopathy, unspecified; R45.851 Suicidal ideations; F10.229 Alcohol dependence with intoxication, unspecified; F12.20 Cannabis dependence, uncomplicated; Z20.822 Contact with and (suspected) exposure to COVID-19; F13.10 Sedative, hypnotic or anxiolytic abuse, uncomplicated; F17.210 Nicotine dependence, cigarettes, uncomplicated; F41.9 Anxiety disorder, unspecified; F90.9 Attention-deficit hyperactivity disorder, unspecified type; I10 Essential (primary) hypertension; I48.91 Unspecified atrial fibrillation; Z59.00 Homelessness unspecified; Z79.899 Other long term (current) drug therapy; Z81.8 Family history of other mental and behavioral disorders; Z82.49 Family history of ischemic heart disease and other diseases of the circulatory system; Z86.711 Personal history of pulmonary embolism; Z88.0 Allergy status to penicillin; Z90.81 Acquired absence of spleen; Z95.0 Presence of cardiac pacemaker; Z56.0 Unemployment, unspecified; Z88.8 Allergy status to other drugs, medicaments and biological substances
CPT/HCPCS: 36415; 80053; 80061; 80305; 80320; 81003; 83036; 84443; 85025; 86704; 86705; 86706; 87081; 87340; 87811; 96361; 96365; 96366; 96375; 99285; J2405; J2560; J3411; J3490; J7030

== ENCOUNTER 2022-09-05 01:23 | Emergency (ER) | payer MEDICAID ==
[~2022-09-05] VITALS: Ht 175.3 cm; Wt 81.8 kg
[~2022-09-05 01:23] MED LIST changes: +APIX5TAB3 PO; +ARIP5TAB14 PO; +BUPR-317 PO; +CLON0.1T2 PO; -FLEC100T2 PO; +FLEC100T35 PO; +MULT-25 PO; +NALT50TA PO; +NICO-731 TOP; -PREG150C PO; +QUET200T31 PO; +thiamine tablet PO
[2022-09-05 01:47] VITALS: BP 120/71
== END 2022-09-05 02:22 | disposition left against medical advice (07) ==
LOC: ER 01:24
DX: R45.851 Suicidal ideations (principal); I10 Essential (primary) hypertension; F12.90 Cannabis use, unspecified, uncomplicated; F15.10 Other stimulant abuse, uncomplicated; Z88.0 Allergy status to penicillin; Z88.1 Allergy status to other antibiotic agents; Z88.8 Allergy status to other drugs, medicaments and biological substances; Z56.0 Unemployment, unspecified
CPT/HCPCS: 99285

== ENCOUNTER 2022-09-17 03:00 | Emergency (ER) | payer MEDICAID ==
[~2022-09-17] VITALS: Ht 177.8 cm; Wt 85.8 kg
[2022-09-17 03:20] VITALS: BP 114/79
== END 2022-09-17 05:32 | disposition left against medical advice (07) ==
LOC: ER 03:01
DX: F10.129 Alcohol abuse with intoxication, unspecified (principal); Z53.21 Procedure and treatment not carried out due to patient leaving prior to being seen by health care provider; Y90.8 Blood alcohol level of 240 mg/100 ml or more
CPT/HCPCS: 99281

== ENCOUNTER 2022-09-26 20:00 | Emergency (ER) | payer MEDICAID ==
[~2022-09-26] VITALS: Ht 177.8 cm; Wt 86.2 kg
[2022-09-26 20:35] VITALS: BP 121/79
[2022-09-26] MEDS ORDERED: LIDOcaine 1% W/epiNEPHrine 1:100,000 20ml vial SQ ONE (21:10)
[2022-09-26] MEDS ORDERED: LIDOCAINE 2%/EPI 1:100,000 inj. Multi-dose 20 ML VIAL SQ ONE (21:13)
[2022-09-26] MEDS ORDERED: LIDOcaine 1% w/EPI 1:100,000 30ml vial (MDV) SQ ONE (21:25)
[2022-09-26] MEDS ORDERED: sulfamethoxazole/trimethoprim DS (800/160mg) tablet PO ONE (22:00)
[2022-09-26] MEDS ORDERED: cephalexin 500mg capsule PO ONE (22:00)
[2022-09-26] MEDS ORDERED: CEPH500C2 PO (22:05)
[2022-09-26] MEDS ORDERED: SULF1TAB49 PO (22:05)
== END 2022-09-26 22:22 | disposition home or self-care (01) ==
LOC: ER 20:01
DX: L02.414 Cutaneous abscess of left upper limb (principal); L03.112 Cellulitis of left axilla; I10 Essential (primary) hypertension; F12.90 Cannabis use, unspecified, uncomplicated; Z88.8 Allergy status to other drugs, medicaments and biological substances; Z88.0 Allergy status to penicillin; Z88.1 Allergy status to other antibiotic agents; Z56.0 Unemployment, unspecified
CPT/HCPCS: 10060; 99283; J7030; A6449

== ENCOUNTER 2022-10-20 22:16 | Emergency (ER) | payer MEDICAID ==
[~2022-10-20] VITALS: Ht 175.3 cm; Wt 89.1 kg
[2022-10-20 22:29] VITALS: BP 116/80
[2022-10-20] MEDS ORDERED: DOXYCYCLINE 100MG CAPSULE PO STA (23:07)
[2022-10-20] MEDS ORDERED: ondansetron 4mg rapidly disintigrating tab PO ONE (23:10)
[2022-10-20] MEDS ORDERED: HYDROcodone/acetaminophen 5mg/325mg tablet PO ONE (23:10)
[2022-10-20] MEDS ORDERED: DOXY100C76 PO (23:17)
[2022-10-20] MEDS ORDERED: HYDR-3965 PO (23:17)
[2022-10-20] MEDS ORDERED: IBUP-1984 PO (23:17)
[2022-10-20] MEDS ORDERED: CLIN35GE8 TOP (23:17)
[2022-10-20] MEDS ORDERED: ONDA8TAB13 PO (23:17)
== END 2022-10-20 23:50 | disposition home or self-care (01) ==
LOC: ER 22:17
DX: L73.2 Hidradenitis suppurativa (principal); I10 Essential (primary) hypertension; F12.90 Cannabis use, unspecified, uncomplicated; Z56.0 Unemployment, unspecified; Z88.0 Allergy status to penicillin; Z88.1 Allergy status to other antibiotic agents; Z88.8 Allergy status to other drugs, medicaments and biological substances
CPT/HCPCS: 99284

== ENCOUNTER 2022-11-28 17:45 | Emergency (ER) | payer MEDICAID ==
[~2022-11-28] VITALS: Ht 172.7 cm; Wt 84.1 kg
[~2022-11-28 17:45] MED LIST changes: -ALPR1TAB2 PO; +ALPR1TAB7 PO; -ARIP5TAB14 PO; +ATOR20TA66 PO; -BUPR-317 PO; -CLON0.1T2 PO; +FENO145T46 PO; -MULT-25 PO; -NALT50TA PO; +NICO-631 TD; -NICO-731 TOP; +PANT40TA54 PO; +PREG150C46 PO; -QUET200T31 PO; -thiamine tablet PO
[2022-11-28 18:09] LABS: BASOPHILS # (AUTO) 0.1 X10'3 (0-0.2); BASOPHILS % (AUTO) 1.1 % (0-1); EOSINOPHILS # (AUTO) 0.1 X10'3 (0-0.9); EOSINOPHILS % (AUTO) 1.1 % (0-6); HEMATOCRIT 46.8 % (42.0-52.0); LYMPHOCYTES # (AUTO) 3.4 X10'3 (1.1-4.8); LYMPHOCYTES % (AUTO) 27.9 % (21-51); MEAN CORPUSCULAR HEMOGLOBIN 30.2 PG (27.0-31.0); MEAN CORPUSCULAR HGB CONC 34.1 g/dL (33.0-36.5); MEAN CORPUSCULAR VOLUME 88.6 FL (78-98); MEAN PLATELET VOLUME 8.3 FL (7.4-10.4); MONOCYTES # (AUTO) 1.1 X10'3 (0-0.9); MONOCYTES % (AUTO) 8.9 % (2-12); NEUTROPHILS # (AUTO) 7.5 X10'3 (1.8-7.7); PLATELET COUNT 264 X10'3 (140-440); RED BLOOD COUNT 5.28 X10'6 (4.70-6.10); RED CELL DISTRIBUTION WIDTH 12.6 % (11.5-14.5); WHITE BLOOD COUNT 12.3 X10'3 (4.5-11.0)
[2022-11-28 18:28] LABS: ALBUMIN/GLOBULIN RATIO 1.3 (1.1-1.5); ALKALINE PHOSPHATASE 74 IU/L (46-116); ANION GAP 6 (8-16); BILIRUBIN,TOTAL 0.8 MG/DL (0.1-1.0); BLOOD UREA NITROGEN 16 MG/DL (7-18); BUN/CREATININE RATIO 15.1 (10.0-20.0); CHLORIDE 103 MMOL/L (99-107); CREATININE 1.06 MG/DL (0.60-1.10); SODIUM 137 MMOL/L (135-145); TOTAL PROTEIN 7.2 G/DL (6.4-8.2); eGFR 82 ML/MIN
[2022-11-28 18:53] LABS: ALANINE AMINOTRANSFERASE 67 U/L (12-78); ASPARTATE AMINO TRANSFERASE 28 U/L (10-37); GLUCOSE 118 MG/DL (70-104)
[2022-11-28 20:55] LABS: BASOPHILS # (AUTO) 0.1 X10'3 (0-0.2); BASOPHILS % (AUTO) 1.2 % (0-1); EOSINOPHILS # (AUTO) 0.1 X10'3 (0-0.9); EOSINOPHILS % (AUTO) 0.9 % (0-6); HEMATOCRIT 45.9 % (42.0-52.0); HEMOGLOBIN 15.7 g/dl (14.0-17.9); LYMPHOCYTES # (AUTO) 3.2 X10'3 (1.1-4.8); LYMPHOCYTES % (AUTO) 26.1 % (21-51); MEAN CORPUSCULAR HEMOGLOBIN 30.4 PG (27.0-31.0); MEAN CORPUSCULAR HGB CONC 34.1 g/dL (33.0-36.5); MEAN PLATELET VOLUME 8.6 FL (7.4-10.4); MONOCYTES # (AUTO) 1.1 X10'3 (0-0.9); MONOCYTES % (AUTO) 9.3 % (2-12); NEUTROPHILS # (AUTO) 7.6 X10'3 (1.8-7.7); NEUTROPHILS % (AUTO) 62.5 % (42-75); PLATELET COUNT 254 X10'3 (140-440); RED BLOOD COUNT 5.16 X10'6 (4.70-6.10); RED CELL DISTRIBUTION WIDTH 12.6 % (11.5-14.5); WHITE BLOOD COUNT 12.1 X10'3 (4.5-11.0)
[2022-11-28] MEDS ORDERED: morphine 4 MG/ML inj SYRINge IM ONE (21:00)
[2022-11-28] MEDS ORDERED: ondansetron 4mg rapidly disintigrating tab PO ONE (21:00)
[2022-11-28 21:16] LABS: CLARITY,URINE CLEAR (Clear); COLOR,URINE STRAW (Yellow); GLUCOSE, URINE NEGATIVE (Neg); KETONES,URINE NEGATIVE (Neg); LEUKOCYTE ESTERASE ,URINE NEGATIVE (Neg); NITRITES, URINE NEGATIVE (Neg); OCCULT BLOOD,URINE NEGATIVE (Neg); PH,URINE 6.5 (4.8-8.0); PROTEIN,URINE NEGATIVE (Neg); UA COLLECTION TYPE CLN CATCH MIDSTREAM; UROBILINOGEN,URINE 0.2 E.U/dL (0.2-1.0)
[2022-11-28] MEDS ORDERED: normal saline 1000ML IV soln IVB ONE (21:25)
[2022-11-28 22:12] LABS: URINE AMPHETAMINE SCREEN NEGATIVE (Neg); URINE BARBITUATE SCREEN NEGATIVE (Neg); URINE BENZODIAZEPINES SCREEN NEGATIVE (Neg); URINE CANNABINOID SCREEN NEGATIVE (Neg); URINE COCAINE SCREEN NEGATIVE (Neg); URINE METHADONE SCREEN NEGATIVE (Neg); URINE OPIATE SCREEN NEGATIVE (Neg); URINE PHENCYCLIDINE SCREEN NEGATIVE (Neg)
[2022-11-28 22:31] VITALS: BP 128/80
== END 2022-11-28 22:45 | disposition home or self-care (01) ==
LOC: ER 17:45
DX: R53.1 Weakness (principal); R07.89 Other chest pain; R41.0 Disorientation, unspecified; R26.2 Difficulty in walking, not elsewhere classified; I10 Essential (primary) hypertension; F17.200 Nicotine dependence, unspecified, uncomplicated; F12.90 Cannabis use, unspecified, uncomplicated; Z88.0 Allergy status to penicillin; Z88.1 Allergy status to other antibiotic agents; Z88.8 Allergy status to other drugs, medicaments and biological substances
CPT/HCPCS: 36415; 70450; 71045; 80053; 80305; 81003; 83880; 84484; 85025; 93005; 96360; 96372; 99285; J2270; J7030

== ENCOUNTER 2022-11-30 16:44 | Emergency (ER) | payer MEDICAID ==
[~2022-11-30] VITALS: Ht 177.8 cm; Wt 84.4 kg
[2022-11-30 17:08] LABS: BASOPHILS # (AUTO) 0.1 X10'3 (0-0.2); BASOPHILS % (AUTO) 1.3 % (0-1); EOSINOPHILS # (AUTO) 0.1 X10'3 (0-0.9); EOSINOPHILS % (AUTO) 0.7 % (0-6); HEMATOCRIT 45.7 % (42.0-52.0); HEMOGLOBIN 15.4 g/dl (14.0-17.9); LYMPHOCYTES # (AUTO) 3.3 X10'3 (1.1-4.8); LYMPHOCYTES % (AUTO) 30.6 % (21-51); MEAN CORPUSCULAR HEMOGLOBIN 29.8 PG (27.0-31.0); MEAN CORPUSCULAR HGB CONC 33.8 g/dL (33.0-36.5); MEAN CORPUSCULAR VOLUME 88.2 FL (78-98); MEAN PLATELET VOLUME 8.5 FL (7.4-10.4); MONOCYTES # (AUTO) 0.8 X10'3 (0-0.9); MONOCYTES % (AUTO) 7.1 % (2-12); NEUTROPHILS # (AUTO) 6.6 X10'3 (1.8-7.7); NEUTROPHILS % (AUTO) 60.3 % (42-75); PLATELET COUNT 261 X10'3 (140-440); RED BLOOD COUNT 5.18 X10'6 (4.70-6.10); RED CELL DISTRIBUTION WIDTH 12.5 % (11.5-14.5); WHITE BLOOD COUNT 10.9 X10'3 (4.5-11.0)
[2022-11-30 17:18] LABS: ALANINE AMINOTRANSFERASE 66 U/L (12-78); ALBUMIN/GLOBULIN RATIO 1.2 (1.1-1.5); ALKALINE PHOSPHATASE 73 IU/L (46-116); ANION GAP 8 (8-16); ASPARTATE AMINO TRANSFERASE 26 U/L (10-37); BILIRUBIN,TOTAL 0.8 MG/DL (0.1-1.0); BLOOD UREA NITROGEN 12 MG/DL (7-18); CALCIUM 9.2 MG/DL (8.5-10.1); CHLORIDE 105 MMOL/L (99-107); CREATININE 0.86 MG/DL (0.60-1.10); GLUCOSE 105 MG/DL (70-104); SODIUM 140 MMOL/L (135-145); TOTAL CARBON DIOXIDE 26.9 MMOL/L (24-32); TOTAL PROTEIN 7.4 G/DL (6.4-8.2); eGFR > 90 ML/MIN
[2022-11-30 19:38] LABS: OCCULT BLOOD STOOL NEGATIVE (Neg)
[2022-11-30 20:00] VITALS: BP 103/72
== END 2022-11-30 20:07 | disposition home or self-care (01) ==
LOC: ER 16:45
DX: R55 Syncope and collapse (principal); I10 Essential (primary) hypertension; F12.90 Cannabis use, unspecified, uncomplicated; K92.1 Melena; R10.32 Left lower quadrant pain; F15.20 Other stimulant dependence, uncomplicated; Z88.0 Allergy status to penicillin; Z88.1 Allergy status to other antibiotic agents; Z88.6 Allergy status to analgesic agent
CPT/HCPCS: 36415; 71045; 80053; 82272; 83880; 84484; 85025; 93005; 99285

== ENCOUNTER 2023-01-28 09:29 | Emergency (ER) | payer MEDICAID ==
[~2023-01-28] VITALS: Ht 177.8 cm; Wt 84.5 kg
[2023-01-28 09:37] VITALS: BP 118/84; PULSE 65; TEMP 97.9; O2SAT 98
[2023-01-28 09:50] LABS: BASOPHILS # (AUTO) 0.1 X10'3 (0-0.2); BASOPHILS % (AUTO) 0.9 % (0-1); EOSINOPHILS # (AUTO) 0.1 X10'3 (0-0.9); HEMATOCRIT 43.3 % (42.0-52.0); HEMOGLOBIN 14.6 g/dl (14.0-17.9); LYMPHOCYTES # (AUTO) 3.2 X10'3 (1.1-4.8); LYMPHOCYTES % (AUTO) 34.2 % (21-51); MEAN CORPUSCULAR HEMOGLOBIN 29.3 PG (27.0-31.0); MEAN CORPUSCULAR HGB CONC 33.6 g/dL (33.0-36.5); MEAN CORPUSCULAR VOLUME 87.2 FL (78-98); MEAN PLATELET VOLUME 7.7 FL (7.4-10.4); MONOCYTES % (AUTO) 11.1 % (2-12); NEUTROPHILS % (AUTO) 52.8 % (42-75); PLATELET COUNT 362 X10'3 (140-440); RED BLOOD COUNT 4.97 X10'6 (4.70-6.10); RED CELL DISTRIBUTION WIDTH 12.8 % (11.5-14.5); WHITE BLOOD COUNT 9.4 X10'3 (4.5-11.0)
[2023-01-28 09:58] LABS: ALANINE AMINOTRANSFERASE 96 U/L (12-78); ALBUMIN 3.7 G/DL (3.4-5.0); ALKALINE PHOSPHATASE 71 IU/L (46-116); ANION GAP 10 (8-16); ASPARTATE AMINO TRANSFERASE 91 U/L (10-37); BLOOD UREA NITROGEN 7 MG/DL (7-18); BUN/CREATININE RATIO 9.5 (10.0-20.0); CHLORIDE 103 MMOL/L (99-107); CREATININE 0.74 MG/DL (0.60-1.10); GLUCOSE 119 MG/DL (70-104); POTASSIUM 3.8 MMOL/L (3.5-5.1); SODIUM 141 MMOL/L (135-145); TOTAL CARBON DIOXIDE 28.2 MMOL/L (24-32); TOTAL PROTEIN 7.4 G/DL (6.4-8.2); eCRCL 151 ML/MIN; eGFR > 90 ML/MIN
[2023-01-28 10:06] LABS: PRO BRAIN NATRIURETIC PEPTIDE 65 PG/ML (0-125)
[2023-01-28 10:35] LABS: BILIRUBIN,TOTAL 1.1 MG/DL (0.1-1.0)
[2023-01-28 11:06] VITALS: RESP 16
[2023-01-28 11:18] LABS: BILIRUBIN,URINE NEGATIVE (Neg); CLARITY,URINE CLEAR (Clear); COLOR,URINE STRAW (Yellow); GLUCOSE, URINE NEGATIVE (Neg); KETONES,URINE NEGATIVE (Neg); LEUKOCYTE ESTERASE ,URINE NEGATIVE (Neg); NITRITES, URINE NEGATIVE (Neg); OCCULT BLOOD,URINE NEGATIVE (Neg); PROTEIN,URINE NEGATIVE (Neg); UROBILINOGEN,URINE 0.2 E.U/dL (0.2-1.0)
[2023-01-28 11:22] LABS: URINE AMPHETAMINE SCREEN NEGATIVE (Neg); URINE BARBITUATE SCREEN NEGATIVE (Neg); URINE BENZODIAZEPINES SCREEN POSITIVE (Neg); URINE CANNABINOID SCREEN NEGATIVE (Neg); URINE COCAINE SCREEN NEGATIVE (Neg); URINE METHADONE SCREEN NEGATIVE (Neg); URINE OPIATE SCREEN NEGATIVE (Neg); URINE PHENCYCLIDINE SCREEN NEGATIVE (Neg)
[2023-01-28 11:25] LABS: UA COLLECTION TYPE VOIDED
== END 2023-01-28 13:18 | disposition home or self-care (01) ==
LOC: ER 09:30
DX: F10.129 Alcohol abuse with intoxication, unspecified (principal); I10 Essential (primary) hypertension; F31.9 Bipolar disorder, unspecified; F20.9 Schizophrenia, unspecified; F17.200 Nicotine dependence, unspecified, uncomplicated; F15.10 Other stimulant abuse, uncomplicated; Z88.6 Allergy status to analgesic agent; Z88.8 Allergy status to other drugs, medicaments and biological substances; Y90.5 Blood alcohol level of 100-119 mg/100 ml
CPT/HCPCS: 36415; 71045; 80053; 80305; 80320; 81003; 83880; 84484; 85025; 93005; 99285

== ENCOUNTER 2023-03-24 06:55 | Emergency (ER) | payer MEDICAID ==
[~2023-03-24] VITALS: Ht 175.3 cm; Wt 90.0 kg
[~2023-03-24 06:55] MED LIST changes: -PREG150C46 PO; +PREG150C47 PO
[2023-03-24 07:00] VITALS: BP 121/85; PULSE 89; RESP 18; TEMP 97; O2SAT 97
[2023-03-24 08:02] LABS: BASOPHILS # (AUTO) 0.1 X10'3 (0-0.2); BASOPHILS % (AUTO) 0.5 % (0-1); EOSINOPHILS % (AUTO) 0.2 % (0-6); HEMATOCRIT 47.1 % (42.0-52.0); HEMOGLOBIN 16.1 g/dl (14.0-17.9); LYMPHOCYTES # (AUTO) 2.2 X10'3 (1.1-4.8); LYMPHOCYTES % (AUTO) 14.8 % (21-51); MEAN CORPUSCULAR HEMOGLOBIN 29.7 PG (27.0-31.0); MEAN CORPUSCULAR HGB CONC 34.1 g/dL (33.0-36.5); MEAN CORPUSCULAR VOLUME 87.1 FL (78-98); MEAN PLATELET VOLUME 8.4 FL (7.4-10.4); MONOCYTES # (AUTO) 0.8 X10'3 (0-0.9); MONOCYTES % (AUTO) 5.1 % (2-12); NEUTROPHILS # (AUTO) 12.1 X10'3 (1.8-7.7); NEUTROPHILS % (AUTO) 79.4 % (42-75); PLATELET COUNT 282 X10'3 (140-440); RED BLOOD COUNT 5.42 X10'6 (4.70-6.10); RED CELL DISTRIBUTION WIDTH 13.5 % (11.5-14.5); WHITE BLOOD COUNT 15.2 X10'3 (4.5-11.0)
[2023-03-24 08:15] LABS: ALANINE AMINOTRANSFERASE 53 U/L (12-78); ALBUMIN 4.3 G/DL (3.4-5.0); ALBUMIN/GLOBULIN RATIO 1.1 (1.1-1.5); ALKALINE PHOSPHATASE 74 IU/L (46-116); ANION GAP 12 (8-16); ASPARTATE AMINO TRANSFERASE 31 U/L (10-37); BILIRUBIN,TOTAL 0.7 MG/DL (0.1-1.0); BLOOD UREA NITROGEN 12 MG/DL (7-18); CALCIUM 9.1 MG/DL (8.5-10.1); CHLORIDE 104 MMOL/L (99-107); CREATININE 0.92 MG/DL (0.60-1.10); GLUCOSE 114 MG/DL (70-104); POTASSIUM 3.9 MMOL/L (3.5-5.1); SODIUM 138 MMOL/L (135-145); TOTAL PROTEIN 8.1 G/DL (6.4-8.2); eCRCL 117 ML/MIN; eGFR > 90 ML/MIN
[2023-03-24 08:22] LABS: AMYLASE 30 U/L (25-115); ETHANOL 138 MG/DL (<10); PRO BRAIN NATRIURETIC PEPTIDE 40 PG/ML (0-125)
[2023-03-24] MEDS ORDERED: proCHLORperazine 10 MG/2 ml inj IV ONE (11:35)
[2023-03-24] MEDS ORDERED: proCHLORperazine 10mg tablet PO ONE (11:55)
[2023-03-24] MEDS ORDERED: ondansetron 4mg rapidly disintigrating tab PO ONE (12:00)
== END 2023-03-24 13:48 | disposition home or self-care (01) ==
LOC: ER 06:56
DX: F10.129 Alcohol abuse with intoxication, unspecified (principal); I48.91 Unspecified atrial fibrillation; I10 Essential (primary) hypertension; F12.90 Cannabis use, unspecified, uncomplicated; F15.90 Other stimulant use, unspecified, uncomplicated; Z72.89 Other problems related to lifestyle; Z95.0 Presence of cardiac pacemaker; Z98.890 Other specified postprocedural states; Z86.14 Personal history of Methicillin resistant Staphylococcus aureus infection; Z88.0 Allergy status to penicillin; Z88.1 Allergy status to other antibiotic agents; Z88.8 Allergy status to other drugs, medicaments and biological substances; Z79.899 Other long term (current) drug therapy; Y90.6 Blood alcohol level of 120-199 mg/100 ml
CPT/HCPCS: 36415; 71045; 80053; 80320; 82150; 83880; 84484; 85025; 93005; 99285

== ENCOUNTER 2023-05-08 01:03 | Emergency (ER) | payer MEDICAID | END 2023-05-08 03:09 | disposition left against medical advice (07) | LOC: ER 01:03 | DX: Z04.6 Encounter for general psychiatric examination, requested by authority (principal); Z53.21 Procedure and treatment not carried out due to patient leaving prior to being seen by health care provider ==

== ENCOUNTER 2023-08-24 21:34 | Emergency (ER) | payer MEDICAID ==
[~2023-08-24] VITALS: Ht 177.8 cm; Wt 90.5 kg
[2023-08-24 22:32] LABS: BASOPHILS # (AUTO) 0.2 X10'3 (0-0.2); BASOPHILS % (AUTO) 1.6 % (0-1); EOSINOPHILS # (AUTO) 0.1 X10'3 (0-0.9); EOSINOPHILS % (AUTO) 0.6 % (0-6); HEMATOCRIT 51.7 % (42.0-52.0); HEMOGLOBIN 17.8 g/dl (14.0-17.9); LYMPHOCYTES # (AUTO) 3.3 X10'3 (1.1-4.8); LYMPHOCYTES % (AUTO) 28.5 % (21-51); MEAN CORPUSCULAR HGB CONC 34.4 g/dL (33.0-36.5); MEAN PLATELET VOLUME 7.8 FL (7.4-10.4); MONOCYTES # (AUTO) 1.2 X10'3 (0-0.9); MONOCYTES % (AUTO) 10.8 % (2-12); NEUTROPHILS # (AUTO) 6.8 X10'3 (1.8-7.7); NEUTROPHILS % (AUTO) 58.5 % (42-75); PLATELET COUNT 334 X10'3 (140-440); RED BLOOD COUNT 5.74 X10'6 (4.70-6.10); RED CELL DISTRIBUTION WIDTH 14.3 % (11.5-14.5); WHITE BLOOD COUNT 11.6 X10'3 (4.5-11.0)
[2023-08-24] MEDS: normal saline 1000ml 1,000 ML IV ONE (22:32)
[2023-08-24] MEDS: ondansetron/PF 4mg/2ml inj IV ONE (22:32)
[2023-08-24] MEDS: pantoprazole 40 MG vial IV ONE (22:32)
[2023-08-24 22:40] LABS: D-DIMER < 0.19 MG/L FEU (0-0.50); INR 1.1 INR; PROTHROMBIN TIME 11.6 SECONDS (9.0-12.0)
[2023-08-24 22:42] LABS: ALANINE AMINOTRANSFERASE 127 U/L (12-78); ALBUMIN 3.6 G/DL (3.4-5.0); ALKALINE PHOSPHATASE 96 IU/L (46-116); ANION GAP 15 (8-16); ASPARTATE AMINO TRANSFERASE 176 U/L (10-37); BILIRUBIN,TOTAL 1.3 MG/DL (0.1-1.0); BLOOD UREA NITROGEN 10 MG/DL (7-18); BUN/CREATININE RATIO 9.3 (10.0-20.0); CALCIUM 8.6 MG/DL (8.5-10.1); CHLORIDE 104 MMOL/L (99-107); CREATININE 1.07 MG/DL (0.60-1.10); GLUCOSE 105 MG/DL (70-104); POTASSIUM 3.6 MMOL/L (3.5-5.1); SODIUM 143 MMOL/L (135-145); TOTAL CARBON DIOXIDE 24.4 MMOL/L (24-32); TOTAL PROTEIN 7.2 G/DL (6.4-8.2); eCRCL 103 ML/MIN; eGFR 81 ML/MIN
[2023-08-24 22:50] LABS: ETHANOL 113 MG/DL (<10); PRO BRAIN NATRIURETIC PEPTIDE < 30 PG/ML (0-125)
[2023-08-24] MEDS ORDERED: ONDA8TAB13 PO (23:36)
[2023-08-24] MEDS ORDERED: PANT-47 PO (23:36)
[2023-08-24] MEDS: fentaNYL/PF 50MCG/1 ML 2ML syringe IV ONE (23:49)
[2023-08-24 23:53] LABS: URINE AMPHETAMINE SCREEN NEGATIVE (Neg); URINE BARBITUATE SCREEN NEGATIVE (Neg); URINE BENZODIAZEPINES SCREEN NEGATIVE (Neg); URINE CANNABINOID SCREEN NEGATIVE (Neg); URINE COCAINE SCREEN NEGATIVE (Neg); URINE METHADONE SCREEN NEGATIVE (Neg); URINE OPIATE SCREEN NEGATIVE (Neg); URINE PHENCYCLIDINE SCREEN NEGATIVE (Neg)
[2023-08-24] MEDS: proCHLORperazine 10 MG/2 ml inj IV ONE (23:54)
[2023-08-25 00:01] VITALS: BP 137/87; PULSE 75; RESP 12; TEMP 98.2; O2SAT 98
== END 2023-08-25 00:02 | disposition home or self-care (01) ==
LOC: ER 21:35
DX: R11.10 Vomiting, unspecified (principal); R05.9 Cough, unspecified; I10 Essential (primary) hypertension; F12.90 Cannabis use, unspecified, uncomplicated; F15.90 Other stimulant use, unspecified, uncomplicated; Z88.8 Allergy status to other drugs, medicaments and biological substances; Z88.6 Allergy status to analgesic agent; Z88.0 Allergy status to penicillin; Z88.1 Allergy status to other antibiotic agents; Z79.899 Other long term (current) drug therapy
CPT/HCPCS: 36415; 71045; 80053; 80305; 80320; 83735; 83880; 84484; 85025; 85379; 85610; 93005; 96365; 96375; 99285; C9113; J2405; J3010; J7030

== ENCOUNTER 2023-08-28 06:21 | Emergency (ER) | payer MEDICAID ==
[~2023-08-28] VITALS: Ht 177.8 cm; Wt 90.7 kg
[~2023-08-28 06:21] MED LIST changes: +ONDA8TAB13 PO; +PANT-47 PO
[2023-08-28] MEDS ORDERED: pantoprazole 40mg IV 80 MG in normal saline 100ml IV soln 100 ML IV ONE (07:15)
[2023-08-28 07:42] LABS: EOSINOPHILS # (AUTO) 0.1 X10'3 (0-0.9); HEMOGLOBIN 17.2 g/dl (14.0-17.9); LYMPHOCYTES # (AUTO) 3.7 X10'3 (1.1-4.8); MEAN CORPUSCULAR VOLUME 90.7 FL (78-98); MEAN PLATELET VOLUME 7.7 FL (7.4-10.4); RED CELL DISTRIBUTION WIDTH 14.5 % (11.5-14.5)
[2023-08-28 07:44] LABS: BASOPHILS # (AUTO) 0.2 X10'3 (0-0.2); BILIRUBIN,URINE NEGATIVE (Neg); CLARITY,URINE CLEAR (Clear); COLOR,URINE YELLOW (Yellow); EOSINOPHILS % (AUTO) 0.3 % (0-6); GLUCOSE, URINE NEGATIVE (Neg); HEMATOCRIT 49.9 % (42.0-52.0); KETONES,URINE NEGATIVE (Neg); LYMPHOCYTES % (AUTO) 23.1 % (21-51); MEAN CORPUSCULAR HEMOGLOBIN 31.3 PG (27.0-31.0); MEAN CORPUSCULAR HGB CONC 34.5 g/dL (33.0-36.5); MONOCYTES % (AUTO) 6.5 % (2-12); NEUTROPHILS # (AUTO) 10.9 X10'3 (1.8-7.7); NEUTROPHILS % (AUTO) 69.1 % (42-75); NITRITES, URINE POSITIVE (Neg); OCCULT BLOOD,URINE TRACE-INTACT (Neg); PLATELET COUNT 320 X10'3 (140-440); PROTEIN,URINE TRACE mg/dl (Neg); RED BLOOD COUNT 5.51 X10'6 (4.70-6.10); UROBILINOGEN,URINE 0.2 E.U/dL (0.2-1.0); WHITE BLOOD COUNT 15.8 X10'3 (4.5-11.0)
[2023-08-28] MEDS: normal saline 1000ML IV soln IVB ONE (07:45)
[2023-08-28] MEDS: ondansetron/PF 4mg/2ml inj IV ONE ×2 (07:48→08:52)
[2023-08-28] MEDS: pantoprazole 40 MG vial IV SCH (07:49)
[2023-08-28 07:52] LABS: LEUKOCYTE ESTERASE ,URINE TRACE (Neg); UA COLLECTION TYPE CLN CATCH MIDSTREAM
[2023-08-28 07:53] LABS: BACTERIA,URINE FEW /HPF (Neg); FINE GRANULAR CAST 0-3 /LPF (NEGATIVE); HYALINE CASTS 0-3 /LPF (NEGATIVE); MUCUS STRANDS NONE SEEN /LPF (Neg); RBC,URINE 0-2 /HPF (0-2); SQUAMOUS EPITHELIAL CELL,UR FEW /LPF (FEW)
[2023-08-28 07:55] LABS: URINE AMPHETAMINE SCREEN NEGATIVE (Neg); URINE BARBITUATE SCREEN NEGATIVE (Neg); URINE BENZODIAZEPINES SCREEN NEGATIVE (Neg); URINE CANNABINOID SCREEN NEGATIVE (Neg); URINE COCAINE SCREEN NEGATIVE (Neg); URINE METHADONE SCREEN NEGATIVE (Neg); URINE OPIATE SCREEN NEGATIVE (Neg); URINE PHENCYCLIDINE SCREEN NEGATIVE (Neg)
[2023-08-28] MEDS: LORazepam 2 mg/ml vial IV ONE (07:58)
[2023-08-28 07:59] LABS: ALANINE AMINOTRANSFERASE 128 U/L (12-78); ALBUMIN 3.6 G/DL (3.4-5.0); ALKALINE PHOSPHATASE 124 IU/L (46-116); ANION GAP 12 (8-16); ASPARTATE AMINO TRANSFERASE 193 U/L (10-37); BILIRUBIN,TOTAL 0.7 MG/DL (0.1-1.0); BLOOD UREA NITROGEN 8 MG/DL (7-18); BUN/CREATININE RATIO 6.9 (10.0-20.0); CALCIUM 7.6 MG/DL (8.5-10.1); CHLORIDE 103 MMOL/L (99-107); CREATININE 1.16 MG/DL (0.60-1.10); GLUCOSE 108 MG/DL (70-104); POTASSIUM 3.3 MMOL/L (3.5-5.1); SODIUM 141 MMOL/L (135-145); TOTAL CARBON DIOXIDE 26.1 MMOL/L (24-32); TOTAL PROTEIN 7.2 G/DL (6.4-8.2); eCRCL 95 ML/MIN; eGFR 73 ML/MIN
[2023-08-28] MEDS: magnesium 2GM in 50ml NS 50 ML IV ONE (08:03)
[2023-08-28 08:05] LABS: ETHANOL 219 MG/DL (<10); LIPASE 41 U/L (16-77); MAGNESIUM 1.9 MG/DL (1.5-2.4)
[2023-08-28] MEDS: morphine 4 MG/ML inj SYRINge IV ONE (08:56)
[2023-08-28 10:11] LABS: GASTRIC OCCULT BLOOD NEGATIVE (Neg)
[2023-08-28] MEDS: morphine 2 MG/ML inj. syringe IV PRN (10:11)
[2023-08-28] MEDS: metoclopramide 5 mg/ml inj IV ONE (10:13)
[2023-08-28 10:23] VITALS: TEMP 98.2
[2023-08-28] MEDS: normal saline 1000ml 1,000 ML IV ONE (10:51)
[2023-08-28] MEDS: CefTRIAXone 2gm/D5W 50ml BAG 50 ML IV ONE (10:52)
[2023-08-28] MEDS ORDERED: CEPH250T PO (11:37)
[2023-08-28] MEDS ORDERED: METO-292 PO (11:37)
[2023-08-28] MEDS ORDERED: CHLO25CA10 PO (11:37)
[2023-08-28] MEDS ORDERED: PANT20TA18 PO (11:37)
[2023-08-28 12:03] VITALS: BP 111/61; PULSE 69; RESP 14; O2SAT 96
== END 2023-08-28 12:07 | disposition home or self-care (01) ==
LOC: ER 06:21
DX: K29.70 Gastritis, unspecified, without bleeding (principal); N39.0 Urinary tract infection, site not specified; F10.129 Alcohol abuse with intoxication, unspecified; I10 Essential (primary) hypertension; F41.9 Anxiety disorder, unspecified; F32.A Depression, unspecified; F20.9 Schizophrenia, unspecified; I48.91 Unspecified atrial fibrillation; F12.90 Cannabis use, unspecified, uncomplicated; F15.90 Other stimulant use, unspecified, uncomplicated; Z88.1 Allergy status to other antibiotic agents; Z88.8 Allergy status to other drugs, medicaments and biological substances; Z79.899 Other long term (current) drug therapy; Z79.2 Long term (current) use of antibiotics; Z86.711 Personal history of pulmonary embolism; Y90.9 Presence of alcohol in blood, level not specified
CPT/HCPCS: 71045; 80053; 80305; 80320; 81001; 82271; 83690; 83735; 84484; 85025; 87088; 93005; 96365; 96366; 96367; 96375; 96376; 99285; C9113; J0696; J2270; J2405; J2765; J3475; J7030

== ENCOUNTER 2023-08-31 20:42 | Emergency (ER) | payer MEDICAID ==
[~2023-08-31] VITALS: Ht 180.3 cm; Wt 89.1 kg
[~2023-08-31 20:42] MED LIST changes: +CEPH250T PO; +CHLO25CA10 PO; +METO-292 PO; +PANT20TA18 PO
[2023-08-31 20:52] VITALS: PULSE 71; TEMP 98.1
[2023-08-31 21:11] LABS: BILIRUBIN,URINE NEGATIVE (Neg); CLARITY,URINE CLEAR (Clear); COLOR,URINE YELLOW (Yellow); GLUCOSE, URINE NEGATIVE (Neg); KETONES,URINE NEGATIVE (Neg); LEUKOCYTE ESTERASE ,URINE NEGATIVE (Neg); NITRITES, URINE NEGATIVE (Neg); OCCULT BLOOD,URINE TRACE-INTACT (Neg); PH,URINE 7.5 (4.8-8.0); PROTEIN,URINE 100 mg/dl (Neg); UROBILINOGEN,URINE 0.2 E.U/dL (0.2-1.0)
[2023-08-31 21:19] LABS: SQUAMOUS EPITHELIAL CELL,UR FEW /LPF (FEW); UA COLLECTION TYPE CLN CATCH MIDSTREAM
[2023-08-31 21:20] LABS: BACTERIA,URINE FEW /HPF (Neg); RBC,URINE 0-2 /HPF (0-2); WBC,URINE 0-4 /HPF (0-4)
[2023-08-31 21:37] LABS: URINE AMPHETAMINE SCREEN NEGATIVE (Neg); URINE BARBITUATE SCREEN NEGATIVE (Neg); URINE BENZODIAZEPINES SCREEN NEGATIVE (Neg); URINE CANNABINOID SCREEN NEGATIVE (Neg); URINE COCAINE SCREEN NEGATIVE (Neg); URINE METHADONE SCREEN NEGATIVE (Neg); URINE OPIATE SCREEN NEGATIVE (Neg); URINE PHENCYCLIDINE SCREEN NEGATIVE (Neg)
[2023-08-31] MEDS ORDERED: morphine 2 MG/ML inj. syringe IV STA (22:55)
[2023-08-31] MEDS ORDERED: morphine 4 MG/ML inj SYRINge IV ONE (22:55)
[2023-08-31] MEDS: normal saline 1000ml 1,000 ML IV ONE (23:41)
[2023-08-31] MEDS: ondansetron/PF 4mg/2ml inj IV ONE (23:41)
[2023-08-31] MEDS: morphine 2 MG/ML inj. syringe IV STA (23:41)
[2023-09-01 00:03] LABS: MEAN PLATELET VOLUME 7.5 FL (7.4-10.4)
[2023-09-01 00:04] LABS: HEMATOCRIT 46.7 % (42.0-52.0); HEMOGLOBIN 16.5 g/dl (14.0-17.9); MEAN CORPUSCULAR HEMOGLOBIN 31.9 PG (27.0-31.0); MEAN CORPUSCULAR HGB CONC 35.3 g/dL (33.0-36.5); MEAN CORPUSCULAR VOLUME 90.5 FL (78-98); PLATELET COUNT 235 X10'3 (140-440); RED BLOOD COUNT 5.17 X10'6 (4.70-6.10); RED CELL DISTRIBUTION WIDTH 14.5 % (11.5-14.5); WHITE BLOOD COUNT 7.5 X10'3 (4.5-11.0)
[2023-09-01 00:12] LABS: ALANINE AMINOTRANSFERASE 173 U/L (12-78); ALBUMIN 3.2 G/DL (3.4-5.0); ALKALINE PHOSPHATASE 102 IU/L (46-116); ANION GAP 10 (8-16); ASPARTATE AMINO TRANSFERASE 250 U/L (10-37); BILIRUBIN,TOTAL 1.6 MG/DL (0.1-1.0); BLOOD UREA NITROGEN 6 MG/DL (7-18); BUN/CREATININE RATIO 6.4 (10.0-20.0); CALCIUM 8.2 MG/DL (8.5-10.1); CHLORIDE 105 MMOL/L (99-107); CREATININE 0.94 MG/DL (0.60-1.10); GLUCOSE 102 MG/DL (70-104); LIPASE 36 U/L (16-77); POTASSIUM 3.5 MMOL/L (3.5-5.1); SODIUM 143 MMOL/L (135-145); TOTAL PROTEIN 6.5 G/DL (6.4-8.2); eCRCL 121 ML/MIN; eGFR > 90 ML/MIN
[2023-09-01] MEDS ORDERED: ONDA4TAB12 PO (00:39)
[2023-09-01 00:41] LABS: PLATELET ESTIMATE NORMAL; TOTAL CELLS COUNTED 100
[2023-09-01 01:20] VITALS: BP 132/85; RESP 16; O2SAT 98
== END 2023-09-01 01:22 | disposition home or self-care (01) ==
LOC: ER 20:43
DX: R10.32 Left lower quadrant pain (principal); R11.2 Nausea with vomiting, unspecified; R42 Dizziness and giddiness; M79.10 Myalgia, unspecified site; I11.0 Hypertensive heart disease with heart failure; F31.9 Bipolar disorder, unspecified; F20.9 Schizophrenia, unspecified; F12.10 Cannabis abuse, uncomplicated; F15.10 Other stimulant abuse, uncomplicated; Z87.81 Personal history of (healed) traumatic fracture; Z79.899 Other long term (current) drug therapy; Z88.8 Allergy status to other drugs, medicaments and biological substances; Z88.0 Allergy status to penicillin; Z88.1 Allergy status to other antibiotic agents
CPT/HCPCS: 36415; 76700; 80053; 80305; 81001; 83690; 85007; 85025; 96361; 96374; 96375; 99285; J2270; J2405; J7030

== ENCOUNTER 2023-09-01 04:16 | Emergency (ER) | payer MEDICAID ==
[~2023-09-01] VITALS: Ht 177.8 cm; Wt 98.6 kg
[~2023-09-01 04:16] MED LIST changes: +ONDA4TAB12 PO
[2023-09-01 04:26] VITALS: BP 120/69; PULSE 65; RESP 16; TEMP 98.2; O2SAT 98
== END 2023-09-01 08:12 | disposition left against medical advice (07) ==
LOC: ER 04:17
DX: R11.2 Nausea with vomiting, unspecified (principal); Z53.21 Procedure and treatment not carried out due to patient leaving prior to being seen by health care provider
CPT/HCPCS: 99281

== ENCOUNTER 2024-01-19 04:04 | Emergency (ER) | payer MEDICAID ==
[~2024-01-19] VITALS: Ht 175.3 cm; Wt 75.2 kg
[~2024-01-19 04:04] MED LIST changes: +ONDA-243 PO; +ONDA-245 PO; -ONDA4TAB12 PO; -ONDA8TAB13 PO
[2024-01-19 05:57] VITALS: BP 139/99; PULSE 73; RESP 16; TEMP 97.8; O2SAT 99
== END 2024-01-19 06:25 | disposition home or self-care (01) ==
LOC: ER 04:05
DX: I48.91 Unspecified atrial fibrillation (principal); I10 Essential (primary) hypertension; F41.9 Anxiety disorder, unspecified; F32.A Depression, unspecified; F12.90 Cannabis use, unspecified, uncomplicated; F15.90 Other stimulant use, unspecified, uncomplicated; R40.4 Transient alteration of awareness; M54.2 Cervicalgia; Z88.8 Allergy status to other drugs, medicaments and biological substances; Z88.6 Allergy status to analgesic agent; Z91.041 Radiographic dye allergy status; Z88.0 Allergy status to penicillin; Z88.1 Allergy status to other antibiotic agents; Z79.899 Other long term (current) drug therapy; Z79.2 Long term (current) use of antibiotics
CPT/HCPCS: 70450; 72125; 93005; 99284